=== PATIENT | male | born 1970 | race Caucasian/White ===

== ENCOUNTER 2019-04-21 17:09 | Emergency (ER) | payer SELFPAY ==
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
== END 2019-04-21 17:27 | disposition home or self-care (01) ==
LOC: ER 17:09
DX: Z48.02 Encounter for removal of sutures (principal)
CPT/HCPCS: 99282

== ENCOUNTER 2022-07-28 17:37 | Emergency (ER) | payer SELFPAY ==
--- NOTE | 2022-07-28 18:56 | ER ---
Nurse's Notes [facility] Name: All Bazan Jr Age: 52 yrs Sex: Male : 1970 Arrival Date: 07/28/2022 Time: 17:38 Bed DIS1 Private MD: Diagnosis: Scabies Presentation: 07/28 18:53 Chief complaint: Patient states: he has been around someone with scabes and now has a ap3 rash and believes that is what he has. Coronavirus screen: At this time, the client does not indicate any symptoms associated with coronavirus-19. Ebola Screen: No symptoms or risks identified at this time. Initial Sepsis Screen: Does the patient meet any 2 criteria? No. Patient's initial sepsis screen is negative. Does the patient have a suspected source of infection? No. Patient's initial sepsis screen is negative. Risk Assessment: Do you want to hurt yourself or someone else? Patient reports no desire to harm self or others. Onset of symptoms was July 28, 2022. 18:53 Method Of Arrival: Ambulatory ap3 18:53 Acuity: MACIE 4 ap3 Triage Assessment: 18:54 General: Appears uncomfortable, Behavior is calm, cooperative. Pain: Complains of pain ap3 in all over. Neuro: Level of Consciousness is awake, alert, obeys commands, Oriented to person, place, time. Cardiovascular: Patient's skin is warm and dry. Respiratory: Airway is patent Respiratory effort is even, unlabored. Derm: Rash noted that is on face, back, chest, abdomen, right arm, left arm, right leg and left leg. Historical: - Allergies: 18:53 No Known Allergies; ap3 - PMHx: 18:53 Hypertension; Diabetes mellitus; Hypercholesterolemia; ap3 - Immunization history:: Client reports receiving the 2nd dose of the Covid vaccine, Flu vaccine is up to date. - Social history:: Smoking status: Patient reports the use of cigarette tobacco products, denies chronic smoking, but will smoke occasionally. Screenin:55 Abuse screen: Denies threats or abuse. Nutritional screening: No deficits noted. ap3 Tuberculosis screening: No symptoms or risk factors identified. Fall Risk None identified. Assessment: 19:12 General: Appears in no apparent distress. tw5 Vital Signs: 18:53 BP 124 / 75; Pulse 110; Temp 92.3; Pulse Ox 100% ; Weight 136.08 kg; Height 6 ft. ap3 (182.88 cm); 18:53 Body Mass Index 40.69 (136.08 kg, 182.88 cm) ap3 ED Course: 17:38 Patient arrived in ED. as 17:50 Jacqueline Bauer [facility]-C [facility] snw 17:50 Jose A Pearson MD is Attending Physician. snw 18:53 Triage completed. ap3 18:55 Arm band placed on right wrist. ap3 18:55 Patient has correct armband on for positive identification. ap3 18:55 No provider procedures requiring assistance completed. Patient did not have IV access ap3 during this emergency room visit. Administered Medications: No medications were administered Medication: 18:55 VIS not applicable for this client. ap3 Outcome: 18:55 Discharge ordered by . snw 19:12 Discharged to home ambulatory. tw5 19:12 Condition: good 19:12 Discharge instructions given to patient, Instructed on discharge instructions, follow up and referral plans. medication usage, Demonstrated understanding of instructions, follow-up care, medications, Prescriptions given X 2. 19:13 Patient left the ED. tw5 Signatures: Jacqueline Bauer FNP-C PAYROLL SECRETARY-Gissel Chase Amanda, RN RN ap3 Roxanne Mina tw5
--- NOTE | 2022-07-28 18:56 | EDPHYS ---
Physician Documentation [facility] Name: All Bazan Jr Age: 52 yrs Sex: Male : 1970 Arrival Date: 07/28/2022 Time: 17:38 Bed DIS1 Private MD: ED Physician Jose A Pearson HPI: 07/28 19:01 This 52 yrs old Male presents to ER via Ambulatory with complaints of Rash. snw 19:01 The patient's rash thought to be caused by Dermatitis. The rash is located on the body snw diffusely. The rash can be described as papular, linear burrows. Onset: The symptoms/episode began/occurred acutely, suddenly. Associated signs and symptoms: Pertinent positives: itching. Severity of symptoms: At their worst the symptoms were moderate severe. The patient has not experienced similar symptoms in the past. The patient has not recently seen a physician. Historical: - Allergies: 18:53 No Known Allergies; ap3 - PMHx: 18:53 Hypertension; Diabetes mellitus; Hypercholesterolemia; ap3 - Immunization history:: Client reports receiving the 2nd dose of the Covid vaccine, Flu vaccine is up to date. - Social history:: Smoking status: Patient reports the use of cigarette tobacco products, denies chronic smoking, but will smoke occasionally. ROS: 19:01 Constitutional: Negative for fever, chills, and weight loss, Eyes: Negative for injury, snw pain, redness, and discharge, ENT: Negative for injury, pain, and discharge, Neck: Negative for injury, pain, and swelling, Cardiovascular: Negative for chest pain, palpitations, and edema, Respiratory: Negative for shortness of breath, cough, wheezing, and pleuritic chest pain, Abdomen/GI: Negative for abdominal pain, nausea, vomiting, diarrhea, and constipation, Back: Negative for injury and pain, : Negative for injury, bleeding, discharge, and swelling, MS/Extremity: Negative for injury and deformity, Neuro: Negative for headache, weakness, numbness, tingling, and seizure, Psych: Negative for depression, anxiety, suicide ideation, homicidal ideation, and hallucinations. 19:01 Skin: Positive for rash. Exam: 19:00 Constitutional: This is a well developed, well nourished patient who is awake, alert, snw and in no acute distress. Eyes: Pupils equal round and reactive to light, extra-ocular motions intact. Lids and lashes normal. Conjunctiva and sclera are non-icteric and not injected. Cornea within normal limits. Periorbital areas with no swelling, redness, or edema. ENT: Nares patent. No nasal discharge, no septal abnormalities noted. Tympanic membranes are normal and external auditory canals are clear. Oropharynx with no redness, swelling, or masses, exudates, or evidence of obstruction, uvula midline. Mucous membranes moist. Neck: Trachea midline, no thyromegaly or masses palpated, and no cervical lymphadenopathy. Supple, full range of motion without nuchal rigidity, or vertebral point tenderness. No Meningismus. Chest/axilla: Normal chest wall appearance and motion. Nontender with no deformity. No lesions are appreciated. Cardiovascular: Regular rate and rhythm with a normal S1 and S2. No gallops, murmurs, or rubs. Normal PMI, no JVD. No pulse deficits. Respiratory: Lungs have equal breath sounds bilaterally, clear to auscultation and percussion. No rales, rhonchi or wheezes noted. No increased work of breathing, no retractions or nasal flaring. Abdomen/GI: Soft, non-tender, with normal bowel sounds. No distension or tympany. No guarding or rebound. No evidence of tenderness throughout. Back: No spinal tenderness. No costovertebral tenderness. Full range of motion. MS/ Extremity: Pulses equal, no cyanosis. Neurovascular intact. Full, normal range of motion. Neuro: Awake and alert, GCS 15, oriented to person, place, time, and situation. Cranial nerves II-XII grossly intact. Motor strength 5/5 in all extremities. Sensory grossly intact. Cerebellar exam normal. Normal gait. Psych: Awake, alert, with orientation to person, place and time. Behavior, mood, and affect are within normal limits. 19:00 Head/face: Noted is rash, around nares. 19:00 Skin: rash a moderate rash is noted, scabies. Vital Signs: 18:53 BP 124 / 75; Pulse 110; Temp 92.3; Pulse Ox 100% ; Weight 136.08 kg; Height 6 ft. ap3 (182.88 cm); 18:53 Body Mass Index 40.69 (136.08 kg, 182.88 cm) ap3 MDM: 18:55 Patient medically screened. snw 19:01 Data reviewed: vital signs, nurses notes. Data interpreted: Pulse oximetry: on room air snw is 100 %. Interpretation: normal. Counseling: I had a detailed discussion with the patient and/or guardian regarding: the historical points, exam findings, and any diagnostic results supporting the discharge/admit diagnosis, the need for outpatient follow up, to return to the emergency department if symptoms worsen or persist or if there are any questions or concerns that arise at home. Special discussion: I have referred the patient to see his PCP for further evaluation of high blood pressure. Based on the history and exam findings, there is no indication for further emergent testing or inpatient evaluation. I discussed with the patient/guardian the need to see the primary care provider for further evaluation of the symptoms. Administered Medications: No medications were administered Disposition Summary: 07/28/22 18:55 Discharge Ordered Location: Home snw Condition: Stable snw Diagnosis - Scabies snw Followup: snw - With: Emergency Department - When: As needed - Reason: Worsening of condition Followup: snw - With: Private Physician - When: 2 - 3 days - Reason: Recheck today's complaints, Continuance of care, Re-evaluation by your physician Discharge Instructions: - Discharge Summary Sheet snw - Scabies, Adult snw Forms: - Medication Reconciliation Form snw - Thank You Letter snw - Antibiotic Education snw - Prescription Opioid Use snw - Work release form hb Prescriptions: - Elimite 5 % Topical Cream - apply 1 application by TOPICAL route one time Wash after 12 hours.; 60 gram; snw Refills: 0, Product Selection Permitted - Hydroxyzine HCl 50 mg Oral Tablet - take 1 tablet by ORAL route every 8 hours As needed; 20 tablet; Refills: 0, snw Product Selection Permitted Addendum: 07/31/2022 19:07 Co-signature as Attending Physician, Jose A Pearson MD. r n Signatures: Jacqueline Bauer, SHAPE CARVER-C SHAPE CARVER-Csnw Jose A Pearson MD MD rn Prokisch, Amanda, RN RN ap3
[2022-07-28 20:24] VITALS: BP 124/75; TEMP 92.3; O2SAT 100
== END 2022-07-28 19:13 | disposition home or self-care (01) ==
LOC: ER 17:37
DX: B86 Scabies (principal); Z72.0 Tobacco use
CPT/HCPCS: 99281

== ENCOUNTER → 2023-10-26 | Emergency (ER) | payer SELFPAY ==
[~2023-10-26] MED LIST: CLINDAMYCIN 900MG/D5W 900 MG/50 ML IVPB IV ONE; HYDROCODONE/APAP 5/325 MG TAB ONE; IBUPROFEN 400 MG TAB ONE; NA CHLORIDE 0.9% 1,000 ML ONE; SMZ./TMP. 800/160 MG TABLET ONE; dexAMETHasone 10 MG/ML VIAL ONE
--- NOTE | 2023-10-26 19:50 | RAD REPORT ---
EXAM DESCRIPTION: PEG - HAND - 10/26/2023 7:27 pm CLINICAL HISTORY: Pain;Swelling COMPARISON: No comparisons TECHNIQUE: Left hand, 3 views. FINDINGS: No fracture is identified. There is no dislocation or periosteal reaction noted. Joint alignment is maintained. No foreign body or other soft tissue abnormality. IMPRESSION: Negative left hand examination.
[2023-10-26 20:02] LABS: Absolute Basophils 0.1 K/uL (0-0.5); Absolute Lymphocytes (CBC) 1.7 K/uL (0.7-4.9); Hematocrit 48.5 % (39.6-49.0); Lymphocytes % 16.1 % (15.3-44.8); MCV 85.5 fL (80-100); MPV 9.4 fL (7.6-11.3); Platelets 203 thou/uL (152-406); RBC Red Blood Cell Count 5.67 M/uL (4.33-5.43)
[2023-10-26 20:12] LABS: Anion Gap 8.9 mEq/L (5.0-15.0); Potassium 3.9 mEq/L (3.5-5.1)
--- NOTE | 2023-10-26 21:13 | ER ---
Nurse's Notes [facility] Name: All Bazan Jr Age: 53 yrs Sex: Male : 1970 Arrival Date: 10/26/2023 Time: 18:29 Bed 9 Private MD: Diagnosis: Cellulitis of left upper limb Presentation: 10/25 19:04 Chief complaint: Patient states: insect bite to left hand about 2 days ago with redness km8 and swelling; denies fever. Coronavirus screen: Client denies travel out of the [place] in the last 14 days. Ebola Screen: No symptoms or risks identified at this time. Initial Sepsis Screen: Does the patient meet any 2 criteria? HR > 90 bpm. No. Patient's initial sepsis screen is negative. Does the patient have a suspected source of infection? No. Patient's initial sepsis screen is negative. Risk Assessment: Do you want to hurt yourself or someone else? Patient reports no desire to harm self or others. Onset of symptoms was October 24, 2023. 19:04 Method Of Arrival: Ambulatory [facility] 19:04 Acuity: MACIE 3 km8 Triage Assessment: 19:08 Bite description: bite sustained to left hand was sustained 2 days ago. by insect, km8 animal information: vaccination(s) is not applicable. General: Appears in no apparent distress. comfortable, Behavior is calm, cooperative, appropriate for age. Pain: Complains of pain in left hand Pain currently is 5 out of 10 on a pain scale. Neuro: Level of Consciousness is awake, alert, obeys commands, Oriented to person, place, time, situation. Cardiovascular: Denies chest pain, shortness of breath, Patient's skin is warm and dry. Respiratory: Airway is patent Respiratory effort is even, unlabored, Respiratory pattern is regular, symmetrical. Derm: Skin is healthy with good turgor, Skin is dry, Skin is pink, warm \T\ dry. Skin temperature is warm Wound noted left hand Wound is insect bite with redness and swelling noted. Musculoskeletal: Swelling present in left hand. Historical: - Allergies: 19:08 No Known Allergies; km8 - PMHx: 19:08 diabetes mellitus; Hypercholesterolemia; Hypertension; km8 - PSHx: 19:08 Tonsillectomy; km8 - Immunization history:: Client reports receiving the 2nd dose of the Covid vaccine, Flu vaccine is not up to date. - Social history:: Smoking status: Patient reports the use of cigarette tobacco products, smokes one-half pack cigarettes per day, Patient uses street drugs, cocaine, Patient/guardian denies using alcohol. Screenin:00 [facility] ED Fall Risk Assessment (Adult) History of falling in the last 3 months, ha1 including since admission No falls in past 3 months (0 pts) Confusion or Disorientation No (0 pts) Intoxicated or Sedated No (0 pts) Impaired Gait No (0 pts) Mobility Assist Device Used No (0 pt) Altered Elimination No (0 pt) Score/Fall Risk Level 0 - 2 = Low Risk Oriented to surroundings, Maintained a safe environment, Hourly rounding (assess needs \T\ fall precautionary measures) done. Abuse screen: Denies threats or abuse. Denies injuries from another. Nutritional screening: No deficits noted. Tuberculosis screening: No symptoms or risk factors identified. Assessment: 19:20 General: Appears uncomfortable, Behavior is calm, cooperative. Pain: Complains of pain ha1 in left hand Pain does not radiate. Pain currently is 7 out of 10 on a pain scale. Quality of pain is described as throbbing. Neuro: Level of Consciousness is awake, alert, obeys commands, Oriented to person, place, time, situation. Cardiovascular: Capillary refill < 3 seconds Patient's skin is warm and dry. Respiratory: Airway is patent Respiratory effort is even, unlabored, Respiratory pattern is regular, symmetrical. GI: No signs and/or symptoms were reported involving the gastrointestinal system. Derm: redness and swelling on the left hand. Musculoskeletal: Circulation, motion, and sensation intact. Range of motion: intact in all extremities. 20:10 Reassessment: Patient and/or family updated on plan of care and expected duration. Pain ha1 level reassessed. Patient is alert, oriented x 3, equal unlabored respirations, skin warm/dry/pink. 20:53 Reassessment: provided turkey sandwich and a drink. ha1 20:56 Reassessment: Patient and/or family updated on plan of care and expected duration. Pain ha1 level reassessed. Patient is alert, oriented x 3, equal unlabored respirations, skin warm/dry/pink. Patient states feeling better. Patient states symptoms have improved. 21:28 Reassessment: Patient and/or family updated on plan of care and expected duration. Pain ha1 level reassessed. Patient is alert, oriented x 3, equal unlabored respirations, skin warm/dry/pink. Vital Signs: 19:04 BP 181 / 160; Pulse 103; Resp 16; Temp 97.6(TE); Pulse Ox 99% on R/A; Weight 115.67 kg km8 (R); Height 6 ft. 0 in. (R); Pain 5/10; 19:20 BP 162 / 95; Pulse 98; Resp 17 S; Pulse Ox 98% on R/A; ha1 20:20 BP 147 / 92; Pulse 95; Resp 17 S; Pulse Ox 98% on R/A; ha1 21:20 BP 149 / 89; Pulse 90; Resp 17 S; Pulse Ox 100% on R/A; ha1 19:04 Body Mass Index 34.58 (115.67 kg, 182.88 cm) km8 19:04 Pain Scale: Adult [facility] ED Course: 18:30 Patient arrived in ED. im 18:33 Rustam Yarbrough PA is PHCP. cp 18:33 Jesus Manuel Peace DO is Attending Physician. cp 19:08 Triage completed. km8 19:08 Arm band placed on right wrist. km8 19:08 Door closed. Warm blanket given. Pillow given. ha1 19:29 XRAY Hand LEFT 3 View In Process Unspecified. EDMS 19:35 Inserted saline lock: 20 gauge in right forearm, using aseptic technique. Blood ha1 collected. 19:53 BMP Sent. ha1 19:53 CBC with Diff Sent. ha1 19:53 Lactate w/ 2H reflex if indic. Sent. ha1 19:53 Blood Culture Adult (2) Sent. ha1 20:00 Patient has correct armband on for positive identification. Bed in low position. Call ha1 light in reach. Side rails up X 1. 20:11 Loly Ibrahim, RN is Primary Nurse. ha1 20:59 Provided Education on: medication administration . ha1 21:29 No provider procedures requiring assistance completed. IV discontinued, intact, ha1 bleeding controlled, No redness/swelling at site. Pressure dressing applied. Administered Medications: 20:01 Drug: HYDROcodone-acetaminophen PO 5 mg-325 mg 1 tabs PO once Route: PO; ha1 20:57 Follow up: Response: No adverse reaction; Pain is decreased; RASS: Alert and Calm (0) ha1 20:01 Drug: Ibuprofen PO 800 mg PO once Route: PO; ha1 20:57 Follow up: Response: No adverse reaction; Pain is decreased ha1 20:38 Drug: Decadron - Dexamethasone IVP 10 mg IVP once Route: IVP; Site: right forearm; ha1 21:30 Follow up: Response: No adverse reaction ha1 20:40 Drug: Clindamycin IVPB 900 mg IVPB once over 30 mins; (mix in 50 mL) Route: IVPB; ha1 Infused Over: 30 mins; Site: right forearm; 21:30 Follow up: Response: No adverse reaction; IV Status: Completed infusion; IV Intake: [id number] 20:40 Drug: Trimethoprim-Sulfamethoxazole PO (160 mg-800 mg (DS) 2 tablet PO once Route: PO; ha1 21:30 Follow up: Response: No adverse reaction ha1 20:40 Drug: NS 0.9% IV 1000 ml IV at 1 bolus Per protocol; 1000 mL bolus Route: IV; Rate: 1 ha1 bolus; Site: right forearm; 21:29 Follow up: Response: No adverse reaction; Marked relief of symptoms; IV Status: ha1 Completed infusion; IV Intake: 1000ml Medication: 20:59 VIS not applicable for this client. ha1 Intake: 21:29 IV: 1000ml; Total: 1000ml. ha1 21:30 IV: 50ml; Total: 1050ml. ha1 Outcome: 21:12 Discharge ordered by MD. cp 21:29 Discharged to home ambulatory, ha1 21:29 Condition: stable 21:29 Discharge instructions given to patient, Instructed on discharge instructions, follow up and referral plans. medication usage, Demonstrated understanding of instructions, follow-up care, medications, Prescriptions given X 3, 21:30 Patient left the ED. ha1 Signatures: Dispatcher [employer] EDMS Rustam Yarbrough PA PA cp Ayala, Heidy, RN RN ha1 Jasmyne Young Katie, RN RN km8 Corrections: (The following items were deleted from the chart) 20:57 20:56 Reassessment: Patient and/or family updated on plan of care and expected ha1 duration. Pain level reassessed. Patient is alert, oriented x 3, equal unlabored respirations, skin warm/dry/pink. ha1
--- NOTE | 2023-10-26 21:13 | EDPHYS ---
Physician Documentation [facility] Name: All Bazan Jr Age: 53 yrs Sex: Male : 1970 Arrival Date: 10/26/2023 Time: 18:29 Bed 9 Private MD: ED Physician Jesus Manuel Peace HPI: 10/25 19:10 This 53 yrs old Male presents to ER via Ambulatory with complaints of Insect Bite - on cp hand. 19:10 The patient or guardian reports pain, swelling, tenderness. The complaints affect the cp dorsum of left hand. 19:10 Context: possible spider bite. Onset: The symptoms/episode began/occurred yesterday, cp and became worse today. Associated signs and symptoms: Pertinent negatives: fever. Historical: - Allergies: 19:08 No Known Allergies; km8 - PMHx: 19:08 diabetes mellitus; Hypercholesterolemia; Hypertension; km8 - PSHx: 19:08 Tonsillectomy; km8 - Immunization history:: Client reports receiving the 2nd dose of the Covid vaccine, Flu vaccine is not up to date. - Social history:: Smoking status: Patient reports the use of cigarette tobacco products, smokes one-half pack cigarettes per day, Patient uses street drugs, cocaine, Patient/guardian denies using alcohol. ROS: 19:15 MS/extremity: Positive for pain, swelling, tenderness, of the left hand, Negative for cp paresthesias, 19:15 Constitutional: Negative for body aches, chills, fever, poor PO intake, cp Exam: 19:20 Constitutional: The patient appears in no acute distress, alert, awake, non-toxic, well cp developed, well nourished, obese, 19:20 Head/Face: Normocephalic, atraumatic. cp 19:20 Eyes: Periorbital structures: appear normal, Conjunctiva: normal, no exudate, no injection, Sclera: no appreciated abnormality, Lids and lashes: appear normal, bilaterally, 19:20 ENT: External ear(s): are unremarkable, Nose: is normal, Mouth: Lips: moist, Oral cp mucosa: moist, Posterior pharynx: Airway: no evidence of obstruction, patent, 19:20 Chest/axilla: Inspection: normal, 19:20 Cardiovascular: Rate: tachycardic, Rhythm: regular, cp 19:20 Respiratory: the patient does not display signs of respiratory distress, Respirations: normal, no use of accessory muscles, no retractions, labored breathing, is not present, Breath sounds: are clear throughout, no decreased breath sounds, no stridor, no wheezing, 19:20 Abdomen/GI: Exam negative for discomfort, distension, guarding, Inspection: abdomen appears normal, 19:20 Musculoskeletal/extremity: Extremities: noted in the left hand: dorsal side swelling, mild erythema, several superficial skin wounds noted, ROM: full active range of motion, in the left hand, Perfusion: the extremity is normally perfused throughout, the left hand Sensation intact. Vital Signs: 19:04 BP 181 / 160; Pulse 103; Resp 16; Temp 97.6(TE); Pulse Ox 99% on R/A; Weight 115.67 kg km8 (R); Height 6 ft. 0 in. (R); Pain 5/10; 19:20 BP 162 / 95; Pulse 98; Resp 17 S; Pulse Ox 98% on R/A; ha1 20:20 BP 147 / 92; Pulse 95; Resp 17 S; Pulse Ox 98% on R/A; ha1 21:20 BP 149 / 89; Pulse 90; Resp 17 S; Pulse Ox 100% on R/A; ha1 19:04 Body Mass Index 34.58 (115.67 kg, 182.88 cm) km8 19:04 Pain Scale: Adult km8 MDM: 19:20 Patient medically screened. 20:00 Differential diagnosis: closed fracture, cellulitis, abscess. 21:11 Data reviewed: vital signs, nurses notes, lab test result(s), radiologic studies, plain cp films. 21:11 I considered the following discharge prescriptions or medication management in the emergency department Medications were administered in the Emergency Department. See MAR. Care significantly affected by the following chronic conditions: Diabetes, Hypertension. Counseling: I had a detailed discussion with the patient and/or guardian regarding the historical points, exam findings, and any diagnostic results supporting the discharge/admit diagnosis, lab results, radiology results, to return to the emergency department if symptoms worsen or persist or if there are any questions or concerns that arise at home. Response to treatment: the patient's symptoms have mildly improved after treatment, and as a result, I will discharge patient. 10/25 18:59 Order name: CBC with Diff; Complete Time: 20:16 cp 10/25 20:17 Interpretation: Normal except: RBC 5.67. cp 10/25 18:59 Order name: BMP; Complete Time: 20:17 cp 10/25 19:20 Order name: Blood Culture Adult (2) cp 10/25 19:20 Order name: Lactate w/ 2H reflex if indic.; Complete Time: 21:11 cp 10/25 18:59 Order name: XRAY Hand LEFT 3 View; Complete Time: 20:17 cp 10/25 18:59 Order name: IV; Complete Time: 19:53 cp Administered Medications: 20:01 Drug: HYDROcodone-acetaminophen PO 5 mg-325 mg 1 tabs PO once Route: PO; ha1 20:57 Follow up: Response: No adverse reaction; Pain is decreased; RASS: Alert and Calm (0) ha1 20:01 Drug: Ibuprofen PO 800 mg PO once Route: PO; ha1 20:57 Follow up: Response: No adverse reaction; Pain is decreased ha1 20:38 Drug: Decadron - Dexamethasone IVP 10 mg IVP once Route: IVP; Site: right forearm; ha1 21:30 Follow up: Response: No adverse reaction ha1 20:40 Drug: Clindamycin IVPB 900 mg IVPB once over 30 mins; (mix in 50 mL) Route: IVPB; ha1 Infused Over: 30 mins; Site: right forearm; 21:30 Follow up: Response: No adverse reaction; IV Status: Completed infusion; IV Intake: 99osep1 20:40 Drug: Trimethoprim-Sulfamethoxazole PO (160 mg-800 mg (DS) 2 tablet PO once Route: PO; ha1 21:30 Follow up: Response: No adverse reaction ha1 20:40 Drug: NS 0.9% IV 1000 ml IV at 1 bolus Per protocol; 1000 mL bolus Route: IV; Rate: 1 ha1 bolus; Site: right forearm; 21:29 Follow up: Response: No adverse reaction; Marked relief of symptoms; IV Status: ha1 Completed infusion; IV Intake: 1000ml Disposition: 10/26 15:57 I was immediately available on-site in the Emergency Department for consultation in the ct3 care of the patient. Disposition Summary: 10/26/23 21:12 Discharge Ordered Notes: Location: Home cp Problem: new cp Symptoms: have improved cp Condition: Stable cp Diagnosis - Cellulitis of left upper limb cp Followup: cp - With: Private Physician - When: 2 - 3 days - Reason: Worsening of condition Discharge Instructions: - Discharge Summary Sheet cp - Cellulitis, Adult cp Forms: - Medication Reconciliation Form cp - Thank You Letter cp - Antibiotic Education cp - Prescription Opioid Use cp - Patient Portal Instructions cp - Leadership Thank You Letter cp Prescriptions: - Clindamycin HCl 300 mg Oral Capsule - take 1 capsule ORAL route every 6 hours for 10 days; 40 capsule; Refills: 0, cp Product Selection Permitted - Diclofenac Sodium 75 mg Oral Tablet Sustained Release - take 1 tablet ORAL route 2 times per day; 30 tablet; Refills: 0, Product cp Selection Permitted - Bactrim DS 800-160 mg Oral Tablet - take 1 tablet ORAL route every 12 hours for 10 days; 20 tablet; Refills: 0, cp Product Selection Permitted Signatures: Dispatcher [employer] EDRustam Gayle PA PA cp Sims, Marcus, DO DO ms3 Loly Ibrahim RN RN ha1 Rose Zhao RN RN km8
[2023-10-26 22:36] VITALS: TEMP 97.6
[2023-10-26 23:04] VITALS: BP 149/89; O2SAT 100
== END ==
LOC: ER 18:29
DX: L03.114 Cellulitis of left upper limb (principal)
CPT/HCPCS: 36415; 80048; 83605; 85025; 87040; 96365; 96375; 99284; J1100; J7030

== ENCOUNTER 2024-09-22 09:50 | Inpatient (IN) | payer OTHER, SELFPAY ==
[2024-09-22] MEDS ORDERED: LORazepam 2 MG/ML VIAL ONE (10:24)
[2024-09-22] MEDS ORDERED: NA CHLORIDE 0.9% 1,000 ML ONE ×2 (10:25→11:21)
[2024-09-22] MEDS ORDERED: ACETAMINOPHEN 500 MG TAB ONE (10:25)
--- NOTE | 2024-09-22 10:41 | RAD REPORT ---
EXAM: Chest Single View HISTORY: Cough;Dyspnea COMPARISON: None. FINDINGS: LUNGS/PLEURA: Widespread opacities throughout the right lung. Right pleural effusion difficult to exc lude. Left lung is clear. MEDIASTINUM: The mediastinal silhouette is within normal limits. CARDIAC: The cardiac silhouette is within normal limits. UPPER ABDOMEN: No significant abnormality. BONES: No acute abnormality. LINES/TUBES/OTHER: N/A IMPRESSION: Widespread opacities throughout the right lung which could reflect pneumonia or aspiration, with/with out layering pleural fluid. Consider chest CT for further evaluation.
[2024-09-22 10:49] LABS: Barbiturates NEGATIVE (NEGATIVE); Benzodiazepines NEGATIVE (NEGATIVE); Cocaine POSITIVE (NEGATIVE); METHAMPHETAM NEGATIVE (NEGATIVE); Methadone NEGATIVE (NEGATIVE); Opiates NEGATIVE (NEGATIVE); Phencyclidine NEGATIVE (NEGATIVE); THC Cannibis NEGATIVE (NEGATIVE)
[2024-09-22 11:21] LABS: SARS-CoV-2 Antigen CONTROL BLUE LINE VIS/BG OK; SARS-CoV-2 Antigen Rapid Res Negative (Negative)
[2024-09-22] MEDS ORDERED: PIPERACIL/TAZO 3.375 GM VIAL IV ONE (11:21)
--- NOTE | 2024-09-22 11:50 | RAD REPORT ---
EXAMINATION: CT CHEST WITHOUT CONTRAST CLINICAL INDICATION: Male, 54 years old. dyspnea, unable to get proper IV TECHNIQUE: Routine CT scan of the chest without intravenous contrast. One or more of the following do se reduction techniques were used: Automated exposure control, adjustment of the mA and/or kV according to patient size, and/or iterative reconstruction. Unless otherwise specified, incidental fi ndings do not require dedicated imaging follow-up. [id number]. COMPARISON: 04/14/2019 FINDINGS: LOWER NECK: Visualized thyroid gland and soft tissues are normal. LUNGS AND AIRWAYS: Large areas of confluent airspace disease with air bronchograms in the right upper and right lower lobe motion artifact present. The left lung is mostly clear.Motion artifact limits evaluation for pulmonary nodule detection. PLEURA: Trace right pleural fluid MEDIASTINUM AND LYMPH NODES: Right hilar lymph nodes not well assessed as the consolidation is contig uous with the right hilum. No mediastinal lymphadenopathy. THORACIC AORTA: No thoracic aortic aneurysm. PULMONARY ARTERIES: Caliber is within normal limits. HEART: Normal heart size. Coronary arterial calcifications are present.No significant pericardial eff usion. OSSEOUS STRUCTURES AND CHEST WALL: No fracture or suspicious osseous lesions. UPPER ABDOMEN: No acute abnormalities. IMPRESSION: Large areas of consolidative airspace disease in the right lung presumably representing pneumonia. Th e left lung is clear. Suggest either imaging follow-up to ensure improvement or bronchoscopy for further evaluation.
[2024-09-22] MEDS ORDERED: MORPHINE 4 MG/ML SYR ONE (12:03)
--- NOTE | 2024-09-22 12:08 | EDPHYS ---
Physician Documentation [facility] Name: All Bazan Jr Age: 54 yrs Sex: Male : 1970 Arrival Date: 09/22/2024 Time: 09:50 Bed 7 Private MD: ED Physician Jose A Pearson HPI: 09/22 09:59 This 54 yrs old Male presents to ER via Unassigned with complaints of sob. rn 09:59 The patient has shortness of breath at rest, with light activity. Onset: The rn symptoms/episode began/occurred at an unknown time. The patient's shortness of breath is aggravated by coughing, exertion, light activity. Severity of symptoms: At their worst the symptoms were moderate in the emergency department the symptoms are unchanged. The patient has not experienced similar symptoms in the past. Patient brought in by EMS for shortness of breath, EMS reports fever and cough, oxygen was in the 80s. No hemoptysis. Cough productive of yellow sputum. No trauma.. Historical: - Allergies: 12:34 No Known Allergies; bp - PMHx: 12:34 diabetes mellitus; Hypercholesterolemia; Hypertension; bp - PSHx: 12:34 Tonsillectomy; bp - Immunization history:: Adult Immunizations. - Infectious Disease History:: Denies. - Family history:: not pertinent. - Social history:: Smoking status: Patient denies any tobacco usage or history of. - Hospitalizations: : No recent hospitalization is reported. ROS: 09:59 Constitutional: Positive for subjective fever Eyes: Negative for injury, pain, redness, rn and discharge, Cardiovascular: Positive for right sided chest pain Respiratory: Positive for cough and shortness of breath Abdomen/GI: Negative for abdominal pain, nausea, vomiting, diarrhea, and constipation, Back: Negative for injury and pain, Neuro: Negative for headache, weakness, numbness, tingling, and seizure, Exam: 09:59 Constitutional: This is a well developed, well nourished patient who is awake, alert, rn slightly agitated ENT: No stridor Cardiovascular: Tachycardic, regular. Respiratory: Mild tachypnea, crackles bilaterally Abdomen/GI: Soft, nontender Neuro: Awake and alert, GCS 15 Vital Signs: 10:08 BP 186 / 112; Pulse 131; Resp 30; Pulse Ox 99% on Non-rebreather mask; ld1 11:39 BP 155 / 107; Pulse 131; Pulse Ox 100% ; ld1 11:50 BP 151 / 82; Pulse 124; Resp 35; Pulse Ox 92% on 15 lpm Non-rebreather mask; ld1 12:33 BP 151 / 106; Pulse 121; Resp 30; Pulse Ox 95% ; bp 12:46 BP 148 / 90; Pulse 118; Resp 32; Pulse Ox 99% on BiPAP; ld1 MDM: 09:51 Medical Screening Exam initiated rn 11:23 ED course: Patient not cooperative, handed to urinal when patient urinated on bed and rn floor instead.. 12:06 Differential diagnosis: pneumonia, Pneumothorax pulmonary edema. Data reviewed: vital rn signs, nurses notes, lab test result(s), radiologic studies, CT scan, plain films, and as a result, I will admit patient. Consideration of Admission/Observation Patient was admitted/placed on observation. Escalation of care including admission/observation considered. Counseling: I had a detailed discussion with the patient and/or guardian regarding the historical points, exam findings, and any diagnostic results supporting the discharge/admit diagnosis, lab results, radiology results, the need for further work-up and treatment in the hospital. Response to treatment: the patient's symptoms have mildly improved after treatment, and as a result, I will admit patient. ED course: Patient still combative and not compliant with treatments here. Just pulled out his IV. Attempting BiPAP and we will see how he tolerates. Patient is alert and with it enough to decline at this time, explained to him how sick he is and critical condition and patient continues to yell at staff and not do as we ask. Told him that if he does not let us help him he will likely decline and require intubation.. 09/22 09:51 Order name: Blood Culture Adult (2) rn 09/22 09:51 Order name: CBC with Diff rn 09/22 09:51 Order name: CMP; Complete Time: 12:39 rn 09/22 09:51 Order name: Lactate w/ 2H reflex if indic.; Complete Time: 11:05 rn 09/22 09:51 Order name: Protime (+inr); Complete Time: 12:31 rn 09/22 09:51 Order name: Ptt, Activated; Complete Time: 12:31 rn 09/22 09:51 Order name: Flu; Complete Time: 11:44 rn 09/22 09:51 Order name: SARS-COV-2 Antigen Rapid; Complete Time: 11:44 rn 09/22 09:51 Order name: Urine Drug Screen; Complete Time: 11:05 rn 09/22 09:52 Order name: BNP; Complete Time: 12:39 rn 09/22 10:08 Order name: Troponin High Sensitivity; Complete Time: 12:31 rn 09/22 11:00 Order name: Ghost Lactate-NO COLLECT Timer EDAR 09/22 12:11 Order name: ABG la1 09/22 12:53 Order name: Manual Differential EDMS 09/22 13:14 Order name: Acid Fast Bacilli Culture EDAR 09/22 13:14 Order name: QUANTIFERON TB GOLD PLUS EDAR 09/22 13:14 Order name: Sputum Culture EDAR 09/22 13:14 Order name: Sputum Gram Stain EDAR 09/22 13:53 Order name: Lactate Sepsis 2 HR Follow-up EDAR 09/22 09:51 Order name: Chest Single View XRAY; Complete Time: 10:49 rn 09/22 11:06 Order name: CT Chest Wo Con; Complete Time: 11:52 rn 09/22 11:56 Order name: BIPAP rn 09/22 09:51 Order name: Accucheck; Complete Time: 10:08 rn 09/22 09:51 Order name: Cardiac monitoring; Complete Time: 10:00 rn 09/22 09:51 Order name: EKG - Nurse/Tech; Complete Time: 10:00 rn 09/22 09:51 Order name: IV Saline Lock - Large Bore; Complete Time: 10:08 rn 09/22 09:51 Order name: Labs collected and sent; Complete Time: 10:08 rn 09/22 09:51 Order name: O2 Per Protocol; Complete Time: 10:08 rn 09/22 09:51 Order name: O2 Sat Monitoring; Complete Time: 10:08 rn 09/22 09:51 Order name: Vital Signs; Complete Time: 10:23 rn 09/22 10:42 Order name: Labs - recollect needed: green, purple, and blue top need recollect; eb Complete Time: 12:22 Administered Medications: 10:29 CANCELLED (Duplicate Order): ativan1 mg IVP once bp 10:29 Drug: Ativan IVP 1 mg IVP once Route: IVP; Site: Other; bp 12:22 Follow up: Response: No adverse reaction; Anxiety unchanged ld1 10:30 Drug: Acetaminophen PO 650 mg PO once Route: PO; bp 12:23 Follow up: Response: No adverse reaction ld1 11:40 Drug: NS 0.9% IV 1000 ml IV at 1000 ml once; to be given as a bolus over 60 minutes ld1 Route: IV; Rate: 1000 ml; Site: Other; 14:27 Follow up: IV Status: Completed infusion bp 11:57 Drug: Piperacillin-Tazobactam IVPB 3.375 grams IVPB once over 60 mins; (mix in NS 100 bp mL) Route: IVPB; Infused Over: 60 mins; Site: Other; 14:27 Follow up: IV Status: Completed infusion bp 12:12 Drug: morphine IVP or IV 4 mg IVP once over 4 mins Route: IVP; Infused Over: 4 mins; ld1 Site: right forearm; 12:22 Follow up: Response: No adverse reaction ld1 12:38 Drug: vancoMYCIN IVPB 1 grams IVPB once over 2 hrs Route: IVPB; Infused Over: 2 hrs; bp Site: right antecubital; 14:27 Follow up: IV Status: Completed infusion bp 13:02 Drug: Insulin Regular Human Sub-Q 10 units Sub-Q once {Co-Signature: josiah (Gia Peace bp RN).} Route: Sub-Q; Site: right upper arm; 14:27 Follow up: Response: No adverse reaction bp 14:06 Drug: morphine IVP or IV 2 mg IVP once over 4 mins; Verbal order per Souleymane Madrigal Route: ld1 IVP; Infused Over: 4 mins; Site: right forearm; 14:27 Follow up: Response: No adverse reaction bp 14:08 CANCELLED (Other Intervention Used): [id number] mg IVP once la1 Disposition: 12:06 Critical Care:. rn Disposition Summary: 09/22/24 12:08 Hospitalization Ordered Notes: Hospitalization Status: Inpatient Admission rn Provider: Artemio Pearson rn Location: Intensive Care Unit rn Condition: Fair rn Problem: new rn Symptoms: are unchanged rn Bed/Room Type: Standard rn Room Assignment: 2-(09/22/24 13:25) eb Diagnosis - Pneumonia, unspecified organism rn - Hypoxemia rn - Restlessness and agitation rn Forms: - Medication Reconciliation Form rn - SBAR form rn - Leadership Thank You Letter morning news producer time excluding procedures: 12:06 Critical care time: Bedside Care: 30 minutes, Consultation: 5 minutes. Total time: 35 rn minutes Signatures: Dispatcher [employer] EDMS Jose A Pearson MD MD rn Attema, Lee, LIFE ADVISOR-C LIFE ADVISOR-Cla1 Audar Escobedo RN RN hb Drake Xie RN RN bp Rosmery Mesa Lauren, RN RN ld1 Gia Peace RN ld1 Corrections: (The following items were deleted from the chart) 09:52 09:52 BLOOD CULTURE*+BA.LAB.BRZ ordered. EDMS EDMS 09:52 09:52 CBC+H.LAB.BRZ ordered. EDMS EDMS 09:52 09:52 COMPREHENSIVE METABOLIC PANEL+C.LAB.BRZ ordered. EDMS EDMS 09:52 09:52 LACTATE+C.LAB.BRZ ordered. EDMS EDMS 09:52 09:52 PROTIME (+INR)+COAG.LAB.BRZ ordered. EDMS EDMS 09:52 09:52 PTT, ACTIVATED+COAG.LAB.BRZ ordered. EDMS EDMS 09:52 09:52 Influenza Screen (A \T\ B)+BA.LAB.BRZ ordered. EDMS EDMS 09:52 09:52 SARS-COV-2 Antigen Rapid+I.LAB.BRZ ordered. EDMS EDMS 09:52 09:52 URINE DRUG SCREEN+UC.LAB.BRZ ordered. EDMS EDMS 09:52 09:52 PROBNP+C.LAB.BRZ ordered. EDMS EDMS 10:29 10:23 Ativan IVP 1 mg IVP once ordered. rn bp 11:18 10:50 Thorax W/ Con+CT.RAD.BRZ ordered. EDMS EDMS 13:25 12:08 rn eb 14:08 13:56 MethylPrednisoLONE IVP 125 mg IVP once ordered. hb la1
--- NOTE | 2024-09-22 12:08 | ER ---
Nurse's Notes [facility] Name: All Bazan Jr Age: 54 yrs Sex: Male : 1970 Arrival Date: 09/22/2024 Time: 09:50 Bed 7 Private MD: Diagnosis: Pneumonia, unspecified organism;Hypoxemia;Restlessness and agitation Presentation: 09/22 10:00 Chief complaint: EMS states: SOB AND CHRONIC DRUG ABUSE, PER EMS. Coronavirus screen: bp At this time, the client does not indicate any symptoms associated with coronavirus-19. Ebola Screen: No symptoms or risks identified at this time. Initial Sepsis Screen: Does the patient meet any 2 criteria? RR > 20 per min. HR > 90 bpm. Yes Does the patient have a suspected source of infection?. Risk Assessment: Do you want to hurt yourself or someone else? Patient reports no desire to harm self or others. Onset of symptoms is unknown. 10:00 Method Of Arrival: EMS: [facility] bp 10:00 Acuity: MACIE 2 bp Triage Assessment: 10:00 General: Appears distressed, uncomfortable, unkempt, Behavior is restless, bp uncooperative. 10:00 Pain: Complains of pain in GENERALIZED. EENT: No deficits noted. Neuro: Level of bp Consciousness is obeys commands, confused, Oriented to person, place, time, situation. Cardiovascular: Rhythm is sinus tachycardia. Respiratory: Reports shortness of breath GI: No signs and/or symptoms were reported involving the gastrointestinal system. : No signs and/or symptoms were reported regarding the genitourinary system. Derm: No deficits noted. Musculoskeletal: No deficits noted. Historical: - Allergies: 12:34 No Known Allergies; bp - PMHx: 12:34 diabetes mellitus; Hypercholesterolemia; Hypertension; bp - PSHx: 12:34 Tonsillectomy; bp - Immunization history:: Adult Immunizations. - Infectious Disease History:: Denies. - Family history:: not pertinent. - Social history:: Smoking status: Patient denies any tobacco usage or history of. - Hospitalizations: : No recent hospitalization is reported. Screenin:00 [facility] ED Fall Risk Assessment (Adult) History of falling in the last 3 months, bp including since admission No falls in past 3 months (0 pts) Confusion or Disorientation Yes (5 pts) Intoxicated or Sedated No (0 pts) Impaired Gait No (0 pts) Mobility Assist Device Used No (0 pt) Altered Elimination No (0 pt) Score/Fall Risk Level 3 or more points = High Risk Oriented to surroundings. Abuse screen: Denies threats or abuse. Denies injuries from another. Nutritional screening: No deficits noted. Tuberculosis screening: No symptoms or risk factors identified. Assessment: 11:48 Reassessment: Pt back from CT at this time. Refusing to stay on monitor at this time. ld1 Cleaned of incontinence. Placed in gown, brief and male purewick at this time. Pt c/o shortness of breath, notified ERP. 12:25 Reassessment: Pt removed PIV and unhooking BIPAP. Pt disoriented - keep asking "What's ld1 wrong with me, I am ready to go.". 12:25 Reassessment: ERP at bedside assessing patient and speaking with family at this time. ld1 PT now allowing to be hooked up to BIPAP and monitor. Mother at bedside. 12:32 Reassessment: PT AGITATED AND ANXIOUS, REMOVING PIV AND BIPAP AND REQUIRING FREQUENT bp REDIRECTION TO REMAIN IN BED. MD INFORMED. Vital Signs: 10:08 BP 186 / 112; Pulse 131; Resp 30; Pulse Ox 99% on Non-rebreather mask; ld1 11:39 BP 155 / 107; Pulse 131; Pulse Ox 100% ; ld1 11:50 BP 151 / 82; Pulse 124; Resp 35; Pulse Ox 92% on 15 lpm Non-rebreather mask; ld1 12:33 BP 151 / 106; Pulse 121; Resp 30; Pulse Ox 95% ; bp 12:46 BP 148 / 90; Pulse 118; Resp 32; Pulse Ox 99% on BiPAP; ld1 ED Course: 09:50 Patient arrived in ED. ld1 09:51 Jose A Pearson MD is Attending Physician. rn 10:00 Arm band placed on. bp 10:00 Patient has correct armband on for positive identification. bp 10:07 Drake Xie, RN is Primary Nurse. bp 10:08 Initial lab(s) drawn, by me, sent to lab. First set of blood cultures drawn by me, bp Second set of blood cultures drawn by me, Urine collected: clean catch specimen, clear, EKG done, by ED staff, reviewed by Jose A Pearson MD COVID swab sent to lab. Flu and/or RSV swab sent to lab. Inserted saline lock: 18 gauge in left ,using aseptic technique. LOWER LEG Blood collected. Flushed with 10 mL NS. 10:37 Chest Single View XRAY In Process Unspecified. EDMS 11:39 CT Chest Wo Con In Process Unspecified. EDMS 12:08 Artemio Pearson MD is Hospitalizing Provider. rn 12:15 Inserted saline lock: 20 gauge in right forearm, using aseptic technique. Blood ld1 collected. Flushed with 10 mL NS. 12:34 Triage completed. bp 14:34 No provider procedures requiring assistance completed. Patient admitted, IV remains in ld1 place. Administered Medications: 10:29 CANCELLED (Duplicate Order): ativan1 mg IVP once bp 10:29 Drug: Ativan IVP 1 mg IVP once Route: IVP; Site: Other; bp 12:22 Follow up: Response: No adverse reaction; Anxiety unchanged ld1 10:30 Drug: Acetaminophen PO 650 mg PO once Route: PO; bp 12:23 Follow up: Response: No adverse reaction ld1 11:40 Drug: NS 0.9% IV 1000 ml IV at 1000 ml once; to be given as a bolus over 60 minutes ld1 Route: IV; Rate: 1000 ml; Site: Other; 14:27 Follow up: IV Status: Completed infusion bp 11:57 Drug: Piperacillin-Tazobactam IVPB 3.375 grams IVPB once over 60 mins; (mix in NS 100 bp mL) Route: IVPB; Infused Over: 60 mins; Site: Other; 14:27 Follow up: IV Status: Completed infusion bp 12:12 Drug: morphine IVP or IV 4 mg IVP once over 4 mins Route: IVP; Infused Over: 4 mins; ld1 Site: right forearm; 12:22 Follow up: Response: No adverse reaction ld1 12:38 Drug: vancoMYCIN IVPB 1 grams IVPB once over 2 hrs Route: IVPB; Infused Over: 2 hrs; bp Site: right antecubital; 14:27 Follow up: IV Status: Completed infusion bp 13:02 Drug: Insulin Regular Human Sub-Q 10 units Sub-Q once {Co-Signature: ld1 (Gia Peace bp RN).} Route: Sub-Q; Site: right upper arm; 14:27 Follow up: Response: No adverse reaction bp 14:06 Drug: morphine IVP or IV 2 mg IVP once over 4 mins; Verbal order per Souleymane Madrigal Route: ld1 IVP; Infused Over: 4 mins; Site: right forearm; 14:27 Follow up: Response: No adverse reaction bp 14:08 CANCELLED (Other Intervention Used): [id number] mg IVP once la1 Medication: 14:34 VIS not applicable for this client. ld1 Outcome: 12:08 Decision to Hospitalize by Provider. rn 14:34 Admitted to ICU accompanied by nurse, via stretcher, room 2, ld1 14:34 Condition: stable 14:34 Instructed on the need for admit, 14:34 Patient left the ED. ld1 Signatures: Dispatcher [employer] EDMS Jose A Pearson MD MD rn Peltier, Brian RN Gia Chappell RN RN ld1 Souleymane Madrigal-[facility] Gia Peace RN1
[2024-09-22 12:18] LABS: Absolute Lymphocytes (CBC) 0.3 K/uL (0.7-4.9); Absolute Neutrophil 14.7 K/uL (1.8-8.0); Basophils % 0.2 % (0-1.3); Eosinophils % 0.2 % (0-4.4); Hemoglobin 15.3 g/dL (13.6-17.9); Lymphocytes % 1.8 % (15.3-44.8); MCH 29.9 pg (27.0-35.0); MCHC 34.8 g/dL (32.0-36.0); MCV 85.8 fL (80-100); MPV 9.5 fL (7.6-11.3); Monocytes % 0.3 % (3.3-12.3); Neutrophils % 97.5 % (41.7-73.7); Nucleated Red Blood Cells % 0.1 % (0-0); Platelets 190 thou/uL (152-406); RBC Red Blood Cell Count 5.13 M/uL (4.33-5.43); Red Cell Distribution Width 13.8 % (12.1-15.2)
[2024-09-22 12:20] LABS: PT Prothrombin Time 13.1 SECONDS (9.4-12.5); PTT, Activated Partial Thromb 25.9 SECONDS (24.3-36.9); Protime INR 1.25
[2024-09-22] MEDS ORDERED: VANCOMYCIN 1 GM/VIAL ONE (12:26)
[2024-09-22] MEDS ORDERED: NA CHLORIDE 0.9% 250 ML ONE (12:26)
[2024-09-22 12:35] LABS: Albumin 1.7 g/dL (3.4-5.0); Albumin/Globulin Ratio 0.4 (1.1-1.8); Anion Gap 12.3 mEq/L (5.0-15.0); Bilirubin Total 1.2 mg/dL (0.2-1.0); Globulin 4.5 g/dL (2.3-3.5); Potassium 3.3 mEq/L (3.5-5.1); Protein, Total 6.2 g/dL (6.4-8.2)
[2024-09-22 12:51] LABS: Band Neutrophils 10 % (0-1); Differential Total Cells Count 100; Lymphocytes 3 % (15-42); Metamyelocytes 1 % (0-0); Monocytes 1 % (0-10); Myelocytes 1 % (0-0); Segmented Neutrophils 84 % (40-80)
[2024-09-22 12:52] LABS: Blood Morphology Comment NOT SEEN (NOT SEEN); Dohle Bodies PRESENT; Platelet Estimate ADEQ; Platelets Clumped FEW PRESENT; Toxic Granulation 1+
[2024-09-22] MEDS ORDERED: INSULIN REGULAR (HUMAN) 100 UNIT/ML ONE (13:01)
[2024-09-22] MEDS ORDERED: MORPHINE 2 MG/ML SYR ONE (14:03)
[2024-09-22] MEDS ORDERED: ALBUTEROL 2.5 MG/3 ML NEB SOL NEB PRN (14:43)
[2024-09-22] MEDS ORDERED: D10W 125 ML IV PRN (14:49)
[2024-09-22] MEDS ORDERED: GLUCAGON 1 MG/VIAL IM PRN (14:49)
[2024-09-22 14:54] LABS: Arterial Blood Carboxyhemoglob 1.2 % (0-1.5); Blood Gas Oxyhemoglobin 89.5 % (94-97); Blood O2 Saturation 92.1 % (92-98.5)
[2024-09-22 14:55] LABS: Blood Gas THB 15.8 g/dl (12-18)
[2024-09-22] MEDS: MORPHINE 2 MG/ML SYR IV PRN (14:57)
[2024-09-22] MEDS: LORazepam 2 MG/ML VIAL IV PRN ×2 (14:57→21:43)
[2024-09-22] MEDS: ENOXAPARIN 40 MG/0.4 ML SQ SCH (15:11)
[2024-09-22] MEDS: NA CHLORIDE 0.9% 1,000 ML IV SCH (15:11)
[2024-09-22] MEDS: VANCOMYCIN 1.75 GM in NA CHLORIDE 0.9% 500 ML IVPB ONE (15:12)
[2024-09-22] MEDS: FLU (Fluarix Triv) TS24-25(6MOS UP)/PF 45 MCG/0.5 ML Syringe IM ONE (15:13)
[2024-09-22] MEDS: PNEUMOCOCCAL VACCINE 0.5 ML IMVAC ONE (15:13)
[2024-09-22] MEDS: NA CHLORIDE 0.9% 500 ML ONE (15:25)
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
[2024-09-22] MEDS: INSULIN REGULAR (HUMAN) 100 UNIT/ML ONE (15:48)
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
[2024-09-22] MEDS ORDERED: DEXMEDETOMIDINE HCL 200 MCG in NA CHLORIDE 0.9% 98 ML IV SCH (16:00)
[2024-09-22] MEDS: FUROSEMIDE 20 MG/ 2ML VIAL IV ONE (16:01)
[2024-09-22] MEDS: INSULIN REGULAR (HUMAN) 100 UNIT/ML SQ SCH (16:03)
[2024-09-22] MEDS: DEXMEDETOMIDINE HCL 1,000 MCG in NA CHLORIDE 0.9% 490 ML IV SCH (16:04)
[2024-09-22] MEDS: propofoL 1,000 MG/100 ML VIAL IV ONE (16:36)
[2024-09-22] MEDS: ONDANSETRON 4 MG/2 ML VIAL ONE (16:50)
--- NOTE | 2024-09-22 17:05 | P.PN ---
Date of Service: 09/22/24 Called to ICU bed 2 for intubation, patient declined and concern for respiratory failure. Intubated using etomidate and succinylcholine, single attempt, 8.0 ETT, 23 cm at teeth, MAC4 blade. Good color change and bilateral equal breath sounds. 97% O2 post intubation. CXR ordered to verify tube position.
[2024-09-22] MEDS: propofoL 1,000 MG/100 ML VIAL IV SCH (17:19)
[2024-09-22] MEDS: ONDANSETRON 4 MG/2 ML VIAL IV PRN (17:21)
--- NOTE | 2024-09-22 17:39 | RAD REPORT ---
EXAM: Chest Single View HISTORY: intubation COMPARISON: Same-day chest x-ray and CT FINDINGS: Interval intubation with endotracheal tube located approximately 4 cm above the sheba at the lower m argin of the clavicular heads in satisfactory position. Similar airspace disease throughout the right lung. Enteric tube in the stomach in satisfactory position. IMPRESSION: Endotracheal tube and enteric tube in satisfactory position.
[2024-09-22] MEDS: FENTANYL CITR 100 MCG/2 ML IV PRN ×2 (18:34→20:57)
[2024-09-22] MEDS: Mupirocin NASAL 2 APPL/1 GM TUBE NAS SCH (20:57)
[2024-09-22] MEDS: FAMOTIDINE 20 MG/2 ML VIAL IV SCH (20:57)
[2024-09-22] MEDS: VANCOMYCIN 2 GM in NA CHLORIDE 0.9% 500 ML IVPB SCH (23:57)
[2024-09-23 05:39] LABS: Absolute Lymphocytes (CBC) 0.9 K/uL (0.7-4.9); Absolute Monocytes 1.1 K/uL (0.1-1.3); Absolute Neutrophil 17.8 K/uL (1.8-8.0); Basophils % 0.2 % (0-1.3); Hematocrit 39.7 % (39.6-49.0); Hemoglobin 13.9 g/dL (13.6-17.9); Lymphocytes % 4.5 % (15.3-44.8); MCH 29.7 pg (27.0-35.0); MCHC 35.1 g/dL (32.0-36.0); MCV 84.9 fL (80-100); MPV 9.3 fL (7.6-11.3); Monocytes % 5.6 % (3.3-12.3); Neutrophils % 89.7 % (41.7-73.7); Platelets 185 thou/uL (152-406); RBC Red Blood Cell Count 4.68 M/uL (4.33-5.43); Red Cell Distribution Width 13.6 % (12.1-15.2)
[2024-09-23 05:56] LABS: Albumin 1.4 g/dL (3.4-5.0); Albumin/Globulin Ratio 0.3 (1.1-1.8); Anion Gap 11.6 mEq/L (5.0-15.0); Bilirubin Total 1.2 mg/dL (0.2-1.0); Globulin 4.2 g/dL (2.3-3.5); Magnesium 1.9 mg/dL (1.6-2.4); Phosphorus 2.4 mg/dL (2.5-4.9); Potassium 3.6 mEq/L (3.5-5.1); Protein, Total 5.6 g/dL (6.4-8.2); Thyroid Stimulating Hormone 0.246 uIU/mL (0.358-3.740)
[2024-09-23] MEDS: POTASSIUM PHOS IN 0.9 % NACL 15 MMOL/250 ML BAG IV ONE (06:20)
--- NOTE | 2024-09-23 06:43 | RAD REPORT ---
PROCEDURE: XR Chest, 1 View CLINICAL INDICATION: The patient is 54 years old and is Male; PICC Placement TECHNIQUE: Frontal view of the chest. COMPARISON: No pertinent prior images available for comparison at time of dictation FINDINGS: LUNGS: Near complete opacification of the right hemithorax with some residual aeration of lungs dem onstrated in the central right upper and midlung. Appearance favors a large right-sided pleural effusion with superimposed atelectasis of the right lung, though cannot exclude a superimposed infect ious process. Left lung remains well-aerated and clear. PLEURAL SPACE: See above. No appreciable pneumothorax. MEDIASTINUM: Otherwise unremarkable cardiomediastinal contours, allowing for technique and positionin g. No mediastinal shift. BONES/JOINTS: No acute osseous abnormality. TUBES, LINES AND DEVICES: Right upper extremity PICC tip terminates in the SVC. Enteric tube tip and side hole terminate in the stomach. The endotracheal tube (ETT) is in satisfactory position with tip 5.7 cm above the sheba. IMPRESSION: 1. Near complete opacification of the right hemithorax with some residual aeration of lungs demonst rated in the central right upper and midlung. Appearance favors a large right-sided pleural effusion with superimposed atelectasis of the right lung, though cannot exclude a superimposed infect ious process. 2. Support devices as above. Recommend further evaluation by bronchoscopy or follow-up contrast-enhanced chest CT to exclude an ob structive right hilar mass or inflammatory process. Electronically signed by: Chago Chapin MD 09/23/2024 06:33 AM [facility] Due to temporary technical issues with the [employer] reporting system, reports are being bradley d by the in-house radiologist without review as a courtesy to ensure prompt reporting the interpreting radiologist is fully responsible for the content of the report. Transcribed Date/Time: 09/23/2024 6:43 AM
--- NOTE | 2024-09-23 07:47 | RAD REPORT ---
Procedure: Chest Single View HISTORY: Respiratory failure COMPARISON: September 22, 2024 FINDINGS: Endotracheal tube with its tip 1.7 cm above the top of the aortic arch. Nasogastric tube within stomach. Complete opacification right hemithorax with mild volume loss The lungs appear clear of acute infiltrate. No significant pleural effusion noted. The heart is borderline enlarged.. PICC line in place IMPRESSION: Complete opacification right hemithorax with mild volume loss unchanged. This probably represents a p neumonia with a component of atelectasis.
[2024-09-23] MEDS: NA CHLORIDE 0.9% 1,000 ML IV SCH (07:57)
[2024-09-23] MEDS: CEFEPIME 2 GM in NA CHLORIDE 0.9% 100 ML IV SCH (07:57)
[2024-09-23] MEDS: INSULIN GLARGINE 100 UNIT/ML SQ SCH (07:58)
[2024-09-23] MEDS: ACETAMINOPHEN 325 MG TABLET FT PRN (08:00)
[2024-09-23] MEDS ORDERED: CEFTRIAXONE 1,000 MG in NA CHLORIDE 0.9% 50 ML IVPB SCH (09:00)
[2024-09-23 09:29] LABS: Band Neutrophils 12 % (0-1); Differential Total Cells Count 100; Lymphocytes 6 % (15-42); Metamyelocytes 1 % (0-0); Monocytes 4 % (0-10); Myelocytes 1 % (0-0); Segmented Neutrophils 76 % (40-80); Toxic Granulation 1+
[2024-09-23 09:30] LABS: Blood Morphology Comment NOT SEEN (NOT SEEN); Dohle Bodies PRESENT; Platelet Estimate ADEQ
[2024-09-23 10:45] LABS: Specific Gravity 1.024 (1.005-1.030); Sqamous Epithelial None Seen /HPF (None Seen); Urine Bacteria <20 /HPF (<20); Urine Bilirubin 1+ (Negative); Urine Blood 3+ (Negative); Urine Clarity Extremely Turbid (Clear); Urine Color Dark-Orange (Yellow); Urine Culture Reflex Order NOT NEEDED; Urine Glucose 1+ (Negative); Urine Ketones 1+ (Negative); Urine Micro Reflex YN NO BILL MICROSCOPIC; Urine Mucus Slight /HPF (None Seen); Urine Nitrite NEGATIVE (Negative); Urine Protein 2+ (Negative); Urine RBC >50 /HPF (None Seen); Urine Urobilinogen 2+ (Normal)
--- NOTE | 2024-09-23 12:16 | P.PN ---
Date of Service: 09/23/24 Subjective: Intubated 09/22/2024 for impending respiratory failure No acute events overnight ROS: 10 point ROS as noted above, otherwise negative Physical exam GEN: Sedated on ventilator HEENT: Normal conjunctiva, sclera anicteric CV: Sinus tach around 110, no edema Pulm: On ventilator, breath sounds on the right diminished with Rales ABD: Soft, nontender, nondistended, Agrawal catheter in place, OGT in place MSK: No joint tenderness Integumentary: No rashes Neuro: Normal speech, normal affect Vitals reviewed Assessment: Acute hypoxic respiratory failure secondary to right-sided pneumonia Severe sepsis secondary to right-sided pneumonia Metabolic encephalopathy secondary to above diabetes mellitus type 2 with hyperglycemia Pseudohyponatremia Cocaine abuse Plan: Acute hypoxic respiratory failure secondary to right-sided pneumonia Severe sepsis secondary to right-sided pneumonia Metabolic encephalopathy secondary to above Admitted 09/22 for impending respiratory failure NOACs broadened to vancomycin/cefepime from Rocephin/vancomycin on 2/3 AM Blood cultures obtained, lactate downtrending Event as tolerated Pulmonology consulted and following Ventilator protocol in place PICC line in place Diabetes mellitus type 2 with hyperglycemia Pseudohyponatremia Patient currently reportedly is homeless Does not have any medications to take at home Every 6 hours Accu-Chek, sliding scale Cocaine abuse Will need to legal counsel on cessation when more alert/oriented DVT PPX: Lovenox Code status: Full Discharge Plan: Home Plan to discharge in: Greater than 2 days Time Spent Managing Pts Care (In Minutes): 35
[2024-09-23] MEDS ORDERED: ETOMIDATE 20 MG/10 ML VIAL IV ONE (14:19)
[2024-09-23] MEDS ORDERED: SUCCINYLCHOLINE 20 MG/ML (10 ML) IV ONE (14:19)
[2024-09-23] MEDS ORDERED: VITAL HP 1,000 ML BOT RTH SCH (15:00)
--- NOTE | 2024-09-23 17:31 | RAD REPORT ---
EXAMINATION: US RETROPERITONEUM CLINICAL INDICATION: nino TECHNIQUE: Real-time ultrasonography of the abdomen was performed. COMPARISON: No prior exam. FINDINGS: RIGHT KIDNEY: Right renal length measurement: 12 cm. Normal in echogenicity and size. No calculus, so lid mass or hydronephrosis. LEFT KIDNEY: Left renal length measurement: 12.1 cm. No hydronephrosis. Suboptimally visualized. ADDITIONAL FINDINGS: Nonvisualized bladder, reportedly decompressed by Agrawal catheter. IMPRESSION: Negative for hydronephrosis. Unremarkable right kidney. Left kidney was suboptimally visualized.
[2024-09-24 06:02] LABS: Absolute Lymphocytes (CBC) 0.7 K/uL (0.7-4.9); Absolute Monocytes 1.4 K/uL (0.1-1.3); Absolute Neutrophil 24.1 K/uL (1.8-8.0); Basophils % 0.2 % (0-1.3); Hematocrit 40.2 % (39.6-49.0); Hemoglobin 13.4 g/dL (13.6-17.9); Lymphocytes % 2.7 % (15.3-44.8); MCHC 33.3 g/dL (32.0-36.0); MCV 87.1 fL (80-100); Monocytes % 5.4 % (3.3-12.3); Neutrophils % 91.7 % (41.7-73.7); Nucleated Red Blood Cells % 0.1 % (0-0); Platelets 240 thou/uL (152-406); RBC Red Blood Cell Count 4.61 M/uL (4.33-5.43); Red Cell Distribution Width 14.2 % (12.1-15.2)
[2024-09-24 06:15] LABS: AST/SGOT 20 U/L (15-37); Albumin 1.2 g/dL (3.4-5.0); Albumin/Globulin Ratio 0.3 (1.1-1.8); Alkaline Phosphatase 137 U/L (45-117); Anion Gap 8.5 mEq/L (5.0-15.0); BUN Blood Urea Nitrogen 42 mg/dL (7-18); Bicarbonate 26 mEq/L (21-32); Bilirubin Total 1.2 mg/dL (0.2-1.0); Creatine Phosphokinase 38 U/L (39-308); Globulin 4.7 g/dL (2.3-3.5); Glomerular Filtration Rate 44 ml/min (=/>90); Glucose Level 264 mg/dL (74-106); Magnesium 2.5 mg/dL (1.6-2.4); Phosphorus 3.7 mg/dL (2.5-4.9); Potassium 3.5 mEq/L (3.5-5.1); Protein, Total 5.9 g/dL (6.4-8.2); Sodium Level 137 mEq/L (136-145)
[2024-09-24 06:20] LABS: ALT/SGPT < 14 U/L (16-61)
[2024-09-24] MEDS: KCL 20 MEQ/100 mL IVPB 20 MEQ/100 ML BAG IV SCH (06:44)
--- NOTE | 2024-09-24 07:30 | P.PN ---
Date of Service: 09/24/24 Subjective: Sedated on the Mechanical ventilator, FiO2 50% WBC elevated from yesterday Remains tachycardic adjusting insulin for hyperglycemia ROS: 10 point ROS as noted above, otherwise negative Physical exam GEN: Sedated on ventilator, unresponsive HEENT: Normal conjunctiva, sclera anicteric CV: Sinus tach around 93, no edema Pulm: On ventilator, breath sounds on the right diminished with Rales ABD: Soft and ND/NT on palpation, Agrawal catheter in place, OGT in place MSK: No joint tenderness Integumentary: No rashes Neuro: Normal speech, normal affect Vitals reviewed Assessment: Acute hypoxic respiratory failure secondary to right-sided pneumonia Severe sepsis secondary to right-sided pneumonia Metabolic encephalopathy secondary to above diabetes mellitus type 2 with hyperglycemia Pseudohyponatremia Cocaine abuse Plan: Acute hypoxic respiratory failure secondary to right-sided pneumonia Severe sepsis secondary to right-sided pneumonia Metabolic encephalopathy secondary to above Admitted 09/22 for impending respiratory failure NOACs broadened to vancomycin/cefepime from Rocephin/vancomycin on 2/3 AM Blood cultures Strep pneumoniae , lactate downtrending Event as tolerated Pulmonology consulted and following Ventilator protocol in place PICC line in place Diabetes mellitus type 2 with hyperglycemia Pseudohyponatremia Patient currently reportedly is homeless Does not have any medications to take at home Every 6 hours Accu-Chek, sliding scale Cocaine abuse Will need to summer counselor on cessation when more alert/oriented DVT PPX: Lovenox Code status: Full Discharge Plan: Home Plan to discharge in: Greater than 2 days
--- NOTE | 2024-09-24 08:08 | P.PN ---
Subjective Date of Service: 09/24/24 Chief Complaint: Severe sepsis, pneumonia No change in patient's condition is currently stable on propofol hemodynamically stable Review of Systems is unable to be obtained Physical Examination - Vital Signs Temperature: 98.9 F Blood Pressure: 129/63 Pulse: 105 Respirations: 22 Pulse Ox (%): 93 - Physical Exam General: Unresponsive Respiratory: Clear to auscultation bilaterally Cardiovascular: No edema, Regular rate/rhythm, Normal S1 S2 Gastrointestinal: Normal bowel sounds, Soft and benign Assessment And Plan - Current Problems (Diagnosis) (1) Pneumonia Current Visit: Yes Status: Acute Plan: Patient admitted with pneumonia is currently on a ventilator extensive right side opacification renal function is worse white count elevated patient tested positive for cocaine hyperglycemic increase insulin patient is tube fed chest x- ray reviewed endotracheal tube satisfactory position FiO2 50% Qualifiers: Pneumonia type: due to unspecified organism Laterality: right
[2024-09-24] MEDS: INSULIN GLARGINE 100 UNIT/ML SQ SCH (08:20)
--- NOTE | 2024-09-24 08:26 | RAD REPORT ---
EXAMINATION: ONE VIEW CHEST XR CLINICAL INDICATION: Male, 54 years old.,Respiratory failure, pneumonia TECHNIQUE: Frontal chest projection is submitted. Examination is limited by patient positioning and t echnique. COMPARISON: 09/23/2024 FINDINGS: Endotracheal tube and enteric tube unchanged in position. Right peripheral predominant pleural-parenc hymal opacification, appears stable allowing for differences in technique. Overall decreased inspiratory effort limits evaluation. The left lung is clear allowing for this.. No pneumothorax or left sizable effusion. The heart is normal in size. Mediastinal contours are unremarkable. IMPRESSION: Stable right peripheral predominant pleural-parenchymal opacification throughout the lung, suggesting atelectasis or pneumonia probably with a component of effusion.
[2024-09-24] MEDS: VANCOMYCIN 2 GM in NA CHLORIDE 0.9% 500 ML IVPB SCH (08:44)
--- NOTE | 2024-09-24 12:19 | EKG ---
Test Date: 2024-09-22 Test Time: 10:03:58 [employer]: [employer] [facility] MEASUREMENT RESULTS: Intervals: Rate: 126 MO: 128 QRSD: 80 QT: 340 QTc: 492 [place]: P: 37 MO: 128 QRS: 17 T: -26 INTERPRETIVE STATEMENTS: Atrial fibrillation Voltage criteria for left ventricular hypertrophy Inferior infarct, age undetermined Abnormal ECG Compared to ECG 02/05/2003 20:31:00 Left ventricular hypertrophy now present Myocardial infarct finding now present Sinus rhythm no longer present ST (T wave) deviation no longer present Prolonged QT interval no longer present Electronically Signed On 09-24-24 12:16:10 SAFETY SCIENTIST by Anthony Leon
[2024-09-25 05:45] LABS: Absolute Basophils 0.1 K/uL (0-0.5); Absolute Monocytes 1.4 K/uL (0.1-1.3); Basophils % 0.2 % (0-1.3); Hematocrit 41.5 % (39.6-49.0); Hemoglobin 13.7 g/dL (13.6-17.9); MCH 29.2 pg (27.0-35.0); MCHC 33.1 g/dL (32.0-36.0); MCV 88.4 fL (80-100); MPV 8.7 fL (7.6-11.3); Monocytes % 5.8 % (3.3-12.3); Nucleated Red Blood Cells % 0.1 % (0-0); Platelets 243 thou/uL (152-406); Red Cell Distribution Width 14.2 % (12.1-15.2)
[2024-09-25 05:57] LABS: Albumin 1.2 g/dL (3.4-5.0); Albumin/Globulin Ratio 0.2 (1.1-1.8); Anion Gap 8.1 mEq/L (5.0-15.0); Bilirubin Total 0.8 mg/dL (0.2-1.0); Globulin 5.2 g/dL (2.3-3.5); Magnesium 2.7 mg/dL (1.6-2.4); Phosphorus 3.1 mg/dL (2.5-4.9); Potassium 4.1 mEq/L (3.5-5.1); Protein, Total 6.4 g/dL (6.4-8.2)
--- NOTE | 2024-09-25 07:47 | RAD REPORT ---
EXAMINATION: ONE VIEW CHEST XR CLINICAL INDICATION: Respiratory failure, pneumonia TECHNIQUE: Frontal chest projection is submitted. Examination is limited by patient positioning and t echnique. COMPARISON: 09/24/2024 FINDINGS: ET tube tip is above the sheba. Right-sided PICC line tip is in the SVC, unchanged. Enteric tube tip descends in the upper abdomen, not fully included on the radiograph. Bilateral pulmonary opacities are again seen, greater on the right, mildly improved since comparison study. The heart is mildly enl arged in size.
[2024-09-25] MEDS: DEXMEDETOMIDINE HCL 1,000 MCG in NA CHLORIDE 0.9% 490 ML IV SCH (08:43)
--- NOTE | 2024-09-25 09:50 | P.PN ---
Subjective Date of Service: 09/25/24 Chief Complaint: Severe sepsis, pneumonia Condition stable patient is on propofol requirement less than 50% Review of Systems is unable to be obtained Physical Examination - Vital Signs Temperature: 99.1 F Blood Pressure: 171/87 Pulse: 116 Respirations: 20 Pulse Ox (%): 91 - Physical Exam General: Unresponsive Respiratory: Crackles/rales (Because on the right side), Expiratory wheezes Cardiovascular: No edema, Regular rate/rhythm Assessment And Plan - Current Problems (Diagnosis) (1) Pneumonia Current Visit: Yes Status: Acute Plan: Patient admitted with severe community-acquired pneumonia is on a ventilator so far negative count declining renal function stable x-ray reviewed still has haziness on the right side may have underlying pleural effusion ReSound of chest no change in IV antibiotics Precedex wean off propofol Qualifiers: Pneumonia type: due to unspecified organism Laterality: right
[2024-09-25] MEDS: LABETALOL 20 MG/4ML SYRINGE IV PRN (10:34)
[2024-09-25 12:13] LABS: Atypical Lymphocytes 1 %; Band Neutrophils 4 % (0-1); Blood Morphology Comment NOT SEEN (NOT SEEN); Differential Total Cells Count 100; Lymphocytes 4 % (15-42); Metamyelocytes 2 % (0-0); Monocytes 6 % (0-10); Myelocytes 1 % (0-0); Platelet Estimate ADEQ; Segmented Neutrophils 82 % (40-80); Toxic Granulation 1+
--- NOTE | 2024-09-25 14:23 | P.PN ---
Subjective Date of Service: 09/25/24 Chief Complaint: Severe sepsis, pneumonia Patient remained intubated ventilation. He is sedated with propofol. Blood pressure elevated and tachycardic. Physical Examination - Vital Signs Temperature: 101.2 F Blood Pressure: 112/67 Pulse: 93 Respirations: 19 Pulse Ox (%): 96 Assessment And Plan - Plan Physical examination GEN: Sedated on ventilator HEENT: Normal conjunctiva, sclera anicteric CV: Sinus tachy, no edema, no murmur. Pulm: On ventilator, breath sounds on the right diminished, right-sided crackles. ABD: Soft, nontender, nondistended, Agrawal catheter in place, OGT in place MSK: No joint tenderness Integumentary: No rashes Neuro: Normal speech, normal affect Vitals reviewed Assessment: Acute hypoxic respiratory failure secondary to right-sided pneumonia Severe sepsis secondary to right-sided pneumonia Metabolic encephalopathy secondary to above diabetes mellitus type 2 with hyperglycemia Pseudohyponatremia Cocaine abuse Plan: Acute hypoxic respiratory failure secondary to right-sided pneumonia Severe sepsis secondary to right-sided pneumonia Metabolic encephalopathy secondary to above Continue vancomycin/cefepime. Blood cultures: No growth to date. Sputum culture: Coagulase positive staph. Daily weaning exercises. Pulmonology Dr. Osorio is following. Ventilator protocol in place-consultation with Precedex drip, fentanyl IV as needed. Tube feeding PICC line in place Diabetes mellitus type 2 with hyperglycemia Pseudohyponatremia Patient currently reportedly is homeless Does not have any medications to take at home Every 6 hours Accu-Chek, sliding scale Glucerna for tube feeding. Cocaine abuse Will need to cemetery counselor on cessation when more alert and oriented DVT PPX: Lovenox Code status: Full Discharge Plan: Home
--- NOTE | 2024-09-25 22:39 | RAD REPORT ---
EXAM: US Chest HISTORY: R/o effusion on R side COMPARISON: None TECHNIQUE: Sonographic grayscale and color flow imaging of the right thoracic cavity including the re gion of interest as described by the patient. FINDINGS: Small layering right pleural effusion. No septation or evidence of loculation although poor penetrati on somewhat limits the examination. IMPRESSION: Small right pleural effusion as above.
[2024-09-26 06:13] LABS: Absolute Basophils 0.1 K/uL (0-0.5); Absolute Monocytes 1.7 K/uL (0.1-1.3); Absolute Neutrophil 31.8 K/uL (1.8-8.0); Basophils % 0.2 % (0-1.3); Hematocrit 42.5 % (39.6-49.0); Hemoglobin 13.9 g/dL (13.6-17.9); Lymphocytes % 2.9 % (15.3-44.8); MCH 29.2 pg (27.0-35.0); MCHC 32.8 g/dL (32.0-36.0); MPV 8.9 fL (7.6-11.3); Monocytes % 4.9 % (3.3-12.3); Nucleated Red Blood Cells % 0.1 % (0-0); Platelets 299 thou/uL (152-406); RBC Red Blood Cell Count 4.78 M/uL (4.33-5.43); Red Cell Distribution Width 14.4 % (12.1-15.2)
[2024-09-26 06:28] LABS: Albumin 1.2 g/dL (3.4-5.0); Albumin/Globulin Ratio 0.2 (1.1-1.8); Anion Gap 7.8 mEq/L (5.0-15.0); Bilirubin Total 0.6 mg/dL (0.2-1.0); Globulin 5.4 g/dL (2.3-3.5); Magnesium 2.5 mg/dL (1.6-2.4); Phosphorus 2.5 mg/dL (2.5-4.9); Potassium 4.8 mEq/L (3.5-5.1); Protein, Total 6.6 g/dL (6.4-8.2)
[2024-09-26 09:48] LABS: Band Neutrophils 1 % (0-1); Blood Morphology Comment NOT SEEN (NOT SEEN); Differential Total Cells Count 100; Lymphocytes 10 % (15-42); Metamyelocytes 7 % (0-0); Monocytes 3 % (0-10); Myelocytes 3 % (0-0); Platelet Estimate ADEQ; Platelets, Giant RARE; Segmented Neutrophils 76 % (40-80); Toxic Granulation 2+
[2024-09-26] MEDS: Meropenem 1,000 MG in NA CHLORIDE 0.9% 100 ML IV SCH (10:52)
--- NOTE | 2024-09-26 13:48 | P.PN ---
Subjective Date of Service: 09/26/24 Chief Complaint: Severe sepsis, pneumonia Patient remain intubated ventilation. Has been experiencing fever. He failed spontaneous breathing trial today. Physical Examination - Vital Signs Temperature: 99.1 F Blood Pressure: 134/63 Pulse: 113 Respirations: 24 Pulse Ox (%): 93 Assessment And Plan - Plan Physical examination GEN: Sedated on ventilator HEENT: Normal conjunctiva, sclera anicteric CV: Sinus tachy, no edema, no murmur. Pulm: On ventilator, breath sounds on the right diminished, right-sided crackles. ABD: Soft, nontender, nondistended, Agrawal catheter in place, OGT in place MSK: No joint tenderness Integumentary: No rashes Neuro: Normal speech, normal affect Vitals reviewed Assessment: Acute hypoxic respiratory failure secondary to right-sided pneumonia Severe sepsis secondary to right-sided pneumonia Metabolic encephalopathy secondary to above diabetes mellitus type 2 with hyperglycemia Pseudohyponatremia Cocaine abuse Plan: Acute hypoxic respiratory failure secondary to right-sided pneumonia Severe sepsis secondary to right-sided pneumonia Metabolic encephalopathy secondary to above Leukocytosis trended up significantly compared to yesterday, patient has been experience intermittent fever. IV cefepime replaced with IV meropenem, clindamycin added. Continue vancomycin Blood cultures: No growth to date. Sputum culture: Coagulase positive staph. Final sputum culture results is pending. Daily weaning exercises. Pulmonology Dr. Osorio is following. Ventilator protocol in place-sedation with Precedex drip, fentanyl IV as needed. Continue tube feeding PICC line in place Diabetes mellitus type 2 with hyperglycemia Pseudohyponatremia History of noncompliance with medications. Does not have any medications to take at home Every 6 hours Accu-Chek, sliding scale Glucerna for tube feeding. Cocaine abuse Will need to employee counselor on cessation when more alert and oriented DVT PPX: Lovenox Code status: Full Discharge Plan: Home
[2024-09-26] MEDS: CLINDAMYCIN 900MG/D5W 900 MG/50 ML IVPB IV SCH (14:59)
[2024-09-27 06:14] LABS: Albumin 1.2 g/dL (3.4-5.0); Albumin/Globulin Ratio 0.2 (1.1-1.8); Anion Gap 9.3 mEq/L (5.0-15.0); Bilirubin Total 0.5 mg/dL (0.2-1.0); Globulin 5.3 g/dL (2.3-3.5); Magnesium 2.4 mg/dL (1.6-2.4); Phosphorus 1.8 mg/dL (2.5-4.9); Potassium 4.3 mEq/L (3.5-5.1); Protein, Total 6.5 g/dL (6.4-8.2)
[2024-09-27 06:20] LABS: Hematocrit 40.3 % (39.6-49.0); Hemoglobin 13.3 g/dL (13.6-17.9); MCH 29.4 pg (27.0-35.0); MCHC 33.1 g/dL (32.0-36.0); MCV 88.8 fL (80-100); Platelets 286 thou/uL (152-406); RBC Red Blood Cell Count 4.54 M/uL (4.33-5.43); Red Cell Distribution Width 14.4 % (12.1-15.2)
[2024-09-27] MEDS: INSULIN GLARGINE 100 UNIT/ML SQ SCH (08:21)
[2024-09-27 09:22] LABS: Band Neutrophils 5 % (0-1); Blood Morphology Comment NOTED (NOT SEEN); Differential Total Cells Count 100; Eosinophils 1 % (0-3); Lymphocytes 11 % (15-42); Metamyelocytes 1 % (0-0); Monocytes 7 % (0-10); Platelet Estimate ADEQ; Platelets Clumped NOTED; Segmented Neutrophils 75 % (40-80); Smudge Cells MANY; Spherocyte FEW; Stomatocytes 1+
[2024-09-27] MEDS: D5W 1,000 ML IV SCH (10:10)
[2024-09-27 10:16] LABS: Arterial Blood Carboxyhemoglob 1.2 % (0-1.5); Blood Gas Oxyhemoglobin 87.2 % (94-97); Blood Gas THB 13.9 g/dl (12-18)
--- NOTE | 2024-09-27 15:54 | P.PN ---
Subjective Date of Service: 09/27/24 Chief Complaint: Severe sepsis, pneumonia Patient remain intubated ventilation. He continues to experience intermittent fever. Green-colored sputum suctioned out of the trachea. Physical Examination - Vital Signs Temperature: 100.8 F Blood Pressure: 152/79 Pulse: 111 Respirations: 20 Pulse Ox (%): 100 - Studies Microbiology Data (last 24 hrs): 09/22/24 10:08 Blood - Blood Anaerobic Blood Culture - Final No growth in 5 days. 09/22/24 10:00 Blood - Blood Aerobic Blood Culture - Final No growth in 5 days. 09/22/24 10:00 Blood - Blood Anaerobic Blood Culture - Final No growth in 5 days. Assessment And Plan - Plan Physical examination GEN: Sedated on ventilator CV: Sinus tachycardia, no edema, no murmur. Pulm: On ventilator, breath sounds on the right diminished, right-sided crackles. ABD: Soft, nontender, nondistended, Agrawal catheter in place, OGT in place MSK: No joint tenderness Integumentary: No rashes Neuro: Sedated, patient moves all extremities. Vitals reviewed Assessment: Acute hypoxic respiratory failure secondary to right-sided pneumonia Severe sepsis secondary to right-sided pneumonia Metabolic encephalopathy secondary to above diabetes mellitus type 2 with hyperglycemia Pseudohyponatremia Cocaine abuse Plan: Acute hypoxic respiratory failure secondary to right-sided pneumonia Severe sepsis secondary to right-sided pneumonia Metabolic encephalopathy secondary to above Leukocytosis trended up significantly compared to yesterday, patient has been experience intermittent fever. IV cefepime replaced with IV meropenem Continue vancomycin. Clindamycin discontinued. Blood cultures: No growth to date. Sputum culture: Coagulase positive staph. Final sputum culture results is pending. Daily weaning exercises. Pulmonology Dr. Osorio is following. Ventilator protocol in place-sedation with Precedex drip, fentanyl IV as needed. Continue tube feeding PICC line in place. Infectious diseases following. Diabetes mellitus type 2 with hyperglycemia Pseudohyponatremia History of noncompliance with medications. Does not have any medications to take at home Every 6 hours Accu-Chek, sliding scale Glucerna for tube feeding. Titrate Semglee insulin. Cocaine abuse Will need to marriage counselor minister on cessation when more alert and oriented DVT PPX: Lovenox Code status: Full Discharge Plan: Home
[2024-09-28 05:33] LABS: Absolute Basophils 0.3 K/uL (0-0.5); Absolute Eosinophils 0.2 K/uL (0-0.5); Absolute Lymphocytes (CBC) 1.1 K/uL (0.7-4.9); Absolute Monocytes 0.7 K/uL (0.1-1.3); Absolute Neutrophil 20.3 K/uL (1.8-8.0); Basophils % 1.3 % (0-1.3); Eosinophils % 1.1 % (0-4.4); Hematocrit 39.3 % (39.6-49.0); Hemoglobin 12.5 g/dL (13.6-17.9); Lymphocytes % 4.9 % (15.3-44.8); MCH 28.6 pg (27.0-35.0); MCHC 31.9 g/dL (32.0-36.0); MCV 89.5 fL (80-100); MPV 9.4 fL (7.6-11.3); Monocytes % 3.2 % (3.3-12.3); Neutrophils % 89.5 % (41.7-73.7); Platelets 292 thou/uL (152-406); RBC Red Blood Cell Count 4.39 M/uL (4.33-5.43); Red Cell Distribution Width 14.5 % (12.1-15.2)
[2024-09-28 06:22] LABS: Albumin 1.2 g/dL (3.4-5.0); Albumin/Globulin Ratio 0.2 (1.1-1.8); Anion Gap 5.4 mEq/L (5.0-15.0); Bilirubin Total 0.4 mg/dL (0.2-1.0); Globulin 5.1 g/dL (2.3-3.5); Magnesium 2.3 mg/dL (1.6-2.4); Phosphorus 2.1 mg/dL (2.5-4.9); Potassium 4.4 mEq/L (3.5-5.1); Protein, Total 6.3 g/dL (6.4-8.2)
[2024-09-28] MEDS: INSULIN GLARGINE 100 UNIT/ML SQ SCH (09:00)
[2024-09-28] MEDS: VANCOMYCIN 2 GM in NA CHLORIDE 0.9% 500 ML IVPB SCH (11:00)
--- NOTE | 2024-09-28 11:06 | RAD REPORT ---
EXAM: Chest Single View HISTORY: rpt xray - pnemonia COMPARISON: 09/25/2024 FINDINGS: LUNGS/PLEURA: The degree of consolidation in the right lung has improved from prior though there are still opacities throughout the right lung. Left lung remains clear. MEDIASTINUM: The mediastinal silhouette is within normal limits. CARDIAC: Stable size and configuration. UPPER ABDOMEN: No significant abnormality. BONES: No acute abnormality. LINES/TUBES/OTHER: Endotracheal tube just above the aortic arch in satisfactory position. Enteric tub e below the diaphragm with tip not visualized but likely in the stomach. IMPRESSION: Improving aeration of the right lung. The dense consolidation which was originally seen has continued to resolve though there are still opacities remaining. Support apparatus in satisfactory position.
[2024-09-28] MEDS: SODIUM PHOSPHATE 15 MM in NA CHLORIDE 0.9% 250 ML IV ONE (11:26)
--- NOTE | 2024-09-28 12:55 | P.PN ---
Subjective Date of Service: 09/28/24 Chief Complaint: Severe sepsis, pneumonia Patient remain intubated and on vent Intermittent fever. Patient had 9 beat run of VT. Physical Examination - Vital Signs Temperature: 99.0 F Blood Pressure: 141/77 Pulse: 108 Respirations: 18 Pulse Ox (%): 97 - Studies Microbiology Data (last 24 hrs): 09/22/24 10:08 Blood - Blood Aerobic Blood Culture - Final Strep Pneumoniae 09/22/24 10:08 Blood - Blood Blood Culture Gram Stain - Final 09/22/24 10:08 Blood - Blood Anaerobic Blood Culture - Final No growth in 5 days. 09/22/24 10:00 Blood - Blood Aerobic Blood Culture - Final No growth in 5 days. 09/22/24 10:00 Blood - Blood Anaerobic Blood Culture - Final No growth in 5 days. Assessment And Plan - Plan Physical examination GEN: Sedated on ventilator CV: Sinus tachycardia, no edema, no murmur. Pulm: On ventilator, breath sounds on the right diminished, right-sided cr ackles. ABD: Soft, nontender, nondistended, Agrawal catheter in place, OGT in place MSK: No joint tenderness Integumentary: No rashes Neuro: Sedated, patient moves all extremities. Vitals reviewed Assessment: Acute hypoxic respiratory failure secondary to right-sided pneumonia Severe sepsis secondary to right-sided pneumonia Metabolic encephalopathy secondary to above diabetes mellitus type 2 with hyperglycemia Pseudohyponatremia Cocaine abuse Plan: Acute hypoxic respiratory failure secondary to right-sided pneumonia Severe sepsis secondary to right-sided pneumonia Metabolic encephalopathy secondary to above Leukocytosis improving. IV cefepime replaced with IV meropenem Continue vancomycin and IV meropenem Clindamycin discontinued. Blood cultures: Strep pneumo, Sputum culture: Staph aureus, antibiotic sensitivities pending. Daily weaning exercises. Pulmonology Dr. Osorio is following. Ventilator protocol in place-sedation with Precedex drip, fentanyl IV as needed. Continue tube feeding PICC line in place. Infectious diseases following. Diabetes mellitus type 2 with hyperglycemia Pseudohyponatremia History of noncompliance with medications. Every 6 hours Accu-Chek, sliding scale Glucerna for tube feeding. Titrate Semglee insulin. Cocaine abuse Will need to certified alcohol drug counselor on cessation when more alert and oriented DVT PPX: Lovenox Code status: Full Discharge Plan: Home
[2024-09-28 23:31] LABS: Arterial Blood Carboxyhemoglob 1.4 % (0-1.5); Blood Gas Oxyhemoglobin 89.1 % (94-97); Blood O2 Saturation 92.1 % (92-98.5)
[2024-09-29 05:53] LABS: Absolute Basophils 0.2 K/uL (0-0.5); Absolute Eosinophils 0.1 K/uL (0-0.5); Absolute Lymphocytes (CBC) 1.2 K/uL (0.7-4.9); Absolute Monocytes 0.7 K/uL (0.1-1.3); Absolute Neutrophil 14.6 K/uL (1.8-8.0); Basophils % 1.3 % (0-1.3); Eosinophils % 0.8 % (0-4.4); Hemoglobin 11.9 g/dL (13.6-17.9); Lymphocytes % 6.9 % (15.3-44.8); MCHC 32.9 g/dL (32.0-36.0); MPV 10.1 fL (7.6-11.3); Monocytes % 4.1 % (3.3-12.3); Neutrophils % 86.9 % (41.7-73.7); Nucleated Red Blood Cells % 0.1 % (0-0); Platelets 290 thou/uL (152-406); RBC Red Blood Cell Count 4.09 M/uL (4.33-5.43); Red Cell Distribution Width 14.1 % (12.1-15.2)
[2024-09-29 06:17] LABS: Albumin 1.2 g/dL (3.4-5.0); Albumin/Globulin Ratio 0.2 (1.1-1.8); Anion Gap 7.5 mEq/L (5.0-15.0); Bilirubin Total 0.4 mg/dL (0.2-1.0); Globulin 4.9 g/dL (2.3-3.5); Magnesium 2.3 mg/dL (1.6-2.4); Phosphorus 3.1 mg/dL (2.5-4.9); Potassium 4.5 mEq/L (3.5-5.1); Protein, Total 6.1 g/dL (6.4-8.2)
--- NOTE | 2024-09-29 11:23 | P.PN ---
Subjective Date of Service: 09/29/24 Chief Complaint: Severe sepsis, pneumonia Patient's condition is stable oxygen requirements still less than 50% on propofol agitated Review of Systems is unable to be obtained Physical Examination - Vital Signs Temperature: 99.0 F Blood Pressure: 108/67 Pulse: 101 Respirations: 22 Pulse Ox (%): 100 - Physical Exam General: Unresponsive Respiratory: Clear to auscultation bilaterally Cardiovascular: No edema, Regular rate/rhythm - Studies Microbiology Data (last 24 hrs): 09/22/24 10:08 Blood - Blood Aerobic Blood Culture - Final Strep Pneumoniae 09/22/24 10:08 Blood - Blood Blood Culture Gram Stain - Final 09/22/24 10:08 Blood - Blood Anaerobic Blood Culture - Final No growth in 5 days. Assessment And Plan - Current Problems (Diagnosis) (1) Pneumonia Current Visit: Yes Status: Acute Plan: Admitted with respiratory failure secondary to severe community-acquired pneumonia white count is declining feeding tube feeds oxygen requirement less than 50% chest x-ray showing improvement patient's asked streptococcal pneumonia is pansensitive with present therapy activities are available for staff the medication antibiotics needs to be changed still hypernatremic increase IV fluids climate change risk assessor to dexmedetomidine plan to wean
--- NOTE | 2024-09-29 11:27 | P.PN ---
Subjective Date of Service: 09/29/24 Chief Complaint: Severe sepsis, pneumonia Patient remain intubated and on vent Intermittent fever. Patient had 9 beat run of VT. Patient has been failing weaning trials. Physical Examination - Vital Signs Temperature: 99.0 F Blood Pressure: 108/67 Pulse: 101 Respirations: 22 Pulse Ox (%): 100 - Studies Microbiology Data (last 24 hrs): 09/22/24 10:08 Blood - Blood Aerobic Blood Culture - Final Strep Pneumoniae 09/22/24 10:08 Blood - Blood Blood Culture Gram Stain - Final 09/22/24 10:08 Blood - Blood Anaerobic Blood Culture - Final No growth in 5 days. Assessment And Plan - Plan Physical examination GEN: Sedated on ventilator CV: Sinus tachycardia, no edema, no murmur. Pulm: On ventilator, breath sounds on the right diminished, right-sided crackles. ABD: Soft, nontender, nondistended, Agrawal catheter in place, OGT in place MSK: No joint tenderness Integumentary: No rashes Neuro: Sedated, patient moves all extremities. Vitals reviewed Assessment: Acute hypoxic respiratory failure secondary to right-sided pneumonia Severe sepsis secondary to right-sided pneumonia Metabolic encephalopathy secondary to above diabetes mellitus type 2 with hyperglycemia Pseudohyponatremia Cocaine abuse Plan: Acute hypoxic respiratory failure secondary to right-sided pneumonia Severe sepsis secondary to right-sided pneumonia Metabolic encephalopathy secondary to above Leukocytosis improving. IV cefepime replaced with IV meropenem Continue vancomycin and IV meropenem Patient was on clindamycin for fluid which has been discontinued. Blood cultures: Strep pneumo, Sputum culture: Staph aureus, antibiotic sensitivities pending. Daily weaning exercises. Pulmonology Dr. Osorio is following. Ventilator protocol in place-sedation with Precedex drip, fentanyl IV as needed. Continue tube feeding PICC line in place. Infectious diseases following. Repeat blood culture Diabetes mellitus type 2 with hyperglycemia Pseudohyponatremia History of noncompliance with medications. Every 6 hours Accu-Chek, sliding scale Glucerna for tube feeding. Titrate Semglee insulin. Cocaine abuse Counseling once patient is extubated, awake and stable. DVT PPX: Lovenox Code status: Full Discharge Plan: Home
[2024-09-29] MEDS ORDERED: MORPHINE 4 MG/ML SYR IV PRN (15:27)
[2024-09-30 05:30] LABS: Absolute Basophils 0.2 K/uL (0-0.5); Absolute Eosinophils 0.3 K/uL (0-0.5); Absolute Lymphocytes (CBC) 1.3 K/uL (0.7-4.9); Absolute Monocytes 0.7 K/uL (0.1-1.3); Basophils % 1.4 % (0-1.3); Eosinophils % 2.4 % (0-4.4); Hematocrit 36.7 % (39.6-49.0); Hemoglobin 12.2 g/dL (13.6-17.9); Lymphocytes % 8.8 % (15.3-44.8); MCH 29.3 pg (27.0-35.0); MCHC 33.3 g/dL (32.0-36.0); MCV 87.9 fL (80-100); MPV 10.5 fL (7.6-11.3); Monocytes % 4.6 % (3.3-12.3); Neutrophils % 82.8 % (41.7-73.7); Platelets 329 thou/uL (152-406); RBC Red Blood Cell Count 4.18 M/uL (4.33-5.43); Red Cell Distribution Width 13.7 % (12.1-15.2)
[2024-09-30 05:50] LABS: Albumin 1.4 g/dL (3.4-5.0); Albumin/Globulin Ratio 0.3 (1.1-1.8); Anion Gap 5.5 mEq/L (5.0-15.0); Bilirubin Total 0.4 mg/dL (0.2-1.0); Magnesium 2.4 mg/dL (1.6-2.4); Potassium 4.5 mEq/L (3.5-5.1); Protein, Total 6.4 g/dL (6.4-8.2)
--- NOTE | 2024-09-30 13:42 | P.PN ---
Subjective Date of Service: 09/30/24 Chief Complaint: Severe sepsis, pneumonia Patient patient extubated today to Vapotherm. He is awake and interactive. He is still experiencing intermittent fever. Physical Examination - Vital Signs Temperature: 99.5 F Blood Pressure: 150/76 Pulse: 84 Respirations: 22 Pulse Ox (%): 94 Assessment And Plan - Plan Physical examination GEN: Sedated on ventilator CV: Sinus tachycardia, no edema, no murmur. Pulm: On ventilator, breath sounds on the right diminished, right-sided crackles. ABD: Soft, nontender, nondistended, Agrawal catheter in place, OGT in place MSK: No joint tenderness Integumentary: No rashes Neuro: Sedated, patient moves all extremities. Vitals reviewed Assessment: Acute hypoxic respiratory failure secondary to right-sided pneumonia Severe sepsis secondary to right-sided pneumonia Metabolic encephalopathy secondary to above diabetes mellitus type 2 with hyperglycemia Pseudohyponatremia Cocaine abuse Plan: Acute hypoxic respiratory failure secondary to right-sided pneumonia Severe sepsis secondary to right-sided pneumonia Metabolic encephalopathy secondary to above Leukocytosis continue to improve IV cefepime replaced with IV meropenem Continue vancomycin and IV meropenem Blood cultures: Strep pneumo, Sputum culture: Staph aureus, antibiotic sensitivities pending. Patient successfully extubated to Vapotherm today Pulmonology Dr. Osorio is following. Diet pending swallow evaluation PICC line in place. Infectious diseases following. Repeat blood culture is pending. Diabetes mellitus type 2 with hyperglycemia Pseudohyponatremia History of noncompliance with medications. Insulin sliding scale Titrate Semglee insulin. Cocaine abuse Counseling once patient is stable. DVT PPX: Lovenox Code status: Full Discharge Plan: Home
[2024-09-30 14:17] LABS: C.diff Antigen/Toxin Ag neg : Tox neg (NEG : NEG); CDIFF INTERNAL NEG CONTROL White Background (WHITE BKGD); STOOL CONSISTENCY Liquid/Semi-Solid
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
[2024-09-30] MEDS: FLUMAZENIL 0.1 MG/ML (5 mL VIAL) IV ONE ×2 (16:29→17:35)
--- NOTE | 2024-09-30 17:38 | RAD REPORT ---
EXAM: Chest Single View HISTORY: ett COMPARISON: 09/28/2024 FINDINGS: LUNGS/PLEURA: Widespread interstitial and airspace disease, worsened on the left compared with prior. MEDIASTINUM: The mediastinal silhouette is within normal limits. CARDIAC: The cardiac silhouette is within normal limits. UPPER ABDOMEN: No significant abnormality. BONES: No acute abnormality. LINES/TUBES/OTHER: Endotracheal tube terminates at the lower margin of the clavicular heads in satisf actory position. Enteric tube in the stomach. Right-sided approach PICC with tip overlying the SVC. IMPRESSION: 1. Worsened aeration of lungs which may be secondary to either worsening infection or superimposed ed yan. 2. Support apparatus in satisfactory position.
--- NOTE | 2024-09-30 17:39 | RAD REPORT ---
EXAM: AP view(s) of the abdomen Abdomen 1 View (KUB) HISTORY: OGT COMPARISON: None FINDINGS: Nonobstructive bowel gas pattern.. No suspicious calcifications are seen. No acute osseous abnormality. Other: Enteric tube tip terminates in the stomach. The most proximal side port terminates near the ga stric cardia. Could consider advancing by another 5 cm.. IMPRESSION: Enteric tube tip overlies the stomach with most proximal side-port in the gastric cardia region. Consider advancing by another 5 cm for more optimal positioning. Nonobstructive bowel gas pattern.
--- NOTE | 2024-09-30 18:08 | P.PN ---
Date of Service: 09/30/24 Patient was extubated successfully, hours later patient experienced aggitation, ativan given. Nurse called concerning patient had become unresponsive with no gag reflex to suctioning. On examination, unresponsive to pain, bilateral pupils constrictive nonreactive to light, oxygen saturation remains stable on the bipap, concern for airway protection as patient is unresponsive. Dr. Dodd and Dr. Eduardo made the decision to reintubate. Estuardo alejo was called and Dr. Jose A Pearson intubated at 1648. Patient remains hemodynamically stable at this time.
[2024-09-30] MEDS ORDERED: SUCCINYLCHOLINE 20 MG/ML (10 ML) IV ONE (18:13)
[2024-09-30] MEDS ORDERED: ETOMIDATE 20 MG/10 ML VIAL IV ONE (18:13)
--- NOTE | 2024-09-30 18:22 | P.PN ---
Date of Service: 09/30/24 Called to ICU bed 2 for intubation, patient was extubated today and failed extubation. Intubated using etomidate and succinylcholine, single attempt, 8.0 ETT, 23 cm at teeth, MAC4 blade. Good color change and bilateral equal breath sounds. 96% O2 post intubation. CXR ordered to verify tube position and in good position.
[2024-09-30 18:23] LABS: Arterial Blood Carboxyhemoglob 1.6 % (0-1.5); Blood Gas Oxyhemoglobin 92.9 % (94-97); Blood Gas THB 12.4 g/dl (12-18); Blood O2 Saturation 95.3 % (92-98.5)
[2024-09-30] MEDS: VANCOMYCIN 2 GM in NA CHLORIDE 0.9% 500 ML IVPB SCH (20:41)
[2024-10-01] MEDS: MORPHINE 2 MG/ML SYR IV PRN (00:13)
[2024-10-01 05:05] LABS: Absolute Eosinophils 0.2 K/uL (0-0.5); Absolute Monocytes 0.6 K/uL (0.1-1.3); Eosinophils % 1.3 % (0-4.4); Hemoglobin 11.3 g/dL (13.6-17.9)
[2024-10-01 05:11] LABS: Absolute Basophils 0.1 K/uL (0-0.5); Absolute Lymphocytes (CBC) 1.1 K/uL (0.7-4.9); Absolute Neutrophil 14.7 K/uL (1.8-8.0); Basophils % 0.8 % (0-1.3); Hematocrit 34.1 % (39.6-49.0); Lymphocytes % 6.3 % (15.3-44.8); MCH 29.4 pg (27.0-35.0); MCHC 33.2 g/dL (32.0-36.0); MCV 88.6 fL (80-100); Monocytes % 3.7 % (3.3-12.3); Neutrophils % 87.9 % (41.7-73.7); Platelets 305 thou/uL (152-406); RBC Red Blood Cell Count 3.85 M/uL (4.33-5.43); Red Cell Distribution Width 13.2 % (12.1-15.2)
[2024-10-01 05:12] LABS: Anion Gap 7.2 mEq/L (5.0-15.0); Magnesium 2.3 mg/dL (1.6-2.4); Phosphorus 2.4 mg/dL (2.5-4.9); Potassium 4.2 mEq/L (3.5-5.1)
--- NOTE | 2024-10-01 07:03 | P.PN ---
Date of Service: 10/01/24 Subjective: dmitry melo called yesterday as patient became unresponsive / concern couldn't protect his airway several hours after extubation patient re-intubated and placed on sedation yesterday tube feeds resumed 101.3 fever this morning ROS: unable to obtain Physical Exam: GEN: sedated, on vent CV: Regular rate and rhythm, trace edema Pulm: on vent; 40% FiO2, diminished on right side, right-sided crackles ABD: soft, nondistended Neuro: sedated, on vent Agrawal in place, OGT in place Problem List: Acute hypoxic respiratory failure secondary to right-sided pneumonia Severe sepsis secondary to right-sided pneumonia Metabolic encephalopathy secondary to above SEAN NIDDM2 with hyperglycemia Pseudohyponatremia, improved Cocaine abuse Acute hypoxic respiratory failure secondary to right-sided pneumonia Severe sepsis secondary to right-sided pneumonia Metabolic encephalopathy secondary to above CT chest (09/22): Large areas of consolidative airspace disease in the right lung presumably representing pneumonia. The left lung is clear. CXR (09/28): Improving aeration of the right lung. The dense consolidation which was originally seen has continued to resolve though there are still opacities remaining Sputum cx (09/22): Staph Aureus Blood cx (09/22): Strep Pneumoniae in 1/4 bottles. IV cefepime (09/23-09/26) switched to IV merrem 09/26 continue IV merrem / vanc (09/26-) Repeat Blood cx (09/30): pending ID consulted Dr. Dodd, pulm is following Patient extubated 09/30 to Vapotherm. several hours later, patient become unresponsive with no gag reflex to suctioning. Dmitry alejo called and patient re- intubated CXR (09/30): Worsened aeration of lungs which may be secondary to either worsening infection or superimposed edema. Wean off vent as tolerated. Wean sedation continues with low grade temps, fever. +Leukocytosis worse continue broad spectrum antibiotics repeat CXR today ordered SEAN continue to monitor renal function renal u/s (09/23): No Anna. Unremarkable right kidney. Left kidney suboptimally visualized. Continue IV fluids NIDDM2 with hyperglycemia accu-cheks, SSI History of noncompliance with medications. continue semglee 45u daily. Titrate as needed. VTE: Lovenox Code: Full Continue ICU level of care Pending repeat blood cx, afebrile > 24 hours, off vent. Time Spent Managing Pts Care (In Minutes): 55
[2024-10-01] MEDS: POTASS/SODIUM PHOSPHATE 1 PKT POWD.PACK PO SCH (08:01)
--- NOTE | 2024-10-01 08:15 | RAD REPORT ---
Procedure: Chest Single View HISTORY: Respiratory failure COMPARISON: September 30, 2024 FINDINGS: No significant change in the bilateral pulmonary opacities. Lines and tubes in good position. No significant pleural effusion noted. The heart is normal size. IMPRESSION: No significant change in the bilateral pulmonary opacities which may represent pulmonary edema or pne umonia
[2024-10-01 08:24] LABS: Differential Total Cells Count 100
[2024-10-01 08:25] LABS: Band Neutrophils 3 % (0-1); Blood Morphology Comment NOTED (NOT SEEN); Lymphocytes 8 % (15-42); Monocytes 4 % (0-10); Platelet Estimate ADEQ; Segmented Neutrophils 85 % (40-80); Stomatocytes FEW
--- NOTE | 2024-10-01 12:44 | P.PN ---
Subjective Date of Service: 10/01/24 Chief Complaint: Respiratory failure Patient was reintubated yesterday excessive secretions currently stable running a fever on Precedex Review of Systems is unable to be obtained Physical Examination - Vital Signs Temperature: 101.3 F Blood Pressure: 118/76 Pulse: 77 Respirations: 20 Pulse Ox (%): 99 - Physical Exam General: Unresponsive Respiratory: Clear to auscultation bilaterally, Diminished (Initially on the right side) Cardiovascular: No edema, Regular rate/rhythm, Normal S1 S2 Assessment And Plan - Current Problems (Diagnosis) (1) Pneumonia Current Visit: Yes Status: Acute Plan: Patient has respiratory failure had to be reintubated fever x-ray no significant change of ordered echo blood cultures sputum cultures urine culture and procalcitonin levels oxygenation satisfactory is on 30% pressure control count is also elevated patient is on vancomycin meropenem renal function is improving CT scan of the chest abdomen pelvis ordered Qualifiers: Pneumonia type: due to unspecified organism Laterality: right
--- NOTE | 2024-10-01 16:04 | RAD REPORT ---
EXAM: CT CHEST, ABDOMEN AND PELVIS WITHOUT CONTRAST CLINICAL INDICATION: Male, 54 years old FUO TECHNIQUE: CT chest, abdomen and pelvis was performed, without IV contrast, as per department protoco l. Axial, sagittal and coronal reconstructions were obtained. One or more of the following dose reduction techniques were used: Automated exposure control, adjustment of the mA and/or kV according to the patient size, and/or iterative reconstruction. Unless otherwise specified, incidental findings do not require dedicated imaging follow-up. [id number]. COMPARISON: 09/22/2024 FINDINGS: The lack of intravenous contrast limits the sensitivity of this exam for evaluation of solid visceral organs, vascular structures, and retroperitoneum. Chest: LOWER NECK: Visualized thyroid gland and soft tissues are normal. LUNGS AND AIRWAYS: Endotracheal tube above the sheba. The large area of consolidation in the right u pper lobe has improved from prior however there is now increased right lower lobe consolidation and widespread nodularity that is new.No suspicious and/or stable pulmonary nodules. PLEURA: New small bilateral pleural effusions. MEDIASTINUM AND LYMPH NODES: No mediastinal mass or fluid collection. Normal size mediastinal, hilar, and axillary lymph nodes. THORACIC AORTA: No thoracic aortic aneurysm. PULMONARY ARTERIES: Enlarged main pulmonary arteries could indicate pulmonary artery hypertension. HEART: Normal heart size. Multivessel coronary artery diseaseNo significant pericardial effusion. Abdomen/Pelvis UPPER GI: NG tube in the stomach. LIVER: No significant focal abnormality. GALLBLADDER/BILE DUCTS: Cholelithiasis with gallbladder wall thickening that is nonspecific. The gall bladder is underdistended.? PANCREAS: No mass, ductal dilation, or edwardo-pancreatic fluid. SPLEEN: Unremarkable. ADRENALS: No adrenal masses. KIDNEYS AND URETERS: Mild left-sided hydronephrosis. Left sided perinephric stranding is present.No s uspicious renal mass. ABDOMINAL AORTA AND OTHER VESSELS: Moderate atherosclerotic changes without aortic aneurysm. PERITONEUM: Fat-containing hernias. Mild free fluid. Body wall edema. LYMPH NODES: No pathologic lymphadenopathy. ABDOMINAL WALL: Unremarkable SMALL BOWEL/COLON: Small bowel has normal course and caliber. No colonic wall thickening or pericolon ic inflammatory changes. URINARY BLADDER: Decompressed from a Agrawal catheter. The bladder wall does appear thickened. Gas is p resent within the bladder. REPRODUCTIVE ORGANS: No pathologic process. MUSCULOSKELETAL: Multilevel degenerative changes in the spine. No acute fracture. ADDITIONAL FINDINGS: None. IMPRESSION: 1. Though the initial area of consolidation in the right upper lobe has improved from the initial CT, there is worsened right lower lobe consolidation and new fairly widespread bilateral nodular airspace disease and small bilateral pleural effusions. Some of these findings could be secondary to pulmonary edema as the patient clearly has anasarca. 2. Cholelithiasis with gallbladder wall thickening but with underdistended gallbladder. Cholecystitis considered unlikely but correlate with LFTs. 3. Mild left-sided hydronephrosis and bilateral perinephric stranding. No obstructing stone or mass. The bladder wall is also thickened. Suggest correlation with urinalysis to exclude cystitis and/or pyelonephritis.
[2024-10-01 23:03] LABS: Specific Gravity 1.017 (1.005-1.030); Sqamous Epithelial None Seen /HPF (None Seen); Urine Bacteria <20 /HPF (<20); Urine Bilirubin NEGATIVE (Negative); Urine Blood 3+ (OVER) (Negative); Urine Clarity Extremely Turbid (Clear); Urine Color Yellow (Yellow); Urine Culture Reflex Order NOT NEEDED; Urine Glucose NEGATIVE (Negative); Urine Ketones NEGATIVE (Negative); Urine Micro Reflex YN NO BILL MICROSCOPIC; Urine Mucus Slight /HPF (None Seen); Urine Nitrite NEGATIVE (Negative); Urine Protein 1+ (Negative); Urine RBC >50 /HPF (None Seen); Urine Urobilinogen Normal (Normal); Urine WBC <5 /HPF (<5); Urine Yeast (Budding) Moderate /HPF (None Seen); Urine Yeast with Hyphae Occasional /HPF (None Seen); Urine pH 5.5 (5.0-7.0)
[2024-10-02 05:44] LABS: Absolute Basophils 0.1 K/uL (0-0.5); Absolute Eosinophils 0.2 K/uL (0-0.5); Absolute Lymphocytes (CBC) 1.1 K/uL (0.7-4.9); Absolute Monocytes 0.8 K/uL (0.1-1.3); Absolute Neutrophil 17.1 K/uL (1.8-8.0); Basophils % 0.4 % (0-1.3); Hematocrit 34.1 % (39.6-49.0); Hemoglobin 11.1 g/dL (13.6-17.9); Lymphocytes % 5.6 % (15.3-44.8); MCH 28.9 pg (27.0-35.0); MCHC 32.6 g/dL (32.0-36.0); MCV 88.7 fL (80-100); MPV 10.1 fL (7.6-11.3); Platelets 303 thou/uL (152-406); RBC Red Blood Cell Count 3.84 M/uL (4.33-5.43); Red Cell Distribution Width 13.4 % (12.1-15.2)
[2024-10-02 05:56] LABS: Albumin 1.3 g/dL (3.4-5.0); Albumin/Globulin Ratio 0.3 (1.1-1.8); Anion Gap 8.4 mEq/L (5.0-15.0); Bilirubin Total 0.8 mg/dL (0.2-1.0); Globulin 4.5 g/dL (2.3-3.5); Magnesium 2.4 mg/dL (1.6-2.4); Potassium 4.4 mEq/L (3.5-5.1); Protein, Total 5.8 g/dL (6.4-8.2)
--- NOTE | 2024-10-02 07:47 | RAD REPORT ---
Procedure: Chest Single View HISTORY: Respiratory failure COMPARISON: October 01, 2024 FINDINGS: Mild improvement in the bilateral pulmonary opacities Small bilateral pleural effusions The heart is normal size. NG tube within the stomach. Endotracheal tube with its tip about 5 cm above the top of the aortic arch. PICC line in the SVC
--- NOTE | 2024-10-02 08:26 | P.PN ---
Date of Service: 10/02/24 Subjective: remains sedated on vent Agitated when awake. Restrained. Needing frequent ativan to calm down overnight tolerating tube feeds low grade temps overnight / fever curve seems to be improving ROS: unable to obtain Physical Exam: GEN: sedated, on vent CV: Regular rate and rhythm, trace to 1+ b/l lower extremity edema, and RUE edema Pulm: on vent; diminished on right side, right-sided crackles ABD: soft, nondistended Neuro: sedated, on vent Agrawal in place, OGT in place Problem List: Acute hypoxic respiratory failure secondary to right-sided pneumonia Severe sepsis secondary to right-sided pneumonia Metabolic encephalopathy secondary to above SEAN Possible Fungal UTI NIDDM2 with hyperglycemia Pseudohyponatremia, improved Cocaine abuse Acute hypoxic respiratory failure secondary to right-sided pneumonia Severe sepsis secondary to right-sided pneumonia Metabolic encephalopathy secondary to above CT chest (09/22): Large areas of consolidative airspace disease in the right lung presumably representing pneumonia. The left lung is clear. CXR (09/28): Improving aeration of the right lung. The dense consolidation which was originally seen has continued to resolve though there are still opacities remaining Echo (10/01): 60-65% EF, Normal diastolic function, Dilated inferior vena cava (>2cm) Sputum cx (09/22): Staph Aureus Blood cx (09/22): Strep Pneumoniae in 1/4 bottles. IV cefepime (09/23-09/26) switched to IV merrem 09/26 continue IV merrem / vanc (09/26-) Repeat Blood cx (09/30): NGTD ID consulted Patient extubated 09/30 to Vapotherm. several hours later, patient become unresponsive with no gag reflex to suctioning. Code melo called and patient re- intubated CT chest (10/01): Initial area of consolidation in RUL improved. Worsened RLL consolidations and new fairly widespread bilateral nodular disease, small bilateral pleural effusions repeat CXR today with mild improvement in bilateral opacities Wean off vent as tolerated. Wean sedation continues with low grade temps, fever. +Leukocytosis worse continue broad spectrum antibiotics add diflucan 10/02. EKG obtained 10/02 AM, QTc ~450 SEAN Possible Fungal UTI continue to monitor renal function, Cr slightly uptrending over last week renal u/s (09/23): No [place]. Unremarkable right kidney. Left kidney suboptimally visualized. CT chest/abd/pelvis noted mild left-sided hydronephrosis and bilateral perinephric stranding. bladder wall thickening Previously on IV cefepime (09/23-09/26); Continue IV merrem / vanc (09/26-) to cover pneumonia empirically, and would cover most UTI organisms UA with moderate yeast add diflucan 10/02. EKG obtained 10/02 AM, QTc ~450 nephrology consulted NIDDM2 with hyperglycemia accu-cheks, SSI History of noncompliance with medications. increase semglee from 45u to 50u 10/02 VTE: Lovenox Code: Full Continue ICU level of care Pending repeat blood cx, afebrile > 24 hours, off vent. Time Spent Managing Pts Care (In Minutes): 55
[2024-10-02] MEDS: THIAMINE 200 MG/2 ML INJ IVP SCH (09:11)
--- NOTE | 2024-10-02 10:49 | ECHO ---
HEIGHT: 6 ft 1 in WEIGHT: 243 lb 1.6 oz DATE OF STUDY: 10/02/[address]: Esequiel Dodd MD 2-DIMENSIONAL: YES M.MODE: YES DOPPLER: YES COLOR FLOW: YES TDS: YES PORTABLE: YES DEFINITY: BUBBLE STUDY: DIAGNOSIS: RESPIRATORY FAILURE CARDIAC HISTORY: CATHERIZATION: NO SURGERY: NO PROSTHETIC VALVE: NO PACEMAKER: NO MEASUREMENTS (cm) DIASTOLIC (NORMALS) SYSTOLIC (NORMALS) IVSd 1.0 (0.6-1.2) LA Diam 2.7 (1.9-4.0) LVEF 60-65% LVIDd 2.8 (3.5-5.7) LVIDs 1.8 (2.0-3.5) %FS 36% LVPWd 1.1 (0.6-1.2) Ao Diam 2.5 (2.0-3.7) 2 DIMENSIONAL ASSESSMENT: RIGHT ATRIUM: NORMAL LEFT ATRIUM: NORMAL RIGHT VENTRICLE: NORMAL LEFT VENTRICLE: NORMAL TRICUSPID VALVE: TRACE TRICUSPID REGURGITATION MITRAL VALVE: NORMAL, TRACE MITRAL REGURGITATION PULMONIC VALVE: NORMAL AORTIC VALVE: NORMAL PERICARDIAL EFFUSION: NONE AORTIC ROOT: NORMAL LEFT VENTRICULAR WALL MOTION: NORMAL DOPPLER/COLOR FLOW: NORMAL COMMENTS: 1. NORMAL LEFT VENTRICULAR SYSTOLIC FUNCTION, EJECTION FRACTION 60-65%, NORMAL WALL MOTION 2. NORMAL DIASTOLIC FUNCTION 3. DILATED INFERIOR VENA CAVA (GREATER THAN 2 CENTIMETERS IN DIAMETER) TECHNOLOGIST: SILVIO GARIBAY
[2024-10-02] MEDS ORDERED: FUROSEMIDE 40 MG/4 ML VIAL IV ONE (11:42)
--- NOTE | 2024-10-02 11:43 | EKG ---
Test Date: 2024-10-02 Test Time: 10:38:29 Compressor Station Engineer: MALCOM MEASUREMENT RESULTS: Intervals: Rate: 67 OK: 132 QRSD: 86 QT: 432 QTc: 456 Byron: P: 43 OK: 132 QRS: 70 T: 64 INTERPRETIVE STATEMENTS: Normal sinus rhythm Normal ECG Compared to ECG 09/22/2024 10:03:58 Atrial fibrillation no longer present Left ventricular hypertrophy no longer present Myocardial infarct finding no longer present Electronically Signed On 10-02-24 11:42:50 INSIDE SALES ENGINEER by Anthony Leon
[2024-10-02] MEDS ORDERED: FLUCONAZOLE 100mg IVPB 100 MG/50 ML BAG IV SCH (12:00)
[2024-10-02] MEDS: FLUCONAZOLE 200mg IVPB 200 MG/100 ML BAG IV SCH (12:22)
[2024-10-02] MEDS: FUROSEMIDE 40 MG in NA CHLORIDE 0.9% 50 ML IV ONE (12:23)
[2024-10-02 13:15] LABS: Specific Gravity 1.012 (1.005-1.030); Sqamous Epithelial <5 /HPF (None Seen); Urine Bacteria <20 /HPF (<20); Urine Bilirubin NEGATIVE (Negative); Urine Blood 3+ (OVER) (Negative); Urine Clarity Extremely Turbid (Clear); Urine Color Colorless (Yellow); Urine Culture Reflex Order REFLEXED; Urine Glucose 4+ (Over) (Negative); Urine Ketones NEGATIVE (Negative); Urine Microscopic Reflex YN ORDER UMIC; Urine Mucus Slight /HPF (None Seen); Urine Nitrite NEGATIVE (Negative); Urine Protein TRACE (Negative); Urine RBC >50 /HPF (None Seen); Urine Urobilinogen Normal (Normal); Urine Yeast (Budding) Many /HPF (None Seen); Urine pH 5.5 (5.0-7.0)
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
[2024-10-03 05:33] LABS: Absolute Basophils 0.1 K/uL (0-0.5); Absolute Eosinophils 0.3 K/uL (0-0.5); Absolute Lymphocytes (CBC) 0.9 K/uL (0.7-4.9); Absolute Monocytes 0.6 K/uL (0.1-1.3); Absolute Neutrophil 12.1 K/uL (1.8-8.0); Basophils % 0.4 % (0-1.3); Eosinophils % 2.2 % (0-4.4); Hematocrit 32.7 % (39.6-49.0); Hemoglobin 10.9 g/dL (13.6-17.9); Lymphocytes % 6.4 % (15.3-44.8); MCH 29.5 pg (27.0-35.0); MCHC 33.5 g/dL (32.0-36.0); MCV 87.9 fL (80-100); MPV 10.8 fL (7.6-11.3); Monocytes % 4.3 % (3.3-12.3); Neutrophils % 86.7 % (41.7-73.7); Platelets 318 thou/uL (152-406); RBC Red Blood Cell Count 3.72 M/uL (4.33-5.43); Red Cell Distribution Width 13.5 % (12.1-15.2)
[2024-10-03 05:52] LABS: Anion Gap 7.8 mEq/L (5.0-15.0); Magnesium 2.2 mg/dL (1.6-2.4); Phosphorus 3.5 mg/dL (2.5-4.9); Potassium 3.8 mEq/L (3.5-5.1); Uric Acid 3.7 mg/dL (3.5-7.2)
[2024-10-03] MEDS: KCL 20 MEQ/100 mL IVPB 20 MEQ/100 ML BAG IV SCH (07:00)
--- NOTE | 2024-10-03 07:43 | P.PN ---
Date of Service: 10/03/24 Subjective: on vent FiO2 30%; sedated on precedex Intermittently agitated when awake afebrile last 24 hours no events overnight ROS: unable to fully obtain Physical Exam: GEN: sedated, on vent CV: Regular rate and rhythm, trace to 1+ b/l lower extremity edema, and RUE edema Pulm: on vent; mildly diminished bilaterally, bilateral rhonchi ABD: soft, nondistended Neuro: sedated, on vent Agrawal in place, OGT in place Problem List: Acute hypoxic respiratory failure secondary to right-sided pneumonia Severe sepsis secondary to right-sided pneumonia Metabolic encephalopathy secondary to above SEAN Fungal UTI NIDDM2 with hyperglycemia Pseudohyponatremia, improved Cocaine abuse Acute hypoxic respiratory failure secondary to right-sided pneumonia Severe sepsis secondary to right-sided pneumonia Metabolic encephalopathy secondary to above CT chest (09/22): Large areas of consolidative airspace disease in the right lung presumably representing pneumonia. The left lung is clear. CXR (09/28): Improving aeration of the right lung. The dense consolidation which was originally seen has continued to resolve though there are still opacities remaining Echo (10/01): 60-65% EF, Normal diastolic function, Dilated inferior vena cava (>2cm) Sputum cx (09/22): Staph Aureus Blood cx (09/22): Strep Pneumoniae in 1/4 bottles; repeat cx without growth urine cx (10/02): 3+ yeast IV cefepime (09/23-09/26) switched to IV merrem 09/26 continue IV merrem / vanc (09/26-) continue IV diflucan (10/02-) ID consulted Patient extubated 09/30 to Vapotherm. several hours later, patient become unresponsive with no gag reflex to suctioning. Code blue called and patient re- intubated CT chest (10/01): Initial area of consolidation in RUL improved. Worsened RLL consolidations and new fairly widespread bilateral nodular disease, small bilateral pleural effusions repeat CXR today with mild improvement in bilateral opacities Wean off vent as tolerated. Wean sedation afebrile > 24 hours, leukocytosis improving SEAN Fungal UTI SEAN secondary to toxic ATN/poor perfusion continue to monitor renal function, Cr slightly uptrending over last week renal u/s (09/23): No Shelby. Unremarkable right kidney. Left kidney suboptimally visualized. CT chest/abd/pelvis noted mild left-sided hydronephrosis and bilateral perinephric stranding. bladder wall thickening Previously on IV cefepime (09/23-09/26); Continue IV merrem / vanc (09/26-) to cover pneumonia empirically, and would cover most UTI organisms urine cx (10/02): 3+ yeast continue IV diflucan (10/02-) s/p IV Lasix x1 (10/02) Nephrology consulted creatinine improving NIDDM2 with hyperglycemia accu-cheks, SSI History of noncompliance with medications. increased semglee from 45u to 60u 10/02 VTE: Lovenox Code: Full Continue ICU level of care Pending repeat blood cx, afebrile > 24 hours, off vent. Time Spent Managing Pts Care (In Minutes): 55
[2024-10-03] MEDS ORDERED: INSULIN GLARGINE 100 UNIT/ML SQ SCH (09:00)
[2024-10-03 09:42] LABS: Platelet Estimate ADEQ; Platelets Clumped FEW; White Blood Cell Scan OK (OK)
[2024-10-03 09:43] LABS: Blood Morphology Comment NOT SEEN (NOT SEEN)
[2024-10-03] MEDS: INSULIN GLARGINE 100 UNIT/ML SQ SCH (10:37)
[2024-10-03] MEDS: INSULIN REGULAR (HUMAN) 100 UNIT/ML SQ SCH (11:50)
[2024-10-04 05:49] LABS: Hematocrit 31.2 % (39.6-49.0); Hemoglobin 10.4 g/dL (13.6-17.9); MCH 29.6 pg (27.0-35.0); MCHC 33.2 g/dL (32.0-36.0); MCV 89.1 fL (80-100); MPV 9.9 fL (7.6-11.3); Platelets 318 thou/uL (152-406); Red Cell Distribution Width 13.4 % (12.1-15.2)
[2024-10-04 06:29] LABS: Anion Gap 6.1 mEq/L (5.0-15.0); Magnesium 2.1 mg/dL (1.6-2.4); Phosphorus 3.8 mg/dL (2.5-4.9); Potassium 4.1 mEq/L (3.5-5.1)
--- NOTE | 2024-10-04 06:56 | P.PN ---
Date of Service: 10/04/24 1. Neuro; patient awake and alert at times but currently he is on sedation and difficult to arouse. He is not really following commands at this time. Will continue to wean off the Precedex and will reassess his neurostatus. 2. Pulmonary; patient with hypoxic respiratory failure. Patient may also have developed flash pulmonary edema as he decompensates fairly quickly. Chest x-ray continues to show some improvement. Patient does have some basilar crackles and will continue with diuresing patient. Appreciate pulmonary input. 3. Cardiovascular; patient hemodynamically is stable. He had been on Levophed but is not requiring it at this time. Continue with monitoring his hemodynamics closely. Cardiology has been involved in patient's care. Patient may need repeat echocardiogram to further evaluate cardiac function 4. Nephrology; renal function remains slightly elevated. GFR stage III. Continue with gentle hydration and monitor renal function closely. Patient also with a UTI with a fungal infection. Continue with Diflucan; Will probably need supportive care once he is extubated. 5. Endocrine; patient blood sugars remain elevated and attempting strict blood sugar control with insulin. Patient will require long-acting insulin. Will continue with current management at this time with strict blood sugar control 6. Gastroenterology; continue with NG tube feedings. Continue with PPI. 7. Infectious disease; patient with staph in sputum Code: Full Continue ICU level of care Pending repeat blood cx, Critical care time spent on patient care was 45 minutes
[2024-10-04] MEDS: D5W 1,000 ML IV SCH (08:02)
--- NOTE | 2024-10-04 13:28 | RAD REPORT ---
Procedure: Chest Single View HISTORY: Cough COMPARISON: October 02, 2024 FINDINGS: Endotracheal tube 1.5 cm above the top of the aortic arch. Nasogastric tube in the stomach. PICC line in place. No significant change in the bilateral pulmonary opacities and right lower lobe consolidation. Small bilateral pleural effusions The heart is normal size. IMPRESSION: No significant change in the bilateral pulmonary opacities and right lower lobe consolidation
[2024-10-04 14:03] LABS: Albumin 1.1 g/dL (3.4-5.0); Albumin/Globulin Ratio 0.3 (1.1-1.8); Anion Gap 8.5 mEq/L (5.0-15.0); Bilirubin Total 0.2 mg/dL (0.2-1.0); Globulin 3.7 g/dL (2.3-3.5); Potassium 3.5 mEq/L (3.5-5.1); Protein, Total 4.8 g/dL (6.4-8.2)
[2024-10-04] MEDS: ALBUMIN HUMAN 25% 100 ML IV ONE (17:19)
[2024-10-04] MEDS: CALCIUM GLUCONATE 1 GM IVPB 2 GM/100 ML BAG IV ONE (17:19)
--- NOTE | 2024-10-04 18:33 | P.PN ---
Subjective Date of Service: 10/04/24 Chief Complaint: Respiratory failure No significant change in patient's condition he continues to remain agitated Alice responsive Review of Systems is unable to be obtained Physical Examination - Vital Signs Temperature: 98.6 F Blood Pressure: 118/16 Pulse: 76 Respirations: 18 Pulse Ox (%): 100 - Physical Exam General: Unresponsive Respiratory: Clear to auscultation bilaterally Cardiovascular: No edema, Regular rate/rhythm, Normal S1 S2 Assessment And Plan - Current Problems (Diagnosis) (1) Pneumonia Current Visit: Yes Status: Acute Plan: Patient admitted with pneumonia respiratory failure chest x-ray seems to have improved oxygenation satisfactory on 100% FiO2 leak and plan to wean him off tomorrow off the ventilator patients have also decreased rating tube feeds patient is on dexmedetomidine drip signs stable hyponatremia improved Qualifiers: Pneumonia type: due to unspecified organism Laterality: right
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
[2024-10-05 05:24] LABS: Arterial Blood Carboxyhemoglob 0.9 % (0-1.5); Blood Gas Oxyhemoglobin 94.3 % (94-97); Blood Gas THB 10.8 g/dl (12-18); Blood O2 Saturation 95.9 % (92-98.5)
[2024-10-05 06:10] LABS: Absolute Basophils 0.1 K/uL (0-0.5); Absolute Eosinophils 0.2 K/uL (0-0.5); Absolute Lymphocytes (CBC) 1.3 K/uL (0.7-4.9); Absolute Monocytes 0.8 K/uL (0.1-1.3); Absolute Neutrophil 7.1 K/uL (1.8-8.0); Basophils % 1.2 % (0-1.3); Eosinophils % 2.3 % (0-4.4); Hematocrit 32.7 % (39.6-49.0); Hemoglobin 10.9 g/dL (13.6-17.9); Lymphocytes % 13.4 % (15.3-44.8); MCH 29.6 pg (27.0-35.0); MCHC 33.3 g/dL (32.0-36.0); MCV 88.7 fL (80-100); MPV 9.3 fL (7.6-11.3); Monocytes % 8.8 % (3.3-12.3); Neutrophils % 74.3 % (41.7-73.7); Nucleated Red Blood Cells % 0.1 % (0-0); Platelets 388 thou/uL (152-406); RBC Red Blood Cell Count 3.69 M/uL (4.33-5.43); Red Cell Distribution Width 13.3 % (12.1-15.2)
[2024-10-05 06:16] LABS: PT Prothrombin Time 13.3 SECONDS (9.4-12.5); PTT, Activated Partial Thromb 26.7 SECONDS (24.3-36.9); Protime INR 1.27
[2024-10-05 07:38] LABS: Albumin 1.7 g/dL (3.4-5.0); Albumin/Globulin Ratio 0.4 (1.1-1.8); Bilirubin Direct 0.2 mg/dL (0-0.2); Bilirubin Indirect, Calculated 0.1 mg/dL (0.2-0.8); Bilirubin Total 0.3 mg/dL (0.2-1.0); Globulin 4.6 g/dL (2.3-3.5); Protein, Total 6.3 g/dL (6.4-8.2)
[2024-10-05] MEDS: propofoL 1,000 MG/100 ML VIAL IV ONE (07:59)
[2024-10-05] MEDS: FUROSEMIDE 40 MG/4 ML VIAL ONE (08:35)
[2024-10-05] MEDS: MIDAZOLAM HCL 2 MG/2 ML INJ ONE (08:39)
[2024-10-05] MEDS: MIDAZOLAM HCL 2 MG/2 ML INJ IV ONE (08:39)
[2024-10-05] MEDS: ALBUMIN HUMAN 25% 100 ML IV ONE ×2 (08:43→08:53)
[2024-10-05] MEDS: FUROSEMIDE 40 MG/4 ML VIAL IV ONE (08:52)
[2024-10-05] MEDS: D5W 1,000 ML IV SCH (09:00)
[2024-10-05] MEDS: ALBUMIN HUMAN 25% 12.5 GM, FUROSEMIDE 100 MG in NA CHLORIDE 0.9% 40 ML IV SCH (09:00)
[2024-10-05] MEDS ORDERED: NA CHLORIDE 0.9% IV PRN ×2 (09:23→09:24)
[2024-10-05] MEDS ORDERED: FENTANYL CIT IV PRN ×2 (09:23→09:24)
--- NOTE | 2024-10-05 09:31 | P.PN ---
Date of Service: 10/05/24 INO MARTINEZ was called due to concern for impending cardiac arrest. In brief, patient with pneumonia, intubated, noted to have hypoxia with bradycardia with concern for possible mucous plug versus possible pneumothorax versus possible displaced ET tube. My initial assessment patient with saturations in the 80s, patient was reparalyzed, had some improvement in saturations. Obtained a repeat chest x-ray which showed a high riding ET tube. At this time I attempted ET tube exchange with the bougie. Positive breath sounds present bilaterally after this. Patient noted to have persistent hypoxia afterwards. At this point I decided to remove the replacement ET tube and manually bagged the patient which we eventually obtained saturations in the upper 80s low 90s. Again reparalyzed the patient. I subsequently used a glide scope to reintubate without issue. I reintubated with a 7 and half ET tube with the rigid stylette with direct visualization. Condensation noted in the ET tube, saturations improved to the mid 90s. Repeat x-ray obtained, which I interpreted and showed ET tube approximately 1 cm above the sheba. Given appropriate saturations with positive bilateral breath sounds, I decided to leave the ET tube in its current location. At the time of my departure, patient saturating in the mid 90s, obtaining jael ropriate tidal volumes with appropriate heart rate and blood pressure. Primary physician, Dr. Garza, updated regarding events.
--- NOTE | 2024-10-05 09:35 | RAD REPORT ---
EXAMINATION: ONE VIEW CHEST XR CLINICAL INDICATION: r/o pneumo TECHNIQUE: Frontal chest projection is submitted. Examination is limited by patient positioning and t echnique. COMPARISON: 10/04/2024 FINDINGS: Endotracheal tube tip is above the sheba the level of the superior clavicular heads. Enteric tube ti p descends into the stomach. Mild bilateral pulmonary opacities are present, greater on the right likely pulmonary edema. Small right pleural effusion. Heart is mildly enlarged.
[2024-10-05] MEDS ORDERED: ETOMIDATE 20 MG/10 ML VIAL IV ONE (11:56)
[2024-10-05] MEDS ORDERED: SUCCINYLCHOLINE 20 MG/ML (10 ML) IV ONE (11:56)
--- NOTE | 2024-10-05 14:45 | RAD REPORT ---
EXAM: XR of the abdomen HISTORY: Abdominal pain OGT placement COMPARISON: 09/30/2024 FINDINGS: XR of the abdomen shows a nonspecific, nonobstructive bowel gas pattern. Enteric tube tip i s in the stomach. No suspicious calcifications are seen. The bones are unremarkable. IMPRESSION: Enteric tube tip is in the stomach.
--- NOTE | 2024-10-05 14:46 | RAD REPORT ---
EXAMINATION: ONE VIEW CHEST XR CLINICAL INDICATION: Ventilated TECHNIQUE: Frontal chest projection is submitted. Examination is limited by patient positioning and t echnique. COMPARISON: 10/05/2024 FINDINGS: Enteric tube tip is above the sheba. The tip is 1 cm proximal to the aortic arch. Enteric tube tip i s in the stomach. Right-sided PICC line has tip in the SVC. Mild bilateral pulmonary opacities noted, mildly improved since prior study. The heart is mildly enla rged.
[2024-10-05] MEDS: GLUCERNA 1.5 CAL 1,000 ML BOT FT SCH (19:00)
[2024-10-05 20:34] LABS: Anion Gap 5.1 mEq/L (5.0-15.0); Magnesium 2.2 mg/dL (1.6-2.4); Potassium 3.1 mEq/L (3.5-5.1)
[2024-10-05] MEDS: POTASSIUM 25 MEQ EFFERV TAB PO ONE (21:14)
[2024-10-05] MEDS: KCL 20 MEQ/100 mL IVPB 20 MEQ/100 ML BAG IV SCH (21:14)
--- NOTE | 2024-10-05 22:17 | P.PN ---
Date of Service: 10/05/24 Subjective: Patient had a difficult morning. He became hypoxic while they were suctioning him. Patient dropped his oxygen saturations and INO MARTINEZ was called. ETT was exchanged. Patient oxygenating better. Patient was on propofol. Doing well and following commands on the propofol. Talk to family and addressed their concerns. Appreciate emergency room for their assistance in patient's care. Physical Exam: Vitals: Reviewed GEN: sedated, on vent CV: Regular rate and rhythm, trace to 1+ b/l lower extremity edema, and RUE edema Pulm: on vent; mildly diminished bilaterally, bilateral rhonchi ABD: soft, nondistended Neuro: sedated, on vent Agrawal in place, OGT in place Problem List/Plan: 1. Neuro; patient awake and alert at times but currently he is on sedation and difficult to arouse. He is not really following commands at this time. Will continue to wean off the Precedex and will reassess his neurostatus. 2. Pulmonary; patient with hypoxic respiratory failure. Patient may also have developed flash pulmonary edema as he decompensates fairly quickly. Chest x-ray continues to show some improvement. Patient does have some basilar crackles and will continue with diuresing patient. Appreciate pulmonary input. 3. Cardiovascular; patient hemodynamically is stable. He had been on Levophed but is not requiring it at this time. Continue with monitoring his hemodynamics closely. Cardiology has been involved in patient's care. Patient may need repeat echocardiogram to further evaluate cardiac function 4. Nephrology; renal function remains slightly elevated. GFR stage III. Continue with gentle hydration and monitor renal function closely. Patient also with a UTI with a fungal infection. Continue with Diflucan; Will probably need supportive care once he is extubated. 5. Endocrine; patient blood sugars remain elevated and attempting strict blood sugar control with insulin. Patient will require long-acting insulin. Will continue with current management at this time with strict blood sugar control 6. Gastroenterology; continue with NG tube feedings. Continue with PPI. 7. Infectious disease; patient with staph in sputum Code: Full Continue ICU level of care Pending repeat blood cx, Critical care time spent on patient care was 45 minutes
[2024-10-06 01:41] LABS: Anion Gap 5.8 mEq/L (5.0-15.0); Potassium 3.8 mEq/L (3.5-5.1)
[2024-10-06] MEDS: KCL 20 MEQ/100 mL IVPB 20 MEQ/100 ML BAG IV SCH (02:26)
--- NOTE | 2024-10-06 04:09 | PN ---
Date of Progress Note: 10/05/2024 Chief Complaint: Elevated BUN and creatinine. History: The patient is admitted to ICU. He remains intubated. He has history of diabetes mellitus , hypertension. He was found to have acute kidney injury. The patient has history of diabetes melli tus. Upon admission, kidney function was within normal limits. Then, gradually kidney function decl ined . The patient has history of drug use with cocaine. He has history of pneumonia. Th e patient was found to have bacteremia with Staph aureus and Strep pneumoniae. He is on vancomycin. . Physical Examination: Heart: S1, S2. Abdomen: Soft. Extremities: Trace edema. Impression And Plan: 1. Acute kidney injury due to ATN, questionable complication of endocarditis. Recommend Cardiology e valuation for possible endocarditis. 2. The patient received Lasix for volume control. IV fluids were stopped. Monitored . 3. Hypernatremia. Monitor electrolytes. Continue IV medication. 4. Respiratory failure, pneumonia. Lasix as needed. 5. Septic shock secondary to bacteremia, multiorgan failure with bacteremia. The patient needs to be ruled out for endocarditis. EB/MODL Voice ID: [id number] Report ID: [id number]
[2024-10-06 05:59] LABS: Absolute Eosinophils 0.2 K/uL (0-0.5); Absolute Lymphocytes (CBC) 1.2 K/uL (0.7-4.9); Absolute Monocytes 0.8 K/uL (0.1-1.3); Basophils % 0.2 % (0-1.3); Eosinophils % 1.9 % (0-4.4); Hematocrit 33.2 % (39.6-49.0); Hemoglobin 11.2 g/dL (13.6-17.9); Lymphocytes % 11.8 % (15.3-44.8); MCH 29.3 pg (27.0-35.0); MCHC 33.7 g/dL (32.0-36.0); MCV 86.9 fL (80-100); MPV 8.9 fL (7.6-11.3); Monocytes % 7.5 % (3.3-12.3); Neutrophils % 78.6 % (41.7-73.7); Platelets 422 thou/uL (152-406); RBC Red Blood Cell Count 3.82 M/uL (4.33-5.43)
[2024-10-06 06:30] LABS: Albumin 2.5 g/dL (3.4-5.0); Albumin/Globulin Ratio 0.5 (1.1-1.8); Anion Gap 7.7 mEq/L (5.0-15.0); Bilirubin Total 0.6 mg/dL (0.2-1.0); Globulin 4.9 g/dL (2.3-3.5); Magnesium 2.3 mg/dL (1.6-2.4); Phosphorus 3.8 mg/dL (2.5-4.9); Potassium 3.7 mEq/L (3.5-5.1); Protein, Total 7.4 g/dL (6.4-8.2)
--- NOTE | 2024-10-06 11:12 | P.PN ---
Subjective Date of Service: 10/06/24 Chief Complaint: Respiratory failure Patient is doing much better he was extubated reintubated this is the third time has been intubated last time he developed mucous plug and today he is more alert responsive cooperative minimal oxygen treatment chest x-ray has improved vital signs stable Review of Systems is unable to be obtained Physical Examination - Vital Signs Temperature: 98.2 F Blood Pressure: 113/72 Pulse: 105 Respirations: 15 Pulse Ox (%): 100 - Physical Exam General: Alert, Cooperative Respiratory: Clear to auscultation bilaterally, Diminished Cardiovascular: No edema, Regular rate/rhythm Assessment And Plan - Current Problems (Diagnosis) (1) Pneumonia Current Visit: Yes Status: Acute Plan: Patient's condition is improving this is the third time he had to get intubated he is more alert now responding to commands oxygen requirements have decreased to 25% chest x-ray is improved white count normal no significant change in his renal function patient has 3+ yeast in the urine on Diflucan we will start weaning process again vital signs stable chest x-ray ordered chest x-ray on 215 shows substantial clearing Qualifiers: Pneumonia type: due to unspecified organism Laterality: right
--- NOTE | 2024-10-06 12:06 | RAD REPORT ---
Procedure: Chest Single View HISTORY: Respiratory failure COMPARISON: October 05, 2024 FINDINGS: Lines and tubes in good position. Right lateral mid to lower right lung opacity unchanged. Small right pleural effusion with basilar atelectasis unchanged. Additional right lung opacities appear resolved. Opacity medial mid to lower left lung appears worsened. Small left pleural effusion. Heart is normal size
--- NOTE | 2024-10-06 22:20 | PN ---
Date of Progress Note: 10/06/2024 Chief Complaint: Acute kidney injury. Subjective: The patient is admitted to ICU. He remains intubated and has history of diabetes mellit us and hypertension. He was found to have acute kidney injury. Upon admission, kidney function was within normal limits. Subsequently, kidney function declined when the patient was on diuretics. The patient has pneumonia. Remains intubated. He was found to have bacteremia with Staph aureus and St reptococcus pneumoniae. He is on vancomycin. Review of Systems: Unobtainable. Physical Examination: General: Remains intubated, ventilated. Heart: S1, S2. Abdomen: Soft. Extremities: No edema. Impression And Plan: 1. Acute kidney injury due to acute tubular necrosis. Questionable complications of endocarditis. R ecommend Cardiology evaluation for possible endocarditis. 2. Fluid overload. Lasix drip is stopped today. 3. Hypernatremia. Monitor electrolytes. IV fluids were modified. Sodium level has improved. 4. Respiratory failure, pneumonia. Lasix as needed. 5. Septic shock secondary to bacteremia, multiorgan failure with bacteremia. The patient will need w orkup to rule out endocarditis. EB/MODL Voice ID: [id number] Report ID: [id number]
[2024-10-07 05:04] LABS: Absolute Basophils 0.1 K/uL (0-0.5); Absolute Eosinophils 0.2 K/uL (0-0.5); Absolute Lymphocytes (CBC) 1.3 K/uL (0.7-4.9); Absolute Monocytes 0.6 K/uL (0.1-1.3); Absolute Neutrophil 6.2 K/uL (1.8-8.0); Basophils % 1.4 % (0-1.3); Eosinophils % 2.7 % (0-4.4); Hematocrit 32.2 % (39.6-49.0); Hemoglobin 10.7 g/dL (13.6-17.9); Lymphocytes % 15.5 % (15.3-44.8); MCH 29.3 pg (27.0-35.0); MCHC 33.2 g/dL (32.0-36.0); MCV 88.2 fL (80-100); MPV 9.4 fL (7.6-11.3); Monocytes % 7.3 % (3.3-12.3); Neutrophils % 73.1 % (41.7-73.7); Platelets 398 thou/uL (152-406); RBC Red Blood Cell Count 3.65 M/uL (4.33-5.43); Red Cell Distribution Width 13.6 % (12.1-15.2)
[2024-10-07 05:24] LABS: Albumin 2.3 g/dL (3.4-5.0); Albumin/Globulin Ratio 0.5 (1.1-1.8); Anion Gap 6.5 mEq/L (5.0-15.0); Bilirubin Total 0.5 mg/dL (0.2-1.0); Globulin 4.9 g/dL (2.3-3.5); Magnesium 2.6 mg/dL (1.6-2.4); Phosphorus 4.4 mg/dL (2.5-4.9); Potassium 3.5 mEq/L (3.5-5.1); Protein, Total 7.2 g/dL (6.4-8.2)
--- NOTE | 2024-10-07 07:13 | P.PN ---
Date of Service: 10/07/24 Subjective: no acute events overnight ROS: unable to fully obtain Physical Exam: GEN: sedated, on vent CV: Regular rate and rhythm, trace to 1+ b/l lower extremity edema, and RUE edema Pulm: on vent; mildly diminished bilaterally, bilateral rhonchi ABD: soft, nondistended Neuro: sedated, on vent Agrawal in place, OGT in place Problem List: Acute hypoxic respiratory failure; Multifactorial secondary to right-sided pneumonia and pulmonary edema Severe sepsis secondary to right-sided pneumonia Metabolic encephalopathy secondary to above SEAN Fungal UTI NIDDM2 with hyperglycemia Pseudohyponatremia, improved Cocaine abuse Acute hypoxic respiratory failure; Multifactorial secondary to right-sided pneumonia and pulmonary edema Severe sepsis secondary to right-sided pneumonia Metabolic encephalopathy secondary to above CT chest (09/22): Large areas of consolidative airspace disease in the right lung presumably representing pneumonia. The left lung is clear. CXR (09/28): Improving aeration of the right lung. The dense consolidation which was originally seen has continued to resolve though there are still opacities remaining Echo (10/01): 60-65% EF, Normal diastolic function, Dilated inferior vena cava (>2cm) Sputum cx (09/22): Staph Aureus; repeat sputum cx pending Blood cx (09/22): Strep Pneumoniae in 1/4 bottles; repeat cx without growth Patient completed 1 week of IV merrem (09/27-10/03) ID Is following NPO until more awake/alert. Continue tube feeds. Speech eval once appropriate. Patient extubated 09/30 to Vapotherm. several hours later, patient become unresponsive with no gag reflex to suctioning. Estuardo alejo called and patient re- intubated Estuardo Alejo called 10/05 ~8am due to concern for impending cardiac arrest. Patient desatting to low 80s with HR 31 at the time. CXR at the time showed hide riding ET tube Patient had ETT exchanged and was re-intubated. Patient satting 90s after ETT exchange in stable condition. Wean off vent as tolerated. Wean sedation. Off precedex since 10/05. Currently on propofol CXR (10/06): Right lateral mid-lower right lung opacity and Small right pleural effusion unchanged. Additional right lung opacities appear resolved. Opacity medial mid to lower left lung appears worsened. Small left pleural effusion. Repeat CXR (10/07): Progressive right perihilar airspace opacification, Possible component of pneumonia, less likely pulmonary edema s/p albumin/lasix drip (10/05-10/06) IVF dc'd (10/06) SEAN Fungal UTI SEAN secondary to toxic ATN/poor perfusion continue to monitor renal function, Cr slightly uptrending over last week renal u/s (09/23): No [place]. Unremarkable right kidney. Left kidney suboptimally visualized. CT chest/abd/pelvis noted mild left-sided hydronephrosis and bilateral perinephric stranding. bladder wall thickening Patient completed 1 week of IV merrem (09/27-10/03) continue IV diflucan (10/02-) urine cx (10/02): 3+ yeast Nephrology is following s/p albumin/lasix drip (10/05-10/06) IVF dc'd (10/06) NIDDM2 with hyperglycemia accu-cheks, SSI History of noncompliance with medications. increased semglee from 60u 10/03 will require new long-acting insulin script on dc VTE: Lovenox Code: Full Continue ICU level of care Time Spent Managing Pts Care (In Minutes): 55
--- NOTE | 2024-10-07 08:18 | RAD REPORT ---
EXAMINATION: ONE VIEW CHEST XR CLINICAL INDICATION: Male, 54 years old.,Resp failure TECHNIQUE: Frontal chest projection is submitted. Examination is limited by patient positioning and t echnique. COMPARISON: 10/06/2024 FINDINGS: Right perihilar patchy airspace opacification, progressive since prior exam. Small component of right pleural effusion suspected. Decreased inspiratory effort limits evaluation. Right arm PICC, endotracheal tube, and enteric tube unchanged in position. No pneumothorax or other sizable effusion . The heart is normal in size. Mediastinal contours are unremarkable. IMPRESSION: Progressive right perihilar airspace opacification, may reflect a component of pneumonia, less likely pulmonary edema.
[2024-10-07] MEDS: NACHLORIDE 0.45% 1,000 ML IV SCH (11:20)
[2024-10-07 17:32] LABS: Arterial Blood Carboxyhemoglob 1.3 % (0-1.5); Blood Gas Oxyhemoglobin 87.8 % (94-97); Blood Gas THB 10.8 g/dl (12-18)
--- NOTE | 2024-10-07 23:01 | PN ---
Date of Progress Note: 10/07/2024 Chief Complaint: Acute kidney injury. Subjective: The patient is in ICU. He remains intubated. Has history of acute kidney injury, elect rolytes abnormalities. He has history of diabetes mellitus, hypertension. During this admission, he developed acute kidney injury. Subsequently renal function improved and over last 24 hours, the pat ient developed prerenal azotemia. IV fluids were started today. The patient has respiratory failure , bacteremia with Staph aureus and Streptococcus pneumoniae. He is on vancomycin. Review of Systems: Unobtainable. Physical Examination: General: Remains intubated, ventilated. Heart: S1 and S2. Abdomen: Soft. Extremities: No edema. Impression And Plan: 1. Acute kidney injury due to acute tubular necrosis, worsening of the renal function over last 24 ho urs due to prerenal azotemia. Continue IV fluids. Lasix drip was stopped. 2. Hypernatremia, improving. The patient is on tube feeding, receiving free water via the tube feedi ng. 3. Respiratory failure, pneumonia, septic shock. Continue antibiotics. Rule out endocarditis. EB/MODL Voice ID: [id number] Report ID: [id number]
[2024-10-08 05:59] LABS: Anion Gap 7.7 mEq/L (5.0-15.0); Magnesium 2.5 mg/dL (1.6-2.4); Potassium 3.7 mEq/L (3.5-5.1)
[2024-10-08 06:03] LABS: Hematocrit 30.5 % (39.6-49.0); Hemoglobin 10.4 g/dL (13.6-17.9); MCH 29.9 pg (27.0-35.0); MCHC 34.1 g/dL (32.0-36.0); MCV 87.7 fL (80-100); MPV 9.2 fL (7.6-11.3); Platelets 399 thou/uL (152-406); RBC Red Blood Cell Count 3.47 M/uL (4.33-5.43); Red Cell Distribution Width 13.4 % (12.1-15.2)
--- NOTE | 2024-10-08 07:15 | RAD REPORT ---
Procedure: Chest Single View HISTORY: Respiratory failure COMPARISON: October 07, 2024 FINDINGS: Improvement in the right and no significant change in the mild left pulmonary opacities. . Lines and tubes in good position Small pleural effusions.. The heart is normal size.
[2024-10-08] MEDS ORDERED: propofoL 1,000 MG/100 ML VIAL IV SCH (08:52)
--- NOTE | 2024-10-08 12:10 | P.PN ---
Subjective Date of Service: 10/08/24 Chief Complaint: Respiratory failure Patient is failing weaning trials pressures have improved oxygen requirement is low in use to remain agitated Review of Systems is unable to be obtained Physical Examination - Vital Signs Temperature: 98.5 F Blood Pressure: 101/62 Pulse: 107 Respirations: 22 Pulse Ox (%): 95 - Physical Exam General: Unresponsive Respiratory: Clear to auscultation bilaterally Cardiovascular: No edema, Regular rate/rhythm, Normal S1 S2 Assessment And Plan - Current Problems (Diagnosis) (1) Respiratory failure Current Visit: Yes Status: Acute Plan: Patient is currently on a ventilator was admitted with severe pneumonia his chest x-ray has improved count is normal no evidence of any infection continue weaning the patient off the ventilator spontaneous breathing trials for as long as he can tolerate /labs reviewed ABG shows hypoxia hypercapnia blood sugars are controlled evaluate for tracheostomy
--- NOTE | 2024-10-08 13:41 | PN ---
Subjective: Patient lying in bed, on ventilator, being weaned off. Off antibiotic. Objective: Vital Signs: Stable. Lungs: Basal crackles, right more than left. Heart: S1, S2. Regular. Abdomen: Soft, nontender. Bowel sounds present. Extremities: Trace edema. Laboratory Data: Reviewed. Assessment And Plan: Status post treatment of pneumonia. The patient is off antibiotic. On vent, being slowly weaned off. Continue to monitor patient. Chest x-ray from today shows improvement of t he right and no significant change in the mild left pulmonary opacification. Lines and tubes are in good placement. Small pleural effusion also noted. Continue supportive care and we will monitor for signs of infection. NF/MODL Voice ID: [id number] Report ID: [id number]
[2024-10-08] MEDS: INSULIN REGULAR (HUMAN) 100 UNIT/ML SQ SCH (16:30)
--- NOTE | 2024-10-08 16:35 | P.PN ---
Subjective Date of Service: 10/08/24 Chief Complaint: Respiratory failure Patient extubated to room air clear. He is occasionally agitated. No recorded fever. Physical Examination - Vital Signs Temperature: 98.5 F Blood Pressure: 101/62 Pulse: 101 Respirations: 22 Pulse Ox (%): 100 Assessment And Plan - Plan Physical examination GEN: Awake, interactive, NAD CV: Tachycardic, regular rhythm, no edema, no murmur. Pulm: Adequate breath sounds bilaterally, bibasilar crackles . ABD: Soft, nontender, nondistended, Agrawal catheter in place. Integumentary: No rashes Neuro: Awake and interactive, patient moves all extremities Vitals reviewed Physical Exam: GEN: sedated, on vent CV: Regular rate and rhythm, trace to 1+ b/l lower extremity edema, and RUE edema Pulm: on vent; mildly diminished bilaterally, bilateral rhonchi ABD: soft, nondistended Neuro: sedated, on vent Agrawal in place, OGT in place Problem List: Acute hypoxic respiratory failure; Multifactorial secondary to right-sided pneumonia and pulmonary edema Severe sepsis secondary to right-sided pneumonia Metabolic encephalopathy secondary to above SEAN Fungal UTI NIDDM2 with hyperglycemia Pseudohyponatremia, improved Cocaine abuse Acute hypoxic respiratory failure; Multifactorial secondary to right-sided pneumonia and pulmonary edema Severe sepsis secondary to right-sided pneumonia Metabolic encephalopathy secondary to above CT chest (09/22): Large areas of consolidative airspace disease in the right lung presumably representing pneumonia. The left lung is clear. CXR (09/28): Improving aeration of the right lung. The dense consolidation which was originally seen has continued to resolve though there are still opacities remaining Echo (10/01): 60-65% EF, Normal diastolic function, Dilated inferior vena cava (>2cm) Sputum cx (09/22): Staph Aureus; repeat sputum cx pending Blood cx (09/22): Strep Pneumoniae in 1/4 bottles; repeat cx without growth Patient completed 1 week of IV merrem (09/27-10/03) ID Is following s/p albumin/lasix drip (10/05-10/06) Patient extubated 09/30 to Vapotherm. several hours later, patient become unresponsive with no gag reflex to suctioning. Estuardo alejo called and patient re- intubated Estuardo Alejo called 2/15 ~8am due to concern for impending cardiac arrest. Patient desatting to low 80s with HR 31 at the time. CXR at the time showed hide riding ET tube Patient had ETT exchanged and was re-intubated. Chest x-ray 10/08 shows improvement in the right and no significant change in the mild left pulmonary opacities. Patient extubated today to room air. Oral diet as tolerated. PT consult. SEAN Fungal UTI SEAN secondary to toxic ATN/poor perfusion continue to monitor renal function, Cr grossly unchanged. renal u/s (09/23): No [place]. Unremarkable right kidney. Left kidney suboptimally visualized. CT chest/abd/pelvis noted mild left-sided hydronephrosis and bilateral perinephric stranding. bladder wall thickening Patient completed 1 week of IV merrem (09/27-10/03) continue IV diflucan (10/02-) urine cx (10/02): 3+ yeast Nephrology is following. IV fluid per nephrology s/p albumin/lasix drip (10/05-10/06) IVF dc'd (10/06) NIDDM2 with hyperglycemia accu-cheks, SSI History of noncompliance with medications. Semglee dose increased to 60u 10/03 will require new long-acting insulin script on dc VTE: Lovenox Code: Full Continue ICU level of long term
[2024-10-08] MEDS: FENTANYL CITR 100 MCG/2 ML IV PRN (20:18)
--- NOTE | 2024-10-08 22:35 | PN ---
Date of Progress Note: 10/08/2024 Chief Complaint: Acute kidney injury. Subjective: The patient is in ICU. He is on IV fluids for acute on chronic kidney injury. He has h istory of respiratory failure. He remains intubated. He has bacteremia with Staphylococcus aureus a nd streptococcus. Review of Systems: Unobtainable. Physical Examination: General: Remains intubated, ventilated. Heart: S1, S2. Abdomen: Soft. Extremities: No edema. Impression And Plan: 1. Acute kidney injury due to acute tubular necrosis, worsening of the renal function due to prerenal azotemia. Lasix drip was stopped. Continue IV fluids. 2. Hyponatremia, improving. The patient is on tube feeding, receiving free water via tube feeding. 3. Respiratory failure, pneumonia, septic shock. Continue antibiotics. Rule out endocarditis. EB/MODL Voice ID: [id number] Report ID: [id number]
[2024-10-09 05:39] LABS: Absolute Basophils 0.1 K/uL (0-0.5); Absolute Eosinophils 0.3 K/uL (0-0.5); Absolute Lymphocytes (CBC) 1.4 K/uL (0.7-4.9); Absolute Monocytes 0.6 K/uL (0.1-1.3); Absolute Neutrophil 7.4 K/uL (1.8-8.0); Basophils % 1.4 % (0-1.3); Eosinophils % 3.2 % (0-4.4); Hematocrit 30.8 % (39.6-49.0); Hemoglobin 10.4 g/dL (13.6-17.9); MCH 28.8 pg (27.0-35.0); MCHC 33.6 g/dL (32.0-36.0); MCV 85.5 fL (80-100); MPV 9.5 fL (7.6-11.3); Neutrophils % 75.4 % (41.7-73.7); Platelets 299 thou/uL (152-406); Red Cell Distribution Width 13.3 % (12.1-15.2)
[2024-10-09 05:58] LABS: Anion Gap 6.3 mEq/L (5.0-15.0); Potassium 3.3 mEq/L (3.5-5.1)
[2024-10-09 07:51] LABS: Magnesium 2.4 mg/dL (1.6-2.4); Phosphorus 3.6 mg/dL (2.5-4.9)
[2024-10-09] MEDS: KCL 20 MEQ/100 mL IVPB 100 ML IV SCH (12:55)
--- NOTE | 2024-10-09 15:34 | PN ---
Date of Progress Note: 10/09/2024 Subjective: The patient was admitted to the hospital with respiratory failure secondary to pneumonia, had acute kidney injury, multifactorial secondary to obstructive uropathy, poor perfusion, ATN with hydronephrosis, superimposed with cocaine/toxic ATN secondary to pneumonia. The patient extubated over the night. Kidney function continued to improve. The patient on room air. Physical Examination: Vital Signs: Blood pressure 151/77, pulse of 76, afebrile. Chest: Clear to auscultation. Heart: S1, S2, regular. Abdomen: Soft, nontender. Extremities: Trace edema. Neurologic: Alert. No focality. Laboratory Data: Sodium 138, potassium 3.3, bicarb 30, BUN 34, creatinine 1.8, GFR of 44, continue to improve. Calcium 7.8, phosphorus 3.6, magnesium 2.4, hemoglobin 10.4. Current Medications: The patient on include: 1. Fluconazole. 2. Lovenox. 3. Pepcid. 4. Fentanyl. Assessment And Plan: 1. Acute kidney injury, multifactorial secondary to obstructive uropathy/cocaine/poor perfusion, acute tubular necrosis superimposed with toxic acute tubular necrosis secondary to sepsis secondary to pneumonia, continue to improve. Looked to me normal volume. No need for diuresis. We will continue to monitor the patient. 2. Next hypokalemia. I am going to supplement. 3. Hyponatremia, depletional, recovered, resolved. 4. Pneumonia with sepsis with respiratory failure, extubated. We will follow up with primary. Time spent examining the patient [id number] reviewing data lab and an audiology placing order discussing the case with the patient discussing the case with the steam [employer] records clerk including hospitalist and nursing staff more than 55-minute GWYN Voice ID: [id number] Report ID: [id number] GRACE
--- NOTE | 2024-10-09 19:03 | P.PN ---
Subjective Date of Service: 10/09/24 Chief Complaint: Respiratory failure Patient is tolerating room air. He is also tolerating diet. He appears to be slow and weak. No recorded fever. Physical Examination - Vital Signs Temperature: 98.7 F Blood Pressure: 145/99 Pulse: 79 Respirations: 16 Pulse Ox (%): 95 Assessment And Plan - Plan Physical examination GEN: Awake, interactive, NAD CV: Normal rate, regular rhythm, no edema, no murmur. Pulm: Adequate breath sounds bilaterally, bibasilar crackles . ABD: Soft, nontender, nondistended, normal bowel sounds. Integumentary: No rashes Neuro: Awake and interactive, no focal motor deficit. Vitals reviewed Physical Exam: GEN: sedated, on vent CV: Regular rate and rhythm, trace to 1+ b/l lower extremity edema, and RUE edema Pulm: on vent; mildly diminished bilaterally, bilateral rhonchi ABD: soft, nondistended Neuro: sedated, on vent Agrawal in place, OGT in place Problem List: Acute hypoxic respiratory failure; Multifactorial secondary to right-sided pneumonia and pulmonary edema Severe sepsis secondary to right-sided pneumonia Metabolic encephalopathy secondary to above SEAN Fungal UTI NIDDM2 with hyperglycemia Pseudohyponatremia, improved Cocaine abuse Acute hypoxic respiratory failure; Multifactorial secondary to right-sided pneumonia and pulmonary edema Severe sepsis secondary to right-sided pneumonia Metabolic encephalopathy secondary to above CT chest (09/22): Large areas of consolidative airspace disease in the right lung presumably representing pneumonia. The left lung is clear. CXR (09/28): Improving aeration of the right lung. The dense consolidation which was originally seen has continued to resolve though there are still opacities remaining Echo (10/01): 60-65% EF, Normal diastolic function, Dilated inferior vena cava (>2cm) Sputum cx (09/22): Staph Aureus; repeat sputum cx pending Blood cx (09/22): Strep Pneumoniae in 1/4 bottles; repeat cx without growth Patient completed 1 week of IV merrem (09/27-10/03) ID Is following s/p albumin/lasix drip (10/05-10/06) Patient extubated 09/30 to Vapotherm. several hours later, patient become unresponsive with no gag reflex to suctioning. Estuardo alejo called and patient re-intubated Estuardo Alejo called 10/05 ~8am due to concern for impending cardiac arrest. Patient desatting to low 80s with HR 31 at the time. CXR at the time showed hide riding ET tube Patient had ETT exchanged and was re-intubated. Chest x-ray 10/08 shows improvement in the right and no significant change in the mild left pulmonary opacities. Patient extubated today to room air. Oral diet as tolerated. PT consult. SEAN Fungal UTI SEAN secondary to toxic ATN/poor perfusion continue to monitor renal function, Cr grossly unchanged. renal u/s (09/23): No [place]. Unremarkable right kidney. Left kidney suboptimally visualized. CT chest/abd/pelvis noted mild left-sided hydronephrosis and bilateral perinephric stranding. bladder wall thickening Patient completed 1 week of IV merrem (09/27-10/03) continue IV diflucan (10/02-) urine cx (10/02): 3+ yeast Nephrology is following. IV fluid per nephrology s/p albumin/lasix drip (10/05-10/06) IVF dc'd (10/06) NIDDM2 with hyperglycemia accu-cheks, SSI History of noncompliance with medications. Semglee dose increased to 60u 10/03 will require new long-acting insulin script on dc. 10/09 Patient remained awake and alert. No focal motor deficit Patient is resting meaningfully. He is tolerating diet Continue IV Diflucan Nutritional supplementation. Insulin sliding scale for glucose management. SEAN continue to improve. Nephrology is following PT to evaluate. VTE: Lovenox Code: Full Continue ICU level of intermediate Anticipate downgrade to the medical floor in a.m.
[2024-10-10 06:11] LABS: Anion Gap 7.6 mEq/L (5.0-15.0); Potassium 3.6 mEq/L (3.5-5.1)
[2024-10-10] MEDS: POTASSIUM 25 MEQ EFFERV TAB PO ONE (08:37)
[2024-10-10] MEDS: AMLODIPINE 10 MG TAB PO SCH (09:24)
--- NOTE | 2024-10-10 15:37 | P.PN ---
Subjective Date of Service: 10/10/24 Chief Complaint: Respiratory failure Patient is tolerating room air. He is also tolerating diet. He appears to be more active today Physical Examination - Vital Signs Temperature: 97.2 F Blood Pressure: 106/97 Pulse: 100 Respirations: 21 Pulse Ox (%): 90 Assessment And Plan - Plan Physical examination GEN: Awake, interactive, NAD CV: Normal rate, regular rhythm, no edema, no murmur. Pulm: Adequate breath sounds bilaterally, bibasilar crackles . ABD: Soft, nontender, nondistended, normal bowel sounds. Integumentary: No rashes Neuro: Awake and interactive, no focal motor deficit. Confused. Vitals reviewed Physical Exam: GEN: sedated, on vent CV: Regular rate and rhythm, trace to 1+ b/l lower extremity edema, and RUE edema Pulm: on vent; mildly diminished bilaterally, bilateral rhonchi ABD: soft, nondistended Neuro: sedated, on vent Agrawal in place, OGT in place Problem List: Acute hypoxic respiratory failure; Multifactorial secondary to right-sided pneumonia and pulmonary edema Severe sepsis secondary to right-sided pneumonia Metabolic encephalopathy secondary to above SEAN Fungal UTI NIDDM2 with hyperglycemia Pseudohyponatremia, improved Cocaine abuse Acute hypoxic respiratory failure; Multifactorial secondary to right-sided pneumonia and pulmonary edema Severe sepsis secondary to right-sided pneumonia Metabolic encephalopathy secondary to above CT chest (09/22): Large areas of consolidative airspace disease in the right lung presumably representing pneumonia. The left lung is clear. CXR (09/28): Improving aeration of the right lung. The dense consolidation which was originally seen has continued to resolve though there are still opacities remaining Echo (10/01): 60-65% EF, Normal diastolic function, Dilated inferior vena cava (>2cm) Sputum cx (09/22): Staph Aureus; repeat sputum cx pending Blood cx (09/22): Strep Pneumoniae in 1/4 bottles; repeat cx without growth Patient completed 1 week of IV merrem (09/27-10/03) ID Is following s/p albumin/lasix drip (10/05-10/06) Patient extubated 09/30 to Vapotherm. several hours later, patient become unresponsive with no gag reflex to suctioning. Estuardo alejo called and patient re-intubated Estuardo Alejo called 10/05 ~8am due to concern for impending cardiac arrest. Patient desatting to low 80s with HR 31 at the time. CXR at the time showed hide riding ET tube Patient had ETT exchanged and was re-intubated. Chest x-ray 10/08 shows improvement in the right and no significant change in the mild left pulmonary opacities. Patient extubated today to room air. Oral diet as tolerated. PT consult. ESAN Fungal UTI SEAN secondary to toxic ATN/poor perfusion continue to monitor renal function, Cr grossly unchanged. renal u/s (09/23): No [place]. Unremarkable right kidney. Left kidney suboptimally visualized. CT chest/abd/pelvis noted mild left-sided hydronephrosis and bilateral perinephric stranding. bladder wall thickening Patient completed 1 week of IV merrem (09/27-10/03) continue IV diflucan (10/02-) urine cx (10/02): 3+ yeast Nephrology is following. IV fluid per nephrology s/p albumin/lasix drip (10/05-10/06) IVF dc'd (10/06) NIDDM2 with hyperglycemia accu-cheks, SSI History of noncompliance with medications. Semglee dose increased to 60u 10/03 will require new long-acting insulin script on dc. 10/09 Patient remained awake and alert. No focal motor deficit Patient is resting meaningfully. He is tolerating diet Continue IV Diflucan Nutritional supplementation. Insulin sliding scale for glucose management. SEAN continue to improve. Nephrology is following PT to evaluate. 10/10 The cause of confusion is unclear. Could be related to polysubstance abuse. Patient completed antibiotics for pneumonia Currently on Diflucan SEAN continue to improve Monitor electrolytes and renal function. Continue PT. Fall precautions. VTE: Lovenox Code: Full Downgrade to the medical floor.
--- NOTE | 2024-10-10 20:06 | PN ---
Date of Progress Note: 10/10/2024 Subjective: The patient was admitted to the hospital with pneumonia, respiratory failure, intubated, extubated yesterday. The patient had acute kidney injury secondary to ATN. Obstructive uropathy has been ruled out. The patient feeling better. The patient is still confused. Physical Examination: Vital Signs: When I saw the patient, blood pressure 106/97, pulse of 100, afebrile. Chest: Crackles on the left base. Heart: S1, S2. Systolic murmur. Abdomen: Soft, nontender. Extremities: No edema. Neurologic: Alert. Confused. No focality. Laboratory Data: Hemoglobin 10.4, WBC 9.8, sodium 140, potassium 3.6, bicarb 26, BUN 25, creatinine 1.5, calcium of 8. Current Medications: The patient on, it includes: 1. Fluconazole. 2. Lovenox. 3. Amlodipine. 4. Ambien. 5. Tylenol. 6. Zofran. 7. Fentanyl. Assessment And Plan: 1. Acute kidney injury secondary to poor perfusion, ATN, on the recovery. Creatinine continued to improve. We will continue to monitor the patient. 2. Hypokalemia. We will supplement. 3. Hyponatremia, resolved. 4. Alcoholic intoxication, as by Primary. 5. Pneumonia, respiratory failure, status post extubation. Follow up with Pulmonary and Primary. Time spent examining the patient [id number] reviewing data lab and an audiology placing order discussing the case with the patient discussing the case with the wireless team member including hospitalist and nursing staff more than 55-minute GWYN Voice ID: [id number] Report ID: [id number] GRACE
[2024-10-10] MEDS: ZOLPIDEM TARTRATE 5 MG TABLET PO PRN (20:20)
[2024-10-10] MEDS: NICOTINE 14 MG/PAT TD SCH (20:20)
--- NOTE | 2024-10-10 22:10 | RAD REPORT ---
EXAM: CT brain without contrast HISTORY: AMS COMPARISON: None TECHNIQUE: Multiple contiguous axial images were obtained and a CT of the brain without contrast. Sag ittal and coronal reformats were performed. One or more of the following dose reduction techniques were used: Automated exposure control, adjust ment of the mA and/or kV according to patient size, and/or iterative reconstruction. FINDINGS: No evidence of hydrocephalus, intracranial hemorrhage, or extra-axial fluid collection. The brain is normal in morphology. No evidence of midline shift or areas of brain edema. The calvarium is intact. The visualized paranasal sinuses and mastoid air cells are essentially clear . IMPRESSION: No evidence of acute intracranial abnormality.
[2024-10-11 07:22] LABS: Anion Gap 9.2 mEq/L (5.0-15.0); Potassium 4.2 mEq/L (3.5-5.1)
--- NOTE | 2024-10-11 13:36 | P.PN ---
Subjective Date of Service: 10/11/24 Chief Complaint: Respiratory failure Patient is tolerating room air. He is to develop with therapy yesterday. No issues overnight. No reported agitation. Physical Examination - Vital Signs Temperature: 97.2 F Blood Pressure: 162/88 Pulse: 76 Respirations: 18 Pulse Ox (%): 98 Assessment And Plan - Plan Physical examination GEN: Awake, interactive, NAD CV: Normal rate, regular rhythm, no edema, no murmur. Pulm: Adequate breath sounds bilaterally, bibasilar crackles . ABD: Soft, nontender, nondistended, normal bowel sounds. Integumentary: No rashes Neuro: Awake and interactive, no focal motor deficit. Confused, impulsive. Vitals reviewed Problem List: Acute hypoxic respiratory failure; Multifactorial secondary to right-sided pneumonia and pulmonary edema Severe sepsis secondary to right-sided pneumonia Metabolic encephalopathy secondary to above SEAN Fungal UTI NIDDM2 with hyperglycemia Pseudohyponatremia, improved Cocaine abuse ICU psychosis. Acute hypoxic respiratory failure; Multifactorial secondary to right-sided pneumonia and pulmonary edema Severe sepsis secondary to right-sided pneumonia Metabolic encephalopathy secondary to above CT chest (09/22): Large areas of consolidative airspace disease in the right lung presumably representing pneumonia. The left lung is clear. CXR (09/28): Improving aeration of the right lung. The dense consolidation which w as originally seen has continued to resolve though there are still opacities remaining Echo (10/01): 60-65% EF, Normal diastolic function, Dilated inferior vena cava (>2cm) Sputum cx (09/22): Staph Aureus; repeat sputum cx pending Blood cx (09/22): Strep Pneumoniae in 1/4 bottles; repeat cx without growth Patient completed 1 week of IV merrem (09/27-10/03) ID Is following s/p albumin/lasix drip (10/05-10/06) Patient extubated 09/30 to Vapotherm. several hours later, patient become unresponsive with no gag reflex to suctioning. Estuardo alejo called and patient re- intubated Estuardo Alejo called 10/05 ~8am due to concern for impending cardiac arrest. Patient desatting to low 80s with HR 31 at the time. CXR at the time showed hide riding ET tube Patient had ETT exchanged and was re-intubated. Chest x-ray 10/08 shows improvement in the right and no significant change in the mild left pulmonary opacities. Patient extubated today to room air. Oral diet as tolerated. PT consult. SEAN Fungal UTI SEAN secondary to toxic ATN/poor perfusion continue to monitor renal function, Cr grossly unchanged. renal u/s (09/23): No [place]. Unremarkable right kidney. Left kidney suboptimally visualized. CT chest/abd/pelvis noted mild left-sided hydronephrosis and bilateral perinephric stranding. bladder wall thickening Patient completed 1 week of IV merrem (09/27-10/03) continue IV diflucan (10/02-) urine cx (10/02): 3+ yeast Nephrology is following. IV fluid per nephrology s/p albumin/lasix drip (10/05-10/06) IVF dc'd (10/06) NIDDM2 with hyperglycemia accu-cheks, SSI History of noncompliance with medications. Semglee dose increased to 60u 10/03 will require new long-acting insulin script on dc. 10/09 Patient remained awake and alert. No focal motor deficit Patient is resting meaningfully. He is tolerating diet Continue IV Diflucan Nutritional supplementation. Insulin sliding scale for glucose management. SEAN continue to improve. Nephrology is following PT to evaluate. 10/10 The cause of confusion is unclear. Could be related to polysubstance abuse. Patient completed antibiotics for pneumonia Currently on Diflucan SEAN continue to improve Monitor electrolytes and renal function. Continue PT. Fall precautions. 10/11 Patient's is interactive but his speech is inappropriate and sometimes tangential. Possible ICU psychosis He is quite weak. Tolerating diet and drinking. SEAN almost resolved. Continue PT. Anticipating disposition to skilled rehab. VTE: Lovenox Code: Full Downgrade to the medical floor.
[2024-10-11] MEDS ORDERED: GUAIFENESIN/DM 5 ML UCUP PO PRN (14:09)
[2024-10-11] MEDS: CHLORASEPTIC LOZENGES PO PRN (15:36)
--- NOTE | 2024-10-11 21:32 | PN ---
Date of Progress Note: 10/11/2024 Subjective: The patient is admitted to the hospital with pneumonia, respiratory failure. He was ext ubated 2 days ago. The patient has acute kidney injury secondary to ATN, nonoliguric; obstructive ur opathy was ruled out. The patient is feeling better. He is undergoing physical therapy. Review of Systems: Denies chest pain, palpitation. Physical Examination: Lungs: Clear to auscultation bilaterally. Heart: S1, S2. Abdomen: Soft. Extremities: No edema. Impression And Plan: 1. Acute kidney injury secondary to acute tubular necrosis. Renal function improved. Monitor renal function. Continue IV fluids as needed. 2. Hypokalemia. Supplementation according to lab results. 3. Hyponatremia, resolved. 4. Alcohol intoxication per primary team. 5. Pneumonia, respiratory failure, status post extubation. The patient is followed by Pulmonary and primary team. EB/MODL Voice ID: [id number] Report ID: [id number]
--- NOTE | 2024-10-12 12:41 | P.PN ---
Subjective Date of Service: 10/12/24 Chief Complaint: Respiratory failure Patient has inappropriate speech, however he does remember some events from yesterday. No issues overnight. No reported agitation. Tolerating room air with good oxygen saturation. He has good oral intake. Physical Examination - Vital Signs Temperature: 97.7 F Blood Pressure: 148/103 Pulse: 85 Respirations: 19 Pulse Ox (%): 98 Assessment And Plan - Plan Physical examination GEN: Awake, interactive, NAD CV: Normal rate, regular rhythm, no edema, no murmur. Pulm: Adequate breath sounds bilaterally, bibasilar crackles . ABD: Soft, nontender, nondistended, normal bowel sounds. Integumentary: No rashes Neuro: Awake and interactive, no focal motor deficit. Confused, impulsive. Vitals reviewed Problem List: Acute hypoxic respiratory failure; Multifactorial secondary to right-sided pneumonia and pulmonary edema Severe sepsis secondary to right-sided pneumonia Metabolic encephalopathy secondary to above SEAN Fungal UTI NIDDM2 with hyperglycemia Pseudohyponatremia, improved Cocaine abuse ICU psychosis. Acute hypoxic respiratory failure; Multifactorial secondary to right-sided pneumonia and pulmonary edema Severe sepsis secondary to right-sided pneumonia Metabolic encephalopathy secondary to above CT chest (09/22): Large areas of consolidative airspace disease in the right lung presumably representing pneumonia. The left lung is clear. CXR (09/28): Improving aeration of the right lung. The dense consolidation which was originally seen has continued to resolve though there are still opacities remaining Echo (10/01): 60-65% EF, Normal diastolic function, Dilated inferior vena cava (>2cm) Sputum cx (09/22): Staph Aureus; repeat sputum cx pending Blood cx (09/22): Strep Pneumoniae in 1/4 bottles; repeat cx without growth Patient completed 1 week of IV merrem (09/27-10/03) ID Is following s/p albumin/lasix drip (10/05-10/06) Patient extubated 09/30 to Vapotherm. several hours later, patient become unresponsive with no gag reflex to suctioning. Estuardo alejo called and patient re- intubated Estuardo Alejo called 10/05 ~8am due to concern for impending cardiac arrest. Patient desatting to low 80s with HR 31 at the time. CXR at the time showed hide riding ET tube Patient had ETT exchanged and was re-intubated. Chest x-ray 10/08 shows improvement in the right and no significant change in the mild left pulmonary opacities. Patient extubated today to room air. Oral diet as tolerated. PT consult. SEAN Fungal UTI SEAN secondary to toxic ATN/poor perfusion continue to monitor renal function, Cr grossly unchanged. renal u/s (09/23): No [place]. Unremarkable right kidney. Left kidney suboptimally visualized. CT chest/abd/pelvis noted mild left-sided hydronephrosis and bilateral perinephric stranding. bladder wall thickening Patient completed 1 week of IV merrem (09/27-10/03) continue IV diflucan (10/02-) urine cx (10/02): 3+ yeast Nephrology is following. IV fluid per nephrology s/p albumin/lasix drip (10/05-10/06) IVF dc'd (10/06) NIDDM2 with hyperglycemia accu-cheks, SSI History of noncompliance with medications. Semglee dose increased to 60u 10/03 will require new long-acting insulin script on dc. 10/09 Patient remained awake and alert. No focal motor deficit Patient is resting meaningfully. He is tolerating diet Continue IV Diflucan Nutritional supplementation. Insulin sliding scale for glucose management. SEAN continue to improve. Nephrology is following PT to evaluate. 10/10 The cause of confusion is unclear. Could be related to polysubstance abuse. Patient completed antibiotics for pneumonia Currently on Diflucan SEAN continue to improve Monitor electrolytes and renal function. Continue PT. Fall precautions. 10/11 Patient's is interactive but his speech is inappropriate and sometimes tangential. Possible ICU psychosis He is quite weak. Tolerating diet and drinking. SEAN almost resolved. Continue PT. Anticipating disposition to skilled rehab. 10/12 Insulin sliding scale for glucose management Continue PT Monitor renal function to follow SEAN Fall precautions Awaiting insurance authorization for SNF. Diet as tolerated. VTE: Lovenox Code: Full Downgrade to the medical floor.
--- NOTE | 2024-10-12 20:53 | PN ---
Date of Progress Note: 10/12/2024 Subjective: No overnight events. Creatinine is stable at 1.3. transfer the patient to the floor. Objective: Vital Signs: Temperature 97.7, pulse rate 85, blood pressure 148/103. General: Awake and alert, not in distress. Neck: Supple. No elevated JVD. Heart: Regular rate and rhythm. Normal S1, S2. Chest: Clear to auscultation bilaterally. No other wheezes. Abdomen: Soft and nontender. Extremities: No edema. Laboratory Data: White count 9.8, hemoglobin 10.4, platelets 299. Sodium 138, potassium 4.2, creatinine 1.3. Assessment And Plan: pt presented with acute hypoxic respiratory failure intubation and pressor support. He had acute kidney injury, peak creatinine 1.8. required diuretics, 1. Acute kidney injury. Creatinine down to 1.3, stable. Renal dose medication, continue to monitor renal dose medication. 2. Acute respiratory failure due to pneumonia, extubated, not requiring oxygen. 3. Fungal urinary tract infection. Continue Diflucan. 4. Diabetes mellitus. Continue insulin drip. Thanks for allowing me to participate in patient's care. Total time spent 55 minutes including documentation, reviewing labs, and placing orders. LOI/MICKY Voice ID: [id number] Report ID: [id number] GRACE
[2024-10-13 05:12] LABS: Absolute Basophils 0.1 K/uL (0-0.5); Absolute Eosinophils 0.3 K/uL (0-0.5); Absolute Lymphocytes (CBC) 1.3 K/uL (0.7-4.9); Absolute Monocytes 0.6 K/uL (0.1-1.3); Absolute Neutrophil 6.5 K/uL (1.8-8.0); Basophils % 1.4 % (0-1.3); Eosinophils % 3.1 % (0-4.4); Hematocrit 32.9 % (39.6-49.0); Hemoglobin 11.3 g/dL (13.6-17.9); Lymphocytes % 15.1 % (15.3-44.8); MCH 28.7 pg (27.0-35.0); MCHC 34.3 g/dL (32.0-36.0); MCV 83.8 fL (80-100); MPV 8.7 fL (7.6-11.3); Monocytes % 7.1 % (3.3-12.3); Neutrophils % 73.3 % (41.7-73.7); Platelets 280 thou/uL (152-406); RBC Red Blood Cell Count 3.92 M/uL (4.33-5.43); Red Cell Distribution Width 13.2 % (12.1-15.2)
[2024-10-13 05:17] VITALS: BMI 28.8
[2024-10-13 05:25] LABS: Anion Gap 8.1 mEq/L (5.0-15.0); Potassium 4.1 mEq/L (3.5-5.1)
--- NOTE | 2024-10-13 10:48 | P.PN ---
Subjective Date of Service: 10/13/24 Chief Complaint: Respiratory failure Patient' mental status appears to be improving, his conversations is becoming more appropriate. No agitation. Tolerating room air with good oxygen saturation and eating well. Nursing staff reports patient complaining of dizziness with changing posture from lying to sitting or standing. Physical Examination - Vital Signs Temperature: 98.9 F Blood Pressure: 139/104 Pulse: 92 Respirations: 18 Pulse Ox (%): 98 Assessment And Plan - Plan Physical examination GEN: Awake, interactive, NAD CV: Normal rate, regular rhythm, no edema, no murmur. Pulm: Adequate breath sounds bilaterally, bibasilar crackles . ABD: Soft, nontender, nondistended, normal bowel sounds. Integumentary: No rashes Neuro: Awake and interactive, no focal motor deficit. Confused, impulsive. Vitals reviewed Problem List: Acute hypoxic respiratory failure; Multifactorial secondary to right-sided pneumonia and pulmonary edema Severe sepsis secondary to right-sided pneumonia Metabolic encephalopathy secondary to above SEAN Fungal UTI NIDDM2 with hyperglycemia Pseudohyponatremia, improved Cocaine abuse ICU psychosis. Acute hypoxic respiratory failure; Multifactorial secondary to right-sided pneumonia and pulmonary edema Severe sepsis secondary to right-sided pneumonia Metabolic encephalopathy secondary to above CT chest (09/22): Large areas of consolidative airspace disease in the right lung presumably representing pneumonia. The left lung is clear. CXR (09/28): Improving aeration of the right lung. The dense consolidation which was originally seen has continued to resolve though there are still opacities remaining Echo (10/01): 60-65% EF, Normal diastolic function, Dilated inferior vena cava (>2cm) Sputum cx (09/22): Staph Aureus; repeat sputum cx pending Blood cx (09/22): Strep Pneumoniae in 1/4 bottles; repeat cx without growth Patient completed 1 week of IV merrem (09/27-10/03) ID Is following s/p albumin/lasix drip (10/05-10/06) Patient extubated 09/30 to Vapotherm. several hours later, patient become unresponsive with no gag reflex to suctioning. Estuardo alejo called and patient re- intubated Estuardo Alejo called 10/05 ~8am due to concern for impending cardiac arrest. Patient desatting to low 80s with HR 31 at the time. CXR at the time showed hide riding ET tube Patient had ETT exchanged and was re-intubated. Chest x-ray 10/08 shows improvement in the right and no significant change in the mild left pulmonary opacities. Patient extubated today to room air. Oral diet as tolerated. PT consult. SEAN Fungal UTI SEAN secondary to toxic ATN/poor perfusion continue to monitor renal function, Cr grossly unchanged. renal u/s (09/23): No [place]. Unremarkable right kidney. Left kidney suboptimally visualized. CT chest/abd/pelvis noted mild left-sided hydronephrosis and bilateral perinephric stranding. bladder wall thickening Patient completed 1 week of IV merrem (09/27-10/03) continue IV diflucan (10/02-) urine cx (10/02): 3+ yeast Nephrology is following. IV fluid per nephrology s/p albumin/lasix drip (10/05-10/06) IVF dc'd (10/06) NIDDM2 with hyperglycemia accu-cheks, SSI History of noncompliance with medications. Semglee dose increased to 60u 10/03 will require new long-acting insulin script on dc. 10/09 Patient remained awake and alert. No focal motor deficit Patient is resting meaningfully. He is tolerating diet Continue IV Diflucan Nutritional supplementation. Insulin sliding scale for glucose management. SEAN continue to improve. Nephrology is following PT to evaluate. 10/10 The cause of confusion is unclear. Could be related to polysubstance abuse. Patient completed antibiotics for pneumonia Currently on Diflucan SEAN continue to improve Monitor electrolytes and renal function. Continue PT. Fall precautions. 10/11 Patient's is interactive but his speech is inappropriate and sometimes tangential. Possible ICU psychosis He is quite weak. Tolerating diet and drinking. SENA almost resolved. Continue PT. Anticipating disposition to skilled rehab. 10/12 Insulin sliding scale for glucose management Continue PT Monitor renal function to follow SEAN Fall precautions Awaiting insurance authorization for SNF. Diet as tolerated. 10/13 Clinically stable Suspect patient difficulty walking related to dizziness and incoordination. Patient completed antibiotics for pneumonia. He also completed Diflucan for fungal UTI. Continue PT. Patient slated for SNF placement. VTE: Lovenox Code: Full
--- NOTE | 2024-10-14 12:40 | EKG ---
Test Date: 2024-10-06 Test Time: 01:07:42 Combination Man: ARTA MEASUREMENT RESULTS: Intervals: Rate: 104 NV: 144 QRSD: 86 QT: 418 QTc: 549 [place]abb: P: 3 NV: 144 QRS: 63 T: 17 INTERPRETIVE STATEMENTS: Sinus tachycardia Nonspecific T wave abnormality Abnormal ECG Compared to ECG 10/05/2024 20:08:33 T-wave abnormality now present Sinus rhythm no longer present ST (T wave) deviation no longer present Possible ischemia no longer present Prolonged QT interval no longer present Electronically Signed On 10-14-24 12:21:44 SHOE LACER by Anthony Leon
--- NOTE | 2024-10-14 12:41 | EKG ---
Test Date: 2024-10-05 Test Time: 20:08:33 Coat Maker: TAMIKO MEASUREMENT RESULTS: Intervals: Rate: 98 VA: 126 QRSD: 88 QT: 422 QTc: 538 [place]: P: 74 VA: 126 QRS: 79 T: 9 INTERPRETIVE STATEMENTS: Normal sinus rhythm ST & T wave abnormality, consider anterior ischemia Prolonged QT Abnormal ECG Compared to ECG 10/02/2024 10:38:29 ST (T wave) deviation now present Possible ischemia now present Prolonged QT interval now present Electronically Signed On 10-14-24 12:22:02 MAINTENANCE PERSON by Anthony Leon
--- NOTE | 2024-10-14 14:48 | P.PN ---
Subjective Date of Service: 10/14/24 Chief Complaint: Respiratory failure Patient patient is awake and interactive, oriented x 2. He appears to be impulsive, became upset with the nursing staff and was bent on leaving the hospital today however patient cannot ambulate, has been homeless and appeared to have poor insight in his current state. Multiple team members had conversations with the patient which has calm him down for the moment. He is tolerating room air with good oxygen saturation and eating well. Physical Examination - Vital Signs Temperature: 98.0 F Blood Pressure: 138/81 Pulse: 96 Respirations: 22 Pulse Ox (%): 93 Assessment And Plan - Plan Physical examination GEN: Awake, interactive, oriented x 2, NAD CV: Normal rate, regular rhythm, no edema, no murmur. Pulm: Adequate breath sounds bilaterally, bibasilar crackles . ABD: Soft, nontender, nondistended, normal bowel sounds. Integumentary: No rashes Neuro: Awake and interactive, no focal motor deficit. Confused, impulsive. Vitals reviewed Problem List: Acute hypoxic respiratory failure; Multifactorial secondary to right-sided pneumonia and pulmonary edema Severe sepsis secondary to right-sided pneumonia Metabolic encephalopathy secondary to above SEAN Fungal UTI NIDDM2 with hyperglycemia Pseudohyponatremia, improved Cocaine abuse ICU psychosis. Acute hypoxic respiratory failure; Multifactorial secondary to right-sided pneumonia and pulmonary edema Severe sepsis secondary to right-sided pneumonia Metabolic encephalopathy secondary to above CT chest (09/22): Large areas of consolidative airspace disease in the right lung presumably representing pneumonia. The left lung is clear. CXR (09/28): Improving aeration of the right lung. The dense consolidation which was originally seen has continued to resolve though there are still opacities remaining Echo (10/01): 60-65% EF, Normal diastolic function, Dilated inferior vena cava (>2cm) Sputum cx (09/22): Staph Aureus; repeat sputum cx pending Blood cx (09/22): Strep Pneumoniae in 1/4 bottles; repeat cx without growth Patient completed 1 week of IV merrem (09/27-10/03) ID Is following s/p albumin/lasix drip (10/05-10/06) Patient extubated 09/30 to Vapotherm. several hours later, patient become unresponsive with no gag reflex to suctioning. Estuardo alejo called and patient re- intubated Estuardo Alejo called 10/05 ~8am due to concern for impending cardiac arrest. Patient desatting to low 80s with HR 31 at the time. CXR at the time showed hide riding ET tube Patient had ETT exchanged and was re-intubated. Chest x-ray 10/08 shows improvement in the right and no significant change in the mild left pulmonary opacities. Patient extubated today to room air. Oral diet as tolerated. PT consult. SEAN Fungal UTI ESAN secondary to toxic ATN/poor perfusion continue to monitor renal function, Cr grossly unchanged. renal u/s (09/23): No [place]. Unremarkable right kidney. Left kidney suboptimally visualized. CT chest/abd/pelvis noted mild left-sided hydronephrosis and bilateral perinephric stranding. bladder wall thickening Patient completed 1 week of IV merrem (09/27-10/03) continue IV diflucan (10/02-) urine cx (10/02): 3+ yeast Nephrology is following. IV fluid per nephrology s/p albumin/lasix drip (10/05-10/06) IVF dc'd (10/06) NIDDM2 with hyperglycemia accu-cheks, SSI History of noncompliance with medications. Semglee dose increased to 60u 10/03 will require new long-acting insulin script on dc. 10/09 Patient remained awake and alert. No focal motor deficit Patient is resting meaningfully. He is tolerating diet Continue IV Diflucan Nutritional supplementation. Insulin sliding scale for glucose management. SEAN continue to improve. Nephrology is following PT to evaluate. 10/10 The cause of confusion is unclear. Could be related to polysubstance abuse. Patient completed antibiotics for pneumonia Currently on Diflucan SEAN continue to improve Monitor electrolytes and renal function. Continue PT. Fall precautions. 10/11 Patient's is interactive but his speech is inappropriate and sometimes tangential. Possible ICU psychosis He is quite weak. Tolerating diet and drinking. SEAN almost resolved. Continue PT. Anticipating disposition to skilled rehab. 10/12 Insulin sliding scale for glucose management Continue PT Monitor renal function to follow SEAN Fall precautions Awaiting insurance authorization for SNF. Diet as tolerated. 10/13 Clinically stable Suspect patient difficulty walking related to dizziness and incoordination. Patient completed antibiotics for pneumonia. He also completed Diflucan for fungal UTI. Continue PT. Patient slated for SNF placement. 10/14 Patient highly impulsive today triggered by being upset with his nurse. He currently not able to walk. Patient demanded we provide him a wheelchair and wheel him out of the door, stating he wants to leave. Estuardo serrano was called on him today, he was found flat on the floor. Nursing staff report patient slid from the bed to the floor stating he will roll himself out. Patient's has been tangential at times. He lacks insight into his medical conditions and current situation. Patient convinced to stay for therapy which he has agreed. Psychiatry Dr. Heredia consulted to evaluate patient and he recommended to start Abilify and sertraline for now. Patient completed antibiotics for pneumonia and he is stable on room air. He also completed Diflucan for yeast UTI. Continue PT if possible. VTE: Lovenox Code: Full
[2024-10-14] MEDS: SERTRALINE HCL 50 MG TAB PO SCH (15:06)
[2024-10-14] MEDS: ARIPiprazole 5 MG TAB PO SCH (21:22)
[2024-10-15 08:05] VITALS: O2SAT 96
--- NOTE | 2024-10-15 11:40 | PN ---
Date of Progress Note: 10/15/2024 Subjective: The patient was admitted to the hospital with acute kidney injury secondary to poor perfusion ATN, obstructive uropathy, low blood pressure with cocaine induced. The patient's kidney function has been improved. The patient intubated, extubated. The patient is feeling well. Physical Examination: Vital Signs: Blood pressure 149/91, pulse of 87, afebrile. Chest: Clear to auscultation. Heart: S1, S2. Regular. Abdomen: Soft, nontender. Extremities: No edema. Neurologic: Alert. No focality. Laboratory Data: Hemoglobin 11.3, sodium 133, potassium 4.1, bicarb 28, BUN 18, creatinine 1.3, GFR of 62, calcium 8.6. Current Medications: The patient on, it includes: 1. Amlodipine. 2. Nicotine patch. 3. Tylenol. 4. Ambien. 5. Abilify. 6. Pepcid. Assessment And Plan: 1. Acute kidney injury secondary to prerenal, poor perfusion ATN, toxic ATN, recovered, resolved. We will continue to monitor. 2. Hypertension, controlled, optimal. Continue current treatment. 3. Hyponatremia, depletional, resolved. 4. Hypokalemia, resolved. 5. Pneumonia, as by Primary. Time spent examining the patient [id number] reviewing data lab and an audiology placing order discussing the case with the patient discussing the case with the endless steamer tender including hospitalist and nursing staff more than 55-minute GWYN Voice ID: [id number] Report ID: [id number] GRACE
--- NOTE | 2024-10-15 11:47 | P.PN ---
Date of Service: 10/15/24 Subjective: refusing meds at times, but then agreeable later in the day weak, rundown. Webster dizzy after sitting in bed for a few seconds. Feels R ear is clogged with wax - has happened multiple times in past Hasn't gotten out of bed / ambulated since admission. breathing stable on room air afebrile states he wants to go home / tired of being in hospital ROS: 10 point ROS as noted above, otherwise negative Physical Exam: GEN: awake, alertx3, NAD CV: Regular rate and rhythm, no edema Pulm: Nonlabored respirations on room air, mild cough ABD: soft, nondistended Neuro: awake and interactive. Problem List: Acute hypoxic respiratory failure; Multifactorial secondary to right-sided pneumonia and pulmonary edema Severe sepsis secondary to right-sided pneumonia Metabolic encephalopathy secondary to above SEAN Fungal UTI NIDDM2 with hyperglycemia Pseudohyponatremia, improved Cocaine abuse Acute hypoxic respiratory failure; Multifactorial secondary to right-sided pneumonia and pulmonary edema Severe sepsis secondary to right-sided pneumonia Metabolic encephalopathy secondary to above CT chest (09/22): Large areas of consolidative airspace disease in the right lung presumably representing pneumonia. The left lung is clear. CXR (09/28): Improving aeration of the right lung. The dense consolidation which was originally seen has continued to resolve though there are still opacities remaining Echo (10/01): 60-65% EF, Normal diastolic function, Dilated inferior vena cava (>2cm) Sputum cx (09/22): Staph Aureus; repeat sputum cx pending Blood cx (09/22): Strep Pneumoniae in 1/4 bottles; repeat cx without growth Patient completed 1 week of IV merrem (09/27-10/03) ID Is following s/p albumin/lasix drip (10/05-10/06) Patient extubated 09/30 - several hours later, patient become unresponsive with no gag reflex to suctioning. Estuardo alejo called and patient re-intubated Estuardo Alejo called 10/05 ~8am due to concern for impending cardiac arrest. Patient desatting to low 80s with HR 31 at the time. CXR at the time showed hide riding ET tube Patient had ETT exchanged and was re-intubated. Chest x-ray 10/08 shows improvement in the right and no significant change in the mild left pulmonary opacities. Patient extubated to room air 10/08. Off sedation. Oral diet as tolerated. PT consult. overall improving, primarily weak since being in bed all this time was able to sit up for me on the bed with minimal assist does seem to have some insight, and able to explain what is going on, and why he doesn't want to be in the hospital doesn't seem to have a great plan / well thought out plan at this time, but explains to me that he doesn't have to prove a good plan to me in order to get out of the hospital. Patient's mother is concerned about his well-being / able to care for himself in his current state. Discussed if he has someone to come pick him up and can help care for him in his current physical limitations, we can discuss discharge SEAN Fungal UTI SEAN secondary to toxic ATN/poor perfusion continue to monitor renal function, Cr slightly uptrending over last week renal u/s (09/23): No [place]. Unremarkable right kidney. Left kidney suboptimally visualized. CT chest/abd/pelvis noted mild left-sided hydronephrosis and bilateral perinephric stranding. bladder wall thickening urine cx (10/02): 3+ yeast Patient completed 1 week of IV merrem (09/27-10/03) s/p 10 days of IV diflucan (10/02-10/12) Nephrology is following NIDDM2 with hyperglycemia accu-cheks, SSI History of noncompliance with medications. may require new long-acting insulin script on dc VTE: Lovenox Code: Rubber And Pounder Spent Managing Pts Care (In Minutes): 55
--- NOTE | 2024-10-16 11:50 | P.PN ---
Date of Service: 10/16/24 Subjective: patient unable to get into wheelchair on his own upset we are not lifting him into wheelchair and rolling him into the parking lot not wanting to discuss anything else this morning refused meds/labs ROS: 10 point ROS as noted above, otherwise negative Physical Exam: GEN: awake, alertx3, NAD Pulm: Nonlabored respirations on room air Neuro: awake and interactive. Problem List: Acute hypoxic respiratory failure; Multifactorial secondary to right-sided pneumonia and pulmonary edema Severe sepsis secondary to right-sided pneumonia Metabolic encephalopathy secondary to above SEAN Fungal UTI NIDDM2 with hyperglycemia Pseudohyponatremia, improved Cocaine abuse Acute hypoxic respiratory failure; Multifactorial secondary to right-sided pneumonia and pulmonary edema Severe sepsis secondary to right-sided pneumonia Metabolic encephalopathy secondary to above overall improving, primarily weak since being in bed all this time was able to sit up for me on the bed with minimal assist does seem to have some insight, and able to explain what is going on, and why he doesn't want to be in the hospital doesn't seem to have a great plan / well thought out plan at this time, but explains to me that he doesn't have to prove a good plan to me in order to get out of the hospital. Patient's mother is concerned about his well-being / able to care for himself in his current state. Discussed if he has someone to come pick him up and can help care for him in his current physical limitations, we can discuss discharge encouraged to work with PT to help him rebuild strength SEAN Fungal UTI SEAN secondary to toxic ATN/poor perfusion continue to monitor renal function, Cr slightly uptrending over last week renal u/s (09/23): No [place]. Unremarkable right kidney. Left kidney suboptimally visualized. CT chest/abd/pelvis noted mild left-sided hydronephrosis and bilateral perinephric stranding. bladder wall thickening urine cx (10/02): 3+ yeast Patient completed 1 week of IV merrem (09/27-10/03) s/p 10 days of IV diflucan (10/02-10/12) Nephrology is following NIDDM2 with hyperglycemia accu-cheks, SSI History of noncompliance with medications. may require new long-acting insulin script on dc VTE: Lovenox Code: Cooker Sulfate Spent Managing Pts Care (In Minutes): 45
--- NOTE | 2024-10-16 12:41 | PN ---
Date of Progress Note: 10/16/2024 Subjective: The patient was admitted to the hospital with sepsis secondary to pneumonia. The patien t had acute kidney injury secondary to toxic ATN, poor perfusion ATN, and cocaine use. The patient's kidney function has been improved, did not require any renal replacement therapy. Physical Examination: Vital Signs: Blood pressure of 149/91, pulse of 86. Chest: Clear to auscultation. Heart: S1, S2 regular. Abdomen: Soft, nontender. Extremities: No edema. Neurologic: Alert, no focality. Laboratory Data: Sodium 133, potassium 4.1, bicarb 28, BUN 18, creatinine 1.3, GFR 62, calcium 8.6, hemoglobin 11.3. Current Medications: The patient on include: 1. Lovenox. 2. Tylenol. 3. Labetalol. 4. Zoloft. 5. Pepcid. Assessment And Plan: 1. Acute kidney injury secondary to toxic acute tubular necrosis, poor perfusion acute tubular necros is, recovered, resolved. Normal volume. Off IV fluid. Continue to monitor. 2. Hyponatremia, depletional, resolved. 3. Hypokalemia, status post supplement, resolved. 4. Sepsis secondary to pneumonia with respiratory failure. Extubated, recovered, resolved. MA/MODL Voice ID: [id number] Report ID: [id number]
--- NOTE | 2024-10-17 14:52 | PN ---
Date of Progress Note: 10/17/2024 Subjective: The patient was admitted with respiratory failure, pneumonia, acute kidney injury second steven to poor perfusion, ATN, intubated, extubated, kidney function normalized. Physical Examination: Vital Signs: When I saw the patient, blood pressure 164/93, pulse of 95. Chest: Clear to auscultation. Heart: S1, S2 regular. Abdomen: Soft, nontender. Extremities: No edema. Neurologic: Alert. No focality. Laboratory Data: Hemoglobin 11.3. Sodium 133, potassium 4.1, bicarb 28, BUN 18, creatinine 1.3, GFR 62. This is lab done on the . Current Medications: The patient on include: 1. Nicotine. 2. Lovenox. 3. Amlodipine 10 mg daily. 4. Abilify. 5. Zoloft. 6. Pepcid. Assessment And Plan: 1. Acute kidney injury secondary to poor perfusion, toxic ATN, secondary to sepsis, recovered, resolv ed, off IV fluid. We will continue to monitor. 2. Hyponatremia, depletional, resolved. 3. Hypokalemia, resolved. 4. Sepsis secondary to pneumonia with respiratory failure, resolved. MANUEL/MODL Voice ID: [id number] Report ID: [id number]
--- NOTE | 2024-10-17 15:04 | P.PN ---
Date of Service: 10/17/24 Subjective: patient unable to get into wheelchair on his own refusing labs/meds/PT only repeating to get out of his room ROS: unable to be obtained Physical Exam: GEN: awake, alertx3, NAD Pulm: Nonlabored respirations on room air Neuro: awake and interactive. Problem List: Acute hypoxic respiratory failure; Multifactorial secondary to right-sided pneumonia and pulmonary edema Severe sepsis secondary to right-sided pneumonia Metabolic encephalopathy secondary to above SEAN Fungal UTI NIDDM2 with hyperglycemia Pseudohyponatremia, improved Cocaine abuse Acute hypoxic respiratory failure; Multifactorial secondary to right-sided pneumonia and pulmonary edema Severe sepsis secondary to right-sided pneumonia Metabolic encephalopathy secondary to above overall improving, primarily weak since being in bed all this time was able to sit up for me on the bed with minimal assist on 10/15 unable to get up to wheelchair on his own refusing PT does seem to have some insight, and able to explain what is going on, and why he doesn't want to be in the hospital doesn't seem to have a great plan / well thought out plan at this time, but explains to me that he doesn't have to prove a good plan to me in order to get out of the hospital. Patient's mother is concerned about his well-being / able to care for himself in his current state. Discussed if he has someone to come pick him up and can help care for him in his current physical limitations, we can discuss discharge encouraged to work with PT to help him rebuild strength SEAN Fungal UTI SEAN secondary to toxic ATN/poor perfusion; resolved s/p diflucan NIDDM2 with hyperglycemia accu-cheks, SSI History of noncompliance with medications. VTE: refusing Code: Bell Valet Spent Managing Pts Care (In Minutes): 30
--- NOTE | 2024-10-18 09:39 | P.PN ---
Date of Service: 10/18/24 Subjective: agitated at times, appears more calm this morning. refusing labs/PT/bed. Doesnt want to be touched or cleaned. vitals stables afebrile ROS: unable to be obtained Physical Exam: GEN: awake, alertx3, NAD Pulm: Nonlabored respirations on room air Neuro: awake and interactive. Problem List: Acute hypoxic respiratory failure; Multifactorial secondary to right-sided pneumonia and pulmonary edema Severe sepsis secondary to right-sided pneumonia Metabolic encephalopathy secondary to above SEAN Fungal UTI NIDDM2 with hyperglycemia Pseudohyponatremia, improved Cocaine abuse Acute hypoxic respiratory failure; Multifactorial secondary to right-sided pneumonia and pulmonary edema Severe sepsis secondary to right-sided pneumonia Metabolic encephalopathy secondary to above overall improving, primarily weak since being in bed all this time was able to sit up for me on the bed with minimal assist on 10/15 unable to get up to wheelchair on his own refusing PT does seem to have some insight, and able to explain what is going on, and why he doesn't want to be in the hospital doesn't seem to have a great plan / well thought out plan at this time, but explains to me that he doesn't have to prove a good plan to me in order to get out of the hospital. Patient's mother is concerned about his well-being / able to care for himself in his current state. Discussed if he has someone to come pick him up and can help care for him in his current physical limitations, we can discuss discharge encouraged to work with PT to help him rebuild strength SEAN Fungal UTI SEAN secondary to toxic ATN/poor perfusion; resolved s/p diflucan NIDDM2 with hyperglycemia accu-cheks, SSI History of noncompliance with medications. VTE: refusing Code: Operations Research Analyst Spent Managing Pts Care (In Minutes): 30
--- NOTE | 2024-10-18 10:47 | PN ---
Date of Progress Note: 10/18/2024 Subjective: The patient is admitted with respiratory failure, pneumonia, and sepsis. He required in tubation and was in ICU. Currently, he is on the telemetry floor, extubated, hemodynamically stable. Renal function improved to baseline. Review of Systems: Denies chest pain, palpitations. Physical Examination: Lungs: Diminished breath sound at bases. Heart: S1, S2. Abdomen: Soft. Extremities: No edema. Impression And Plan: 1. Acute kidney injury secondary to renal hypoperfusion in the setting of sepsis and septic shock. R enal function recovered to baseline. Acute kidney injury resolved. 2. Hyponatremia, depletional, resolved. Continue to monitor. 3. Hypokalemia, status post supplementation, resolved. Monitor electrolytes. 4. Sepsis secondary to pneumonia with respiratory failure, status post antibiotics. EB/MODL Voice ID: [id number] Report ID: [id number]
[2024-10-18 12:43] VITALS: BP 139/90; TEMP 98.3
[2024-10-18 12:52] LABS: Anion Gap 9.1 mEq/L (5.0-15.0); Potassium 4.1 mEq/L (3.5-5.1)
[2024-10-18] MEDS ORDERED: GLUCERNA SHAKE 237 ML CAN PO SCH ×2 (21:00)
--- NOTE | 2024-10-19 06:31 | P.DS ---
Admission Date: 09/22/24 Discharge Date: 10/18/24 Disposition: ROUTINE DISCHARGE Discharge Condition: FAIR Reason for Admission: Respiratory failure Consultations: ENT - Dr. Person Infectious Disease - Dr. Garcia Nephrology - Dr. Merrill, Dr. Hardy-Janie, Dr. Wheeler Pulmonology - Dr. Dodd Psych - Dr. Heredia Brief History of Present Illness: 54yo M, PMH: diabetes mellitus type 2 Patient who is currently homeless presents to the emergency department with chief complaint of shortness of breath. His mother at bedside reports that he had called her to let her know that he had not been feeling well on Wednesday 09/20 and apparently he had been getting worse since then. When he showed up to the emergency department he was tachycardic, hypertensive and on a nonrebreather. He was sometimes uncooperative removing oxygen and IVs, agitated. He required medications for anxiety and pain. He ultimately ended up on BiPAP which she has been tolerating with need for redirection and medication to manage anxiety and pain. He was evaluated in the emergency department and found to have a significant right sided pneumonia, on CT chest there are large areas of consolidative airspace disease in the right lung presumably representing pneumonia. Left lung is clear. Labs are significant for a white blood cell count of 15.1 glucose 509 sodium with pseudohyponatremia with sodium of 125 T. bili 1.2 troponin 14.5 BNP 1265 UDS positive for cocaine. Patient will require admission to ICU given concern for respiratory status. He was given vancomycin, Zosyn in the ED. Hospital Course: Problem List: Acute hypoxic respiratory failure; Multifactorial secondary to right-sided pneumonia and pulmonary edema Severe sepsis secondary to right-sided pneumonia Metabolic encephalopathy secondary to above SEAN Fungal UTI NIDDM2 with hyperglycemia Pseudohyponatremia, improved Cocaine abuse Physician discharge instructions: Patient presented with worsening shortness of breath, congestion, cough. Multifactorial etiology secondary to combinations of right-sided pneumonia and pulmonary edema. Shorty after admission, patient's respiratory status declined, requiring intubation, set up mechanic ventilation. Patient was extubated 09/30. Several hours later after extubation, patient become unresponsive with no gag reflex to suctioning. Dmitry alejo called and patient had to be Re-intubated. Patient remained relatively stable over the next few days, but unable to wean off vent. On 10/05, dmitry alejo was called ~8am due to concern for impending cardiac arrest. Patient desatting to low 80s with HR 31 at the time. Patient had ETT exchanged and had to be re-intubated. Patient was eventually successfully extubated to room air and off sedation on 10/08. Repeat chest xray post intubated showed improvement in right and and no significant change in the mild left pulmonary opacities. Patient's respiratory status improved, breathing comfortably on room air after extubation. However hospitalization was prolonged/complicated by severe decreased physical deconditioning, weakness. Patient was started on IV antibiotics given presumed pneumonia seen on CT imaging on admission. IV cefepime was switched to merrem on 09/26, given culture results. Sputum culture grew Staph Aureus (09/22). 08/24 Blood cultures were positive for strep pneumoniae. BEN Horowitz was consulted. Repeat blood cultures and sputum culture were without growth. Patient completed 1 week of IV merrem (09/27-10/03). Urine culture from 10/02 grew 3+ yeast. Patient completed 10 days of IV diflucan (10/02-10/12). no further antibiotics needed Renal function fluctuated throughout hospitalization. acute kidney injury with Multifactorial etiology secondary to toxic ATN/poor perfusion/diuresis. Renal ultrasound was unremarkable. Nephrology was consulted and assisted with management. Creatinine improved with IV hydration. Renal function on day of discharge: 1.35. Follow up with nephrology in 2 weeks for further management, repeat blood work. Medications: thiamine vitamin amlodipine for blood pressure abilify and zoloft for mood / depression recovering after ICU pepcid for acid reflux refill of metformin sent Follow up: PCP 3-5 days Nephrology 1-2 weeks Pulmonology 2-4 weeks Please call to schedule / confirm appointments Echo (10/01): 60-65% EF, Normal diastolic function, Dilated inferior vena cava (>2cm) CT chest 09/22): Large areas of consolidative airspace disease in the right lung presumably representing pneumonia. The left lung is clear. Suggest either imaging follow-up to ensure improvement or bronchoscopy for further evaluation CT chest (10/01): 1. Though the initial area of consolidation in the right upper lobe has improved from the initial CT, there is worsened right lower lobe consolidation and new fairly widespread bilateral nodular airspace disease and small bilateral pleural effusions. Some of these findings could be secondary to pulmonary edema as the patient clearly has anasarca. 2. Cholelithiasis with gallbladder wall thickening but with underdistended gallbladder. Cholecystitis considered unlikely but correlate with LFTs. 3. Mild left-sided hydronephrosis and bilateral perinephric stranding. No obstructing stone or mass. The bladder wall is also thickened. Suggest correla tion with urinalysis to exclude cystitis and/or pyelonephritis. Physical Exam: GEN: awake, alertx3, NAD CV: Regular rate and rhythm, no edema Pulm: Nonlabored respirations on room air, clear bilaterally ABD: soft, nontender, nondistended Neuro: awake and interactive. Vital Signs/Physical Exam: Temp Pulse Resp BP Pulse Ox 98.3 F 97 H 16 139/90 97 10/18/24 12:00 10/18/24 12:00 10/18/24 12:00 10/18/24 12:00 10/18/24 12:00 Laboratory Data at Discharge: WBC Cancelled 10/15/24 05:00 Hgb Cancelled 10/15/24 05:00 Hct Cancelled 10/15/24 05:00 Plt Count Cancelled 10/15/24 05:00 PT 13.3 SECONDS (9.4-12.5) H 10/05/24 05:35 INR 1.27 10/05/24 05:35 APTT 26.7 SECONDS (24.3-36.9) 10/05/24 05:35 Sodium 131 mEq/L (136-145) L 10/18/24 12:32 Potassium 4.1 mEq/L (3.5-5.1) 10/18/24 12:32 BUN 20 mg/dL (7-18) H 10/18/24 12:32 Creatinine 1.36 mg/dL (0.70-1.30) H 10/18/24 12:32 Glucose 238 mg/dL (74-106) H 10/18/24 12:32 Uric Acid 3.7 mg/dL (3.5-7.2) 10/03/24 05:00 Phosphorus 3.6 mg/dL (2.5-4.9) 10/09/24 05:10 Magnesium 2.4 mg/dL (1.6-2.4) 10/09/24 05:10 Total Bilirubin Cancelled 10/15/24 05:00 AST Cancelled 10/15/24 05:00 ALT Cancelled 10/15/24 05:00 Alkaline Phosphatase Cancelled 10/15/24 05:00 Home Medications: ARIPiprazole [Abilify*] 5 mg PO BEDTIME 30 Days #30 tab 10/18/24 Amlodipine [Norvasc*] 5 mg PO DAILY 30 Days #30 tab 10/18/24 Famotidine 20 mg PO DAILY 30 Days #30 tab 10/18/24 Metformin HCl [Glucophage*] 500 mg PO BIDWM 30 Days #60 tab 10/18/24 Sertraline [Zoloft*] 25 mg PO DAILY 60 Days #30 tab 10/18/24 Thiamine HCl 100 mg PO DAILY 30 Days #30 tab 10/18/24 New Medications: ARIPiprazole [Abilify*] 5 mg PO BEDTIME 30 Days #30 tab Famotidine 20 mg PO DAILY 30 Days #30 tab Metformin HCl [Glucophage*] 500 mg PO BIDWM 30 Days #60 tab Amlodipine [Norvasc*] 5 mg PO DAILY 30 Days #30 tab Thiamine HCl 100 mg PO DAILY 30 Days #30 tab Sertraline [Zoloft*] 25 mg PO DAILY 60 Days #30 tab Physician Discharge Instructions: Physician discharge instructions: Patient presented with worsening shortness of breath, congestion, cough. Multifactorial etiology secondary to combinations of right-sided pneumonia and pulmonary edema. Shorty after admission, patient's respiratory status declined, requiring intubation, set up mechanic ventilation. Patient was extubated 09/30. Several hours later after extubation, patient become unresponsive with no gag reflex to suctioning. Dmitry alejo called and patient had to be Re-intubated. Patient remained relatively stable over the next few days, but unable to wean off vent. On 10/05, dmitry alejo was called ~8am due to concern for impending cardiac arrest. Patient desatting to low 80s with HR 31 at the time. Patient had ETT exchanged and had to be re-intubated. Patient was eventually successfully extubated to room air and off sedation on 10/08. Repeat chest xray post intubated showed improvement in right and and no significant change in the mild left pulmonary opacities. Patient's respiratory status improved, breathing comfortably on room air after extubation. However hospitalization was prolonged/complicated by severe decreased physical deconditioning, weakness. Patient was started on IV antibiotics given presumed pneumonia seen on CT imaging on admission. IV cefepime was switched to merrem on 09/26, given culture results. Sputum culture grew Staph Aureus (09/22). 08/24 Blood cultures were positive for strep pneumoniae. BEN Horowitz was consulted. Repeat blood cultures and sputum culture were without growth. Patient completed 1 week of IV merrem (09/27-10/03). Urine culture from 10/02 grew 3+ yeast. Patient completed 10 days of IV diflucan (10/02-10/12). no further antibiotics needed Renal function fluctuated throughout hospitalization. acute kidney injury with Multifactorial etiology secondary to toxic ATN/poor perfusion/diuresis. Renal ultrasound was unremarkable. Nephrology was consulted and assisted with management. Creatinine improved with IV hydration. Renal function on day of discharge: 1.35. Follow up with nephrology in 2 weeks for further management, repeat blood work. Medications: thiamine vitamin amlodipine for blood pressure abilify and zoloft for mood / depression recovering after ICU pepcid for acid reflux refill of metformin sent Follow up: PCP 3-5 days Nephrology 1-2 weeks Pulmonology 2-4 weeks Please call to schedule / confirm appointments Echo (10/01): 60-65% EF, Normal diastolic function, Dilated inferior vena cava (>2cm) CT chest 09/22): Large areas of consolidative airspace disease in the right lung presumably representing pneumonia. The left lung is clear. Suggest either imaging follow-up to ensure improvement or bronchoscopy for further evaluation CT chest (10/01): 1. Though the initial area of consolidation in the right upper lobe has improved from the initial CT, there is worsened right lower lobe consolidation and new fairly widespread bilateral nodular airspace disease and small bilateral pleural effusions. Some of these findings could be secondary to pulmonary edema as the patient clearly has anasarca. 2. Cholelithiasis with gallbladder wall thickening but with underdistended gallbladder. Cholecystitis considered unlikely but correlate with LFTs. 3. Mild left-sided hydronephrosis and bilateral perinephric stranding. No obstructing stone or mass. The bladder wall is also thickened. Suggest correlation with urinalysis to exclude cystitis and/or pyelonephritis. Followup: Esequiel Dodd MD [ACTIVE - CAN ADMIT] - 1-2 Weeks Theo Merrill MD [ACTIVE - CAN ADMIT] - 1-2 Weeks NONE,NONE [Primary Care Provider] - Time spent managing pt's care (in minutes): 45
--- NOTE | 2024-10-24 10:16 | CON ---
Date of Consultation: 10/15/2024 Reason For Consult: Evaluate the patient with depressive symptoms as well as agitation, and make rec ommendation. History Of Present Illness: Mr. All Bazan is a 54-year-old male who was see n in medical floor, room 202. He was admitted on account of severe sepsis and pneumonia, and was als o found to have urine drug screen that was positive for cocaine. During admission, he was found to b e little agitated and reported feeling depressed. On evaluation today, October 15, 2024, the patien t was met in his room. Reports that he was frustrated being here. Admits to chronic history of coca ine dependence and apparently feeling depressed, but not suicidal. He reports that he is homeless, b ut he is stating that he wants to get discharged and go live with his sister. Denies history of suic idal ideation or previous attempt. Denies homicidal ideation. States he has been stable because he has not been discharged, and states he has . He reports some anxiety, but was not able to describe what that looks like, but states that for his anxiety and frustration. The patie nt in clinic states he has been treated by a psychiatrist, and he was on his psychotropic medication. He denies having psychotic symptoms and no paranoia. No delusional symptoms elicited or reported. Says he is currently homeless and has been so for a while. He did not have any job. He denied any cognitive impairment. until he finds something meaningful for himself. Mental Status Examination: The patient is well-nourished male not fully coopera tive not in any obvious acute cardiac or respiratory distress. Mild psychomotor agitation . Speech is spontaneous, at times inaudible, no flight of ideas. No delusional thoughts are elicited. Thought process is mostly linear, at times circumstantial. Thought content: No delus ional thoughts. No suicidal or homicidal ideation elicited. No auditory or visual hallucination [place] cited. Fund of knowledge fair. Language skills fair. Insight, judgment, impulse control: Limited . Assessment: 1. Mood disorder, unspecified. 2. Anxiety disorder, unspecified. 3. Cocaine use unspecified. Plan: Recommend the patient to be discharged to be with sister as the patient does not me et criteria for inpatient psychiatric admission. Recommend the patient needs rehab treatment, polysu bstance abuse treatment. The patient indicated lack of interest at this time. Recommend Abilify 5 m g p.o. daily for mood symptoms. Recommend mg p.o. daily for anxiety and depressive sympto ms. The patient will discussed treatment recommendation with treatment team. Psychiatry will sign off for this patient at this time. Should he have any further need, we could be re-consult ed. DANIA Voice ID: [id number] Report ID: [id number]
--- NOTE | 2024-10-24 10:35 | EEG ---
CHART: [id number] TEST ID#: [id number] DATE OF STUDY: 10/11/2024 THE EEG WAS RECORDED PORTABLE IN THE ICU ON A 17 CHANNEL MACHINE. ELECTRODES WERE APPLIED IN THE USUAL MANNER USING THE INTERNATIONAL 10-20 SYSTEM. THE WAKING BACKGROUND RHYTHM IN THIS RECORD CONSISTS OF VERY WELL DEVELOPED AND WELL ORGANIZED WAVES OF HZ., MAXIMAL IN THE POSTERIOR HEAD REGIONS WHICH ATTENUATE NORMALLY WITH EYE OPENING. LOW-VOLTAGE 18-22 HZ ACTIVITY IS EXPRESSED IN THE FRONTAL REGIONS. THERE ARE NO FOCAL OR LATERALIZING FEATURES. NO EPILEPTIFORM ACTIVITY APPEARS. SLEEP DID NOT OCCUR. HYPERVENTILATION WAS NOT PERFORMED. PHOTIC STIMULATION PRODUCED FAIR DRIVING BILATERALLY. IMPRESSION: NORMAL EEG FOR THE AGE OF THE PATIENT IN WAKE AND DROWSY EEG.
== END 2024-10-18 15:22 | disposition home or self-care (01) | DRG 870 ==
LOC: ER 09:50 → ERHOLD 13:10 → 3RD-ICU 14:03 → 2ND 10-13 20:30
PROVIDERS: ADMIT Hospitalist; ATTEND Hospitalist
PROC: 5A1955Z Respiratory Ventilation, Greater than 96 Consecutive Hours (ICD-10-PCS; principal; 2024-09-22)
PROC: 4A033R1 Measurement of Arterial Saturation, Peripheral, Percutaneous Approach (ICD-10-PCS; 2024-09-22)
PROC: 5A09357 Assistance with Respiratory Ventilation, Less than 24 Consecutive Hours, Continuous Positive Airway Pressure (ICD-10-PCS; 2024-09-22)
PROC: 5A0935A Assistance with Respiratory Ventilation, Less than 24 Consecutive Hours, High Flow/Velocity Cannula (ICD-10-PCS; 2024-09-22)
PROC: 0BH17EZ Insertion of Endotracheal Airway into Trachea, Via Natural or Artificial Opening (ICD-10-PCS; 2024-09-22)
PROC: 0DH67UZ Insertion of Feeding Device into Stomach, Via Natural or Artificial Opening (ICD-10-PCS; 2024-09-22)
PROC: 0T9B70Z Drainage of Bladder with Drainage Device, Via Natural or Artificial Opening (ICD-10-PCS; 2024-09-22)
PROC: 3E053XZ Introduction of Vasopressor into Peripheral Artery, Percutaneous Approach (ICD-10-PCS; 2024-09-22)
PROC: 02HV33Z Insertion of Infusion Device into Superior Vena Cava, Percutaneous Approach (ICD-10-PCS; 2024-09-23)
DX: A41.01 Sepsis due to Methicillin susceptible Staphylococcus aureus (principal); J18.9 Pneumonia, unspecified organism; J96.01 Acute respiratory failure with hypoxia; G93.41 Metabolic encephalopathy; N17.0 Acute kidney failure with tubular necrosis; R65.21 Severe sepsis with septic shock; I46.9 Cardiac arrest, cause unspecified; Z59.00 Homelessness unspecified; E87.0 Hyperosmolality and hypernatremia; I47.20 Ventricular tachycardia, unspecified; I38 Endocarditis, valve unspecified; N13.6 Pyonephrosis; F14.10 Cocaine abuse, uncomplicated; F10.229 Alcohol dependence with intoxication, unspecified; E87.70 Fluid overload, unspecified; E11.65 Type 2 diabetes mellitus with hyperglycemia; E78.00 Pure hypercholesterolemia, unspecified; F41.9 Anxiety disorder, unspecified; F39 Unspecified mood [affective] disorder; E87.6 Hypokalemia; K80.20 Calculus of gallbladder without cholecystitis without obstruction; F29 Unspecified psychosis not due to a substance or known physiological condition; I10 Essential (primary) hypertension; F17.200 Nicotine dependence, unspecified, uncomplicated; Z78.1 Physical restraint status; Z11.52 Encounter for screening for COVID-19; Z91.148 Patient's other noncompliance with medication regimen for other reason
CPT/HCPCS: 36415; 36569; 36600; 70450; 71045; 71250; 74018; 74176; 76604; 76770; 80048; 80053; 80076; 80202; 80307; 81001; 82550; 82805; 82947; 83605; 83615; 83735; 83880; 84100; 84439; 84443; 84484; 84550; 85025; 85027; 85610; 85730; 86140; 86480; 87015; 87040; 87070; 87077; 87086; 87088; 87116; 87186; 87205; 87206; 87324; 87804; 87811; 88108; 93005; 93306; 94002; 94003; 94660; 95816; 96372; 97110; 97116; 97161; 97165; 97530; 97542; 99285; J0612; J0692; J0696; J1450; J1650; J1815; J1940; J2185; J2250; J2270; J2405; J2543; J2704; J3010; J3411; J3480; J7030; J7040; J7050; J7613; P9047